=== PATIENT | male | born 1990 | race African-American/Black ===

== ENCOUNTER 2017-06-22 18:07 | Emergency (ER) | payer SELFPAY ==
[~2017-06-22] VITALS: Ht 180.3 cm; Wt 93.9 kg
[2017-06-22 18:30] VITALS: BP 110/86
[2017-06-22 22:11] LABS: Urine Bacteria FEW /hpf (None Seen); Urine Blood Negative /uL (Negative); Urine Mucus FEW (None Seen); Urine Specific Gravity 1.019 (1.001-1.035); Urine WBC 2 /hpf (0 - 3)
[2017-06-30] MEDS ORDERED: CLIN1CAP4 PO (12:24)
[2017-06-30] MEDS ORDERED: SACC250C PO (12:24)
== END 2017-06-23 02:06 | disposition left against medical advice (07) ==
LOC: ER 18:07
DX: M79.604 Pain in right leg (principal); Z53.21 Procedure and treatment not carried out due to patient leaving prior to being seen by health care provider
CPT/HCPCS: 81001

== ENCOUNTER 2017-06-24 23:32 | Inpatient (IN) | payer SELFPAY ==
[~2017-06-24] VITALS: Ht 180.3 cm; Wt 102.0 kg
[2017-06-25 00:49] LABS: Basophils # (auto) 0 uL; Basophils % (auto) 0.2 % (0.0-2.0); Eosinophils # (auto) 0.1 uL; Eosinophils % (auto) 0.8 % (0.0-7.0); Hematocrit 44.4 % (41.0-53.0); Hemoglobin 14.8 g/dL (13.5-17.5); Lymphocytes # (auto) 1.8 uL; Lymphocytes % (auto) 13.3 % (10.0-50.0); Mean Corpuscular Hgb Conc. 33.2 g/dL (32.0-36.0); Mean Corpuscular Volume 87.2 fL (80.0-100.0); Monocytes # (auto) 0.7 uL; Monocytes % (auto) 5.5 % (0.0-12.0); Neutrophils # (auto) 10.7 uL; Neutrophils % (auto) 80.2 % (37.0-80.0); Nucleated Red Blood Cells % 0.2 %; Platelet Count (auto) 291 10^3/uL (140-450); Red Blood Cells 5.09 10^6/uL (4.5-5.90); Red Cell Distribution Width 13.9 % (11.8-14.3); White Blood Cell 13.3 10^3/uL (4.4-10.8)
[2017-06-25 01:08] LABS: Albumin 3.3 g/dL (3.4-5.0); BUN/Creatinine Ratio 9.7; Calcium 9.5 mg/dL (8.5-10.1); Potassium 4.4 mmol/L (3.5-5.1)
[2017-06-25 01:10] LABS: Bilirubin, Total 0.3 mg/dL (0.2-1.0); Total Protein 9.8 g/dL (6.4-8.2)
[2017-06-25] MEDS ORDERED: CLINDAMYCIN 600MG IV 50 ML IV ONE (04:15)
[2017-06-25] MEDS ORDERED: HYDROcodone-ACET 5/325MG TAB PO ONE (04:15)
[2017-06-25] MEDS ORDERED: ACETAMINOPHEN 500 MG TAB PO PRN (05:15)
[2017-06-25] MEDS ORDERED: ONDANSETRON HCL 4 MG/2 ML VIAL IV PRN (05:15)
[2017-06-25] MEDS: CLINDAMYCIN 600MG IV 50 ML IV SCH ×3 (07:20→21:58)
[2017-06-25] MEDS: cefTRIAXone 1GM/10ml IVPUSH 10 ML IV SCH (09:32)
[2017-06-25 13:00] VITALS: BP 120/77
[2017-06-25] MEDS: SODIUM CHLORIDE 0.9% 1,000 ML IV SCH (16:04)
[2017-06-25] MEDS: HYDROcodone-ACET 5/325MG TAB PO PRN (16:12)
[2017-06-25 16:30] LABS: Urine Bacteria NONE SEEN /hpf (None Seen); Urine Blood Negative /uL (Negative); Urine Mucus FEW (None Seen); Urine Specific Gravity 1.034 (1.001-1.035); Urine WBC 3 /hpf (0 - 3)
[2017-06-25 16:34] VITALS: BP 114/66
[2017-06-25 16:40] LABS: Alcohol, Urine < 3.0 mg/dL (0-5); Amphetamine Screen, Urine NEGATIVE (NEGATIVE); Barbiturate Scree,Urine NEGATIVE (NEGATIVE); Benzodiazephine Screen, Urine NEGATIVE (NEGATIVE); Cannabinoid Screen, Urine NEGATIVE (NEGATIVE); Cocaine Screen, Urine NEGATIVE (NEGATIVE); Opiate Scree,Urine NEGATIVE (NEGATIVE); Phencyclidine Screen, Urine NEGATIVE (NEGATIVE)
[2017-06-25 22:00] VITALS: BP 134/85
[2017-06-26 05:10] VITALS: BP 137/85
[2017-06-26 06:01] LABS: Basophils # (auto) 0 uL; Basophils % (auto) 0.2 % (0.0-2.0); Eosinophils # (auto) 0.2 uL; Eosinophils % (auto) 1.2 % (0.0-7.0); Hematocrit 41.1 % (41.0-53.0); Hemoglobin 13.8 g/dL (13.5-17.5); Lymphocytes # (auto) 1.6 uL; Lymphocytes % (auto) 11.6 % (10.0-50.0); Mean Corpuscular Hemoglobin 29.5 pg (28.0-32.0); Mean Corpuscular Hgb Conc. 33.7 g/dL (32.0-36.0); Mean Corpuscular Volume 87.5 fL (80.0-100.0); Monocytes # (auto) 0.8 uL; Monocytes % (auto) 5.6 % (0.0-12.0); Neutrophils # (auto) 11.2 uL; Neutrophils % (auto) 81.4 % (37.0-80.0); Nucleated Red Blood Cells % 0.1 %; Platelet Count (auto) 241 10^3/uL (140-450); White Blood Cell 13.8 10^3/uL (4.4-10.8)
[2017-06-26 06:07] LABS: Potassium 3.6 mmol/L (3.5-5.1)
[2017-06-26 06:19] LABS: BUN/Creatinine Ratio 9.6; Calcium 8.6 mg/dL (8.5-10.1)
[2017-06-26] MEDS: HYDROcodone-ACET 5/325MG TAB PO PRN ×2 (06:36→16:17)
[2017-06-26] MEDS: CLINDAMYCIN 600MG IV 50 ML IV SCH ×3 (06:37→22:00)
[2017-06-26 08:00] VITALS: BP 128/72
[2017-06-26] MEDS: SODIUM CHLORIDE 0.9% 1,000 ML IV SCH ×2 (08:25→16:13)
[2017-06-26 09:00] VITALS: BP 128/72
[2017-06-26] MEDS: cefTRIAXone 1GM/10ml IVPUSH 10 ML IV SCH (09:26)
[2017-06-26 13:00] VITALS: BP 122/70
[2017-06-26 17:00] VITALS: BP 118/69
[2017-06-26 22:08] VITALS: BP 117/69
[2017-06-27 04:55] VITALS: BP 107/62
[2017-06-27 05:56] LABS: Basophils # (auto) 0 uL; Basophils % (auto) 0.2 % (0.0-2.0); Eosinophils # (auto) 0.1 uL; Eosinophils % (auto) 1.3 % (0.0-7.0); Hematocrit 41.1 % (41.0-53.0); Hemoglobin 13.8 g/dL (13.5-17.5); Lymphocytes # (auto) 1.8 uL; Lymphocytes % (auto) 16.7 % (10.0-50.0); Mean Corpuscular Hemoglobin 29.4 pg (28.0-32.0); Mean Corpuscular Hgb Conc. 33.6 g/dL (32.0-36.0); Mean Corpuscular Volume 87.5 fL (80.0-100.0); Monocytes # (auto) 0.9 uL; Neutrophils # (auto) 7.9 uL; Neutrophils % (auto) 73.8 % (37.0-80.0); Nucleated Red Blood Cells % 0.1 %; Platelet Count (auto) 252 10^3/uL (140-450); White Blood Cell 10.7 10^3/uL (4.4-10.8)
[2017-06-27] MEDS: CLINDAMYCIN 600MG IV 50 ML IV SCH ×3 (05:59→21:40)
[2017-06-27 09:00] VITALS: BP_SYST 111; BP_SYST 112; BP_DIAS 53; BP_DIAS 63
[2017-06-27] MEDS: SODIUM CHLORIDE 0.9% 1,000 ML IV SCH (09:31)
[2017-06-27] MEDS: cefTRIAXone 1GM/10ml IVPUSH 10 ML IV SCH (09:31)
[2017-06-27 13:00] VITALS: BP 108/52
[2017-06-27 16:21] VITALS: BP 101/66
[2017-06-27 16:23] VITALS: BP 123/66
[2017-06-27 18:22] LABS: INR 1.04 (0.9-1.15); Partial Thromboplastin Time 34.2 sec (22.64-33.71); Prothrombin Time 11.3 sec (9.37-12.3)
[2017-06-27 21:21] VITALS: BP 117/59
[2017-06-27] MEDS: ASCORBIC ACID 500 MG TAB PO SCH (21:40)
[2017-06-28 05:03] VITALS: BP 119/67
[2017-06-28] MEDS: SODIUM CHLORIDE 0.9% 1,000 ML IV SCH ×2 (05:49→21:55)
[2017-06-28] MEDS: CLINDAMYCIN 600MG IV 50 ML IV SCH ×3 (05:49→21:55)
[2017-06-28 08:09] VITALS: BP 113/68
[2017-06-28] MEDS: MULTIPLE VITAMIN TAB PO SCH (10:00)
[2017-06-28] MEDS: ASCORBIC ACID 500 MG TAB PO SCH ×2 (10:00→21:55)
[2017-06-28] MEDS: cefTRIAXone 1GM/10ml IVPUSH 10 ML IV SCH (10:05)
[2017-06-28 11:32] VITALS: BP 117/76
[2017-06-28] MEDS ORDERED: ceFAZolin 1GM VL ONE ×2 (12:21→12:23)
[2017-06-28] MEDS ORDERED: BUPIVACAINE 0.75% INJ 10ML MPV SDV IJ ONE (12:21)
[2017-06-28] MEDS ORDERED: NEOMYCIN-BACITRACIN-POLYM 15GM TOP OINT TOP ONE (12:21)
[2017-06-28] MEDS ORDERED: LIDOCAINE HCL 2 %PF INJ 10ML AMP IJ ONE (12:34)
[2017-06-28] MEDS ORDERED: PROPOFOL 10 MG/ML 20 ML IV ONE (12:34)
[2017-06-28] MEDS ORDERED: MIDAZOLAM HCL 1MG/1ML-2 ML VIAL ONE ×2 (12:34→12:55)
[2017-06-28] MEDS ORDERED: METOCLOPRAMIDE HCL 5MG/ml INJ 2ml VIAL ONE (12:38)
[2017-06-28] MEDS ORDERED: KETAMINE HCL 1 ML ONE (12:43)
[2017-06-28] MEDS ORDERED: diphenhdrAMINE HCL 50 MG/1 ML VL ONE (12:52)
[2017-06-28] MEDS ORDERED: MORPHINE SULFATE 4 MG/ML SYR/VIAL IV PRN (13:00)
[2017-06-28] MEDS ORDERED: KETOROLAC TROMETH 30 MG/ML 1ML VIAL IV PRN (13:00)
[2017-06-28] MEDS ORDERED: ONDANSETRON HCL 4 MG/2 ML VIAL IV ONE (13:00)
[2017-06-28] MEDS ORDERED: NALOXONE HCL 0.4 MG/ML VIAL IV PRN (13:00)
[2017-06-28 16:47] VITALS: BP 123/61
[2017-06-28 22:00] VITALS: BP 115/65
[2017-06-29 05:00] VITALS: BP 113/66
[2017-06-29] MEDS: CLINDAMYCIN 600MG IV 50 ML IV SCH ×3 (05:35→23:01)
[2017-06-29 06:14] LABS: Basophils # (auto) 0 uL; Basophils % (auto) 0.3 % (0.0-2.0); Eosinophils # (auto) 0.2 uL; Eosinophils % (auto) 2.3 % (0.0-7.0); Hematocrit 40.2 % (41.0-53.0); Hemoglobin 13.4 g/dL (13.5-17.5); Lymphocytes # (auto) 2.2 uL; Lymphocytes % (auto) 28.8 % (10.0-50.0); Mean Corpuscular Hemoglobin 28.9 pg (28.0-32.0); Mean Corpuscular Hgb Conc. 33.3 g/dL (32.0-36.0); Mean Corpuscular Volume 86.9 fL (80.0-100.0); Monocytes # (auto) 0.7 uL; Monocytes % (auto) 8.4 % (0.0-12.0); Neutrophils # (auto) 4.6 uL; Neutrophils % (auto) 60.2 % (37.0-80.0); Nucleated Red Blood Cells % 0.1 %; Platelet Count (auto) 291 10^3/uL (140-450); Red Blood Cells 4.63 10^6/uL (4.5-5.90); Red Cell Distribution Width 13.6 % (11.8-14.3); White Blood Cell 7.7 10^3/uL (4.4-10.8)
[2017-06-29 06:29] LABS: BUN/Creatinine Ratio 11.9; Calcium 8.7 mg/dL (8.5-10.1); Potassium 4.1 mmol/L (3.5-5.1)
[2017-06-29 09:00] VITALS: BP 122/68
[2017-06-29] MEDS: ASCORBIC ACID 500 MG TAB PO SCH ×2 (09:26→23:02)
[2017-06-29] MEDS: MULTIPLE VITAMIN TAB PO SCH (09:26)
[2017-06-29] MEDS: cefTRIAXone 1GM/10ml IVPUSH 10 ML IV SCH (09:29)
[2017-06-29] MEDS: HYDROcodone-ACET 5/325MG TAB PO PRN (11:35)
[2017-06-29 13:00] VITALS: BP 103/58
[2017-06-29 17:03] VITALS: BP 121/63
[2017-06-29] MEDS: SODIUM CHLORIDE 0.9% 1,000 ML IV SCH (23:01)
[2017-06-30 05:32] VITALS: BP 113/60
[2017-06-30] MEDS: CLINDAMYCIN 600MG IV 50 ML IV SCH ×2 (06:19→13:12)
[2017-06-30 09:00] VITALS: BP 101/62
[2017-06-30] MEDS: cefTRIAXone 1GM/10ml IVPUSH 10 ML IV SCH (09:31)
[2017-06-30] MEDS: ASCORBIC ACID 500 MG TAB PO SCH (09:32)
[2017-06-30] MEDS: MULTIPLE VITAMIN TAB PO SCH (09:32)
[2017-06-30] MEDS: HYDROcodone-ACET 5/325MG TAB PO PRN (09:33)
[2017-06-30] MEDS ORDERED: CLIN1CAP4 PO (12:24)
[2017-06-30] MEDS ORDERED: SACC250C PO (12:24)
[2017-06-30 12:41] VITALS: BP 101/62
[2017-06-30 13:05] VITALS: BP 101/62
== END 2017-06-30 14:35 | disposition home or self-care (01) | DRG 872 ==
LOC: ER 23:36 → OVERFLOW 23:37 → WEST WING 06-25 08:07
PROVIDERS: ADMIT Nurse Practitioner Family; ATTEND Internal Medicine
PROC: 0S9F3ZZ Drainage of Right Ankle Joint, Percutaneous Approach (ICD-10-PCS; principal; 2017-06-28 12:35)
DX: A41.02 Sepsis due to Methicillin resistant Staphylococcus aureus (principal); L02.415 Cutaneous abscess of right lower limb; L03.115 Cellulitis of right lower limb; I89.0 Lymphedema, not elsewhere classified; R22.9 Localized swelling, mass and lump, unspecified
CPT/HCPCS: 36415; 71045; 73700; 80048; 80053; 80307; 81001; 83605; 85025; 85610; 85730; 86850; 86900; 86901; 87040; 87070; 87075; 87077; 87186; 87205; 93005; 93971; 96365; J0690; J2250; J2704; J3490

== ENCOUNTER 2017-11-02 07:31 | Inpatient (IN) | payer SELFPAY ==
[~2017-11-02] VITALS: Ht 180.3 cm; Wt 105.0 kg
[~2017-11-02 07:31] MED LIST: CLIN1CAP4 PO; SACC250C PO
[2017-11-02 08:38] LABS: Basophils # (auto) 0 uL; Basophils % (auto) 0.2 % (0.0-2.0); Eosinophils # (auto) 0 uL; Eosinophils % (auto) 0.3 % (0.0-7.0); Hematocrit 50.8 % (41.0-53.0); Hemoglobin 16.8 g/dL (13.5-17.5); Lymphocytes # (auto) 1.7 uL; Lymphocytes % (auto) 12.7 % (10.0-50.0); Mean Corpuscular Hemoglobin 28.9 pg (28.0-32.0); Mean Corpuscular Hgb Conc. 33.1 g/dL (32.0-36.0); Mean Corpuscular Volume 87.4 fL (80.0-100.0); Monocytes # (auto) 0.4 uL; Neutrophils # (auto) 11.2 uL; Neutrophils % (auto) 83.8 % (37.0-80.0); Platelet Count (auto) 169 10^3/uL (140-450); Red Blood Cells 5.81 10^6/uL (4.5-5.90); Red Cell Distribution Width 14.5 % (11.8-14.3); White Blood Cell 13.4 10^3/uL (4.4-10.8)
[2017-11-02 09:11] LABS: Albumin 3.9 g/dL (3.4-5.0); Calcium 8.7 mg/dL (8.5-10.1); Potassium 3.8 mmol/L (3.5-5.1)
[2017-11-02 09:13] LABS: BUN/Creatinine Ratio 11.8
[2017-11-02 09:15] LABS: Bilirubin, Total 0.7 mg/dL (0.2-1.0); Total Protein 8.7 g/dL (6.4-8.2)
[2017-11-02] MEDS ORDERED: cefTRIAXone 1GM/10ml IVPUSH 10 ML IV ONE (13:00)
[2017-11-02] MEDS ORDERED: MORPHINE SULF(PF) 0.5MG/ML 10ML VIAL IV PRN (14:15)
[2017-11-02] MEDS ORDERED: NITROGLYCERIN 0.4 MG SL TAB SL PRN (14:15)
[2017-11-02] MEDS ORDERED: KETOROLAC TROMETH 30 MG/ML 1ML VIAL IV PRN (14:15)
[2017-11-02] MEDS ORDERED: TEMAZEPAM 15 MG CAP PO PRN (14:15)
[2017-11-02] MEDS ORDERED: LORazepam 0.5 MG TAB PO PRN (14:15)
[2017-11-02] MEDS ORDERED: ACETAMINOPHEN 500 MG TAB PO PRN (14:15)
[2017-11-02] MEDS: SODIUM CHLORIDE 0.9% 1,000 ML IV SCH (14:54)
[2017-11-02] MEDS: CLINDAMYCIN 600MG IV 50 ML IV SCH ×2 (14:54→22:38)
[2017-11-02 17:27] VITALS: BP_SYST 117; BP_SYST 120; BP_DIAS 57; BP_DIAS 62
[2017-11-02 17:30] LABS: INR 1.13 (0.9-1.15); Partial Thromboplastin Time 30.6 sec (23.78-33.04)
[2017-11-02 21:30] VITALS: BP 90/51
[2017-11-03] MEDS: SODIUM CHLORIDE 0.9% 1,000 ML IV SCH ×3 (04:09→20:03)
[2017-11-03 04:50] VITALS: BP 93/52
[2017-11-03] MEDS: CLINDAMYCIN 600MG IV 50 ML IV SCH ×3 (06:36→22:40)
[2017-11-03 07:31] VITALS: BP 101/62
[2017-11-03 08:02] LABS: Basophils # (auto) 0 uL; Basophils % (auto) 0.2 % (0.0-2.0); Eosinophils # (auto) 0 uL; Hematocrit 43.9 % (41.0-53.0); Hemoglobin 14.8 g/dL (13.5-17.5); Lymphocytes # (auto) 1.6 uL; Lymphocytes % (auto) 9.5 % (10.0-50.0); Mean Corpuscular Hemoglobin 29.3 pg (28.0-32.0); Mean Corpuscular Hgb Conc. 33.6 g/dL (32.0-36.0); Monocytes # (auto) 0.7 uL; Monocytes % (auto) 3.9 % (0.0-12.0); Neutrophils # (auto) 14.7 uL; Neutrophils % (auto) 86.4 % (37.0-80.0); Platelet Count (auto) 144 10^3/uL (140-450); Red Blood Cells 5.05 10^6/uL (4.5-5.90); Red Cell Distribution Width 14.7 % (11.8-14.3)
[2017-11-03] MEDS ORDERED: cefTRIAXone 1GM/10ml IVPUSH 10 ML IV SCH (09:00)
[2017-11-03] MEDS: PANTOPRAZOLE 40 MG TAB PO SCH (10:36)
[2017-11-03] MEDS: HYDROcodone-ACET 5/325MG TAB PO PRN ×2 (10:38→16:29)
[2017-11-03 12:28] VITALS: BP 114/69
[2017-11-03] MEDS ORDERED: VANCOMYCIN 1GM/250ML 250 ML IV ONE (13:45)
[2017-11-03] MEDS ORDERED: VANCOMYCIN PER PHARMACY 0 MG IV SCH (13:45)
[2017-11-03] MEDS: VANCOMYCIN 1,250 MG in D5W 5% 250 ML IV SCH (16:00)
[2017-11-03 16:47] VITALS: BP 122/66
[2017-11-03 21:52] VITALS: BP 122/63
[2017-11-03 23:07] LABS: Urine Bacteria NONE SEEN /hpf (None Seen); Urine Blood Negative /uL (Negative); Urine Specific Gravity 1.011 (1.001-1.035); Urine WBC 32 /hpf (0 - 3)
[2017-11-04] MEDS: VANCOMYCIN 1,250 MG in D5W 5% 250 ML IV SCH (02:57)
[2017-11-04 04:53] VITALS: BP 116/63
[2017-11-04] MEDS: CLINDAMYCIN 600MG IV 50 ML IV SCH (06:18)
[2017-11-04] MEDS: SODIUM CHLORIDE 0.9% 1,000 ML IV SCH (06:19)
[2017-11-04 08:00] VITALS: BP 98/63
[2017-11-04] MEDS: PANTOPRAZOLE 40 MG TAB PO SCH (09:26)
[2017-11-04 12:52] VITALS: BP 110/56
== END 2017-11-04 14:20 | disposition home or self-care (01) | DRG 603 ==
LOC: ER 07:31 → TELE 07:32 → TELE-EAST 15:32
PROVIDERS: ADMIT Internal Medicine; ATTEND Internal Medicine Pulmonary Disease
DX: L03.115 Cellulitis of right lower limb (principal); I89.0 Lymphedema, not elsewhere classified; Z82.49 Family history of ischemic heart disease and other diseases of the circulatory system; Z86.14 Personal history of Methicillin resistant Staphylococcus aureus infection
CPT/HCPCS: 36415; 71046; 73590; 80053; 81001; 83605; 83735; 85025; 85610; 85652; 85730; 87040; 87081; 93971; 94761; 96361; 96365; 96375; J3490; J7060

== ENCOUNTER 2018-03-07 13:38 | Inpatient (IN) | payer MEDICAID ==
[~2018-03-07] VITALS: Ht 180.3 cm; Wt 110.5 kg
[2018-03-07 14:37] LABS: Basophils # (auto) 0.1 uL; Basophils % (auto) 0.4 % (0.0-2.0); Eosinophils # (auto) 0 uL; Eosinophils % (auto) 0.1 % (0.0-7.0); Hematocrit 47.2 % (41.0-53.0); Hemoglobin 15.7 g/dL (13.5-17.5); Lymphocytes % (auto) 6.9 % (10.0-50.0); Mean Corpuscular Hemoglobin 29.3 pg (28.0-32.0); Mean Corpuscular Hgb Conc. 33.3 g/dL (32.0-36.0); Mean Corpuscular Volume 88.2 fL (80.0-100.0); Monocytes # (auto) 0.5 uL; Monocytes % (auto) 3.2 % (0.0-12.0); Neutrophils # (auto) 12.8 uL; Neutrophils % (auto) 89.4 % (37.0-80.0); Nucleated Red Blood Cells % 0.1 %; Platelet Count (auto) 186 10^3/uL (140-450); Red Blood Cells 5.36 10^6/uL (4.5-5.90); Red Cell Distribution Width 13.9 % (11.8-14.3); White Blood Cell 14.3 10^3/uL (4.4-10.8)
[2018-03-07 14:54] LABS: Albumin 3.6 g/dL (3.4-5.0); Calcium 8.8 mg/dL (8.5-10.1); Potassium 3.4 mmol/L (3.5-5.1)
[2018-03-07 14:56] LABS: BUN/Creatinine Ratio 13.4; Bilirubin, Total 0.4 mg/dL (0.2-1.0); Total Protein 8.6 g/dL (6.4-8.2)
[2018-03-07] MEDS ORDERED: SODIUM CHLORIDE 0.9% 1,000 ML IVB ONE (15:57)
[2018-03-07] MEDS ORDERED: ACETAMINOPHEN 500 MG TAB PO ONE (16:00)
[2018-03-07] MEDS ORDERED: cefTRIAXone 1GM/50ML D5W 50 ML IV ONE (17:00)
[2018-03-07 17:43] LABS: INR 1.01 (0.9-1.15); Partial Thromboplastin Time 25.5 sec (23.78-33.04); Prothrombin Time 10.8 sec (9.27-12.13)
[2018-03-07] MEDS ORDERED: IBUPROFEN 600 MG TAB PO ONE (17:45)
[2018-03-07] MEDS ORDERED: SODIUM CHLORIDE 0.9% 1,000 ML IV ONE (18:15)
[2018-03-07] MEDS ORDERED: IOHEXOL 300 MG/ML 100ML BOTTLE IJ ONE ×2 (18:55→20:03)
[2018-03-07] MEDS ORDERED: PIPERACILLIN-TAZO 4.5GM 100 ML IV ONE (19:15)
[2018-03-07] MEDS ORDERED: VANCOMYCIN 1GM/250ML 250 ML IV ONE (19:15)
[2018-03-07] MEDS ORDERED: ACETAMINOPHEN 500 MG TAB PO PRN (20:45)
[2018-03-07] MEDS ORDERED: TEMAZEPAM 15 MG CAP PO PRN (20:45)
[2018-03-07] MEDS ORDERED: ONDANSETRON HCL 4 MG/2 ML VIAL IV PRN (20:45)
[2018-03-07] MEDS ORDERED: VANCOMYCIN PER PHARMACY 0 MG IV SCH (20:45)
[2018-03-07] MEDS ORDERED: LORazepam 0.5 MG TAB PO PRN (20:45)
[2018-03-07] MEDS ORDERED: traMADol HCL 50 MG TAB PO PRN (20:45)
[2018-03-07] MEDS ORDERED: KETOROLAC TROMETH 30 MG/ML 1ML VIAL IV PRN (20:45)
[2018-03-07] MEDS ORDERED: NITROGLYCERIN 0.4 MG SL TAB SL PRN (22:45)
[2018-03-07] MEDS ORDERED: MORPHINE SULFATE 4 MG/ML SYR/VIAL IV PRN (22:45)
[2018-03-08] MEDS: VANCOMYCIN 1,250 MG in D5W 5% 250 ML IV SCH ×3 (01:52→18:26)
[2018-03-08] MEDS: PIPERACILLIN-TAZO 4.5GM 100 ML IV SCH ×3 (03:56→21:55)
[2018-03-08 04:08] LABS: Basophils # (auto) 0 uL; Eosinophils # (auto) 0 uL; Eosinophils % (auto) 0.2 % (0.0-7.0); Hematocrit 42.3 % (41.0-53.0); Lymphocytes # (auto) 1.1 uL; Lymphocytes % (auto) 6.5 % (10.0-50.0); Mean Corpuscular Hemoglobin 28.9 pg (28.0-32.0); Mean Corpuscular Hgb Conc. 33.1 g/dL (32.0-36.0); Mean Corpuscular Volume 87.5 fL (80.0-100.0); Monocytes # (auto) 0.6 uL; Monocytes % (auto) 3.6 % (0.0-12.0); Neutrophils # (auto) 14.8 uL; Neutrophils % (auto) 89.7 % (37.0-80.0); Platelet Count (auto) 147 10^3/uL (140-450); Red Blood Cells 4.83 10^6/uL (4.5-5.90); Red Cell Distribution Width 14.1 % (11.8-14.3); White Blood Cell 16.5 10^3/uL (4.4-10.8)
[2018-03-08 14:45] VITALS: BP 103/64
[2018-03-09] MEDS: VANCOMYCIN 1,250 MG in D5W 5% 250 ML IV SCH (01:55)
[2018-03-09] MEDS ORDERED: PIPERACILLIN-TAZO 4.5GM 100 ML IV ONE (04:18)
[2018-03-09] MEDS: PIPERACILLIN-TAZO 4.5GM 100 ML IV SCH ×3 (04:38→20:46)
[2018-03-09 05:00] VITALS: BP 116/67
[2018-03-09 09:00] VITALS: BP 97/64
[2018-03-09] MEDS ORDERED: VANCOMYCIN 1,250 MG in D5W 5% 250 ML IV ONE (11:00)
[2018-03-09 13:00] VITALS: BP 116/65
[2018-03-09 15:14] LABS: Basophils # (auto) 0 uL; Basophils % (auto) 0.4 % (0.0-2.0); Eosinophils # (auto) 0.1 uL; Eosinophils % (auto) 1.2 % (0.0-7.0); Hematocrit 42.9 % (41.0-53.0); Hemoglobin 14.6 g/dL (13.5-17.5); Lymphocytes # (auto) 0.8 uL; Lymphocytes % (auto) 8.4 % (10.0-50.0); Mean Corpuscular Hemoglobin 29.8 pg (28.0-32.0); Mean Corpuscular Volume 87.8 fL (80.0-100.0); Monocytes # (auto) 0.4 uL; Monocytes % (auto) 4.2 % (0.0-12.0); Neutrophils # (auto) 8.6 uL; Neutrophils % (auto) 85.8 % (37.0-80.0); Nucleated Red Blood Cells % 0.1 %; Platelet Count (auto) 151 10^3/uL (140-450); Red Blood Cells 4.89 10^6/uL (4.5-5.90); Red Cell Distribution Width 14.4 % (11.8-14.3)
[2018-03-09 15:33] LABS: Calcium 8.5 mg/dL (8.5-10.1); Potassium 3.5 mmol/L (3.5-5.1)
[2018-03-09 15:36] LABS: BUN/Creatinine Ratio 8.5; Bilirubin, Total 0.3 mg/dL (0.2-1.0); Total Protein 8.2 g/dL (6.4-8.2)
[2018-03-09 16:00] VITALS: BP 107/64
[2018-03-09 22:00] VITALS: BP 120/63
[2018-03-10] MEDS: VANCOMYCIN 1,250 MG in D5W 5% 250 ML IV SCH ×3 (00:10→23:04)
[2018-03-10] MEDS: PIPERACILLIN-TAZO 4.5GM 100 ML IV SCH ×3 (03:37→21:43)
[2018-03-10 05:00] VITALS: BP 105/55
[2018-03-10 05:04] LABS: Basophils # (auto) 0 uL; Basophils % (auto) 0.3 % (0.0-2.0); Eosinophils # (auto) 0.2 uL; Eosinophils % (auto) 1.8 % (0.0-7.0); Hematocrit 40.9 % (41.0-53.0); Hemoglobin 13.9 g/dL (13.5-17.5); Lymphocytes # (auto) 1.1 uL; Lymphocytes % (auto) 11.9 % (10.0-50.0); Mean Corpuscular Hemoglobin 29.9 pg (28.0-32.0); Mean Corpuscular Hgb Conc. 34.1 g/dL (32.0-36.0); Mean Corpuscular Volume 87.7 fL (80.0-100.0); Monocytes # (auto) 0.6 uL; Platelet Count (auto) 148 10^3/uL (140-450); Red Blood Cells 4.66 10^6/uL (4.5-5.90); White Blood Cell 8.9 10^3/uL (4.4-10.8)
[2018-03-10 05:19] LABS: BUN/Creatinine Ratio 10.1; Calcium 7.8 mg/dL (8.5-10.1); Potassium 3.6 mmol/L (3.5-5.1)
[2018-03-10 09:00] VITALS: BP 111/58
[2018-03-10 12:59] VITALS: BP 111/50
[2018-03-10 17:04] VITALS: BP 122/66
[2018-03-10 22:00] VITALS: BP 120/59
[2018-03-11] MEDS: PIPERACILLIN-TAZO 4.5GM 100 ML IV SCH (03:42)
[2018-03-11 05:00] VITALS: BP 108/55
[2018-03-11 05:15] LABS: Basophils # (auto) 0 uL; Basophils % (auto) 0.3 % (0.0-2.0); Eosinophils # (auto) 0.2 uL; Eosinophils % (auto) 3.2 % (0.0-7.0); Hematocrit 42.4 % (41.0-53.0); Hemoglobin 14.2 g/dL (13.5-17.5); Lymphocytes # (auto) 1.2 uL; Lymphocytes % (auto) 17.1 % (10.0-50.0); Mean Corpuscular Hemoglobin 29.7 pg (28.0-32.0); Mean Corpuscular Hgb Conc. 33.6 g/dL (32.0-36.0); Mean Corpuscular Volume 88.6 fL (80.0-100.0); Monocytes # (auto) 0.5 uL; Monocytes % (auto) 7.1 % (0.0-12.0); Neutrophils # (auto) 5.1 uL; Neutrophils % (auto) 72.3 % (37.0-80.0); Nucleated Red Blood Cells % 0.1 %; Platelet Count (auto) 172 10^3/uL (140-450); Red Blood Cells 4.79 10^6/uL (4.5-5.90); Red Cell Distribution Width 14.5 % (11.8-14.3)
[2018-03-11 05:37] LABS: Calcium 8.5 mg/dL (8.5-10.1)
[2018-03-11 05:43] LABS: Albumin 2.8 g/dL (3.4-5.0); BUN/Creatinine Ratio 9.8; Bilirubin, Total 0.3 mg/dL (0.2-1.0); Total Protein 7.7 g/dL (6.4-8.2)
[2018-03-11 08:53] VITALS: BP 132/66
[2018-03-11] MEDS ORDERED: VANCOMYCIN 1,250 MG in D5W 5% 250 ML IV SCH (12:00)
[2018-03-11 13:00] VITALS: BP 115/52
[2018-03-11] MEDS ORDERED: PIPERACILLIN-TAZO 4.5GM 100 ML IV SCH (14:00)
[2018-03-11 17:50] VITALS: BP 115/52
[2018-03-11 20:40] VITALS: BP 125/78
[2018-03-11 20:41] VITALS: BP 125/78
== END 2018-03-11 20:40 | disposition home health service (06) | DRG 720 ==
LOC: ER 13:38 → TELE 13:39 → TELE-CENTR 03-08 14:45
PROVIDERS: ADMIT Nurse Practitioner; ATTEND Internal Medicine
DX: A41.9 Sepsis, unspecified organism (principal); E44.0 Moderate protein-calorie malnutrition; L03.115 Cellulitis of right lower limb; I89.0 Lymphedema, not elsewhere classified; L02.419 Cutaneous abscess of limb, unspecified; L98.8 Other specified disorders of the skin and subcutaneous tissue; B96.5 Pseudomonas (aeruginosa) (mallei) (pseudomallei) as the cause of diseases classified elsewhere; B95.61 Methicillin susceptible Staphylococcus aureus infection as the cause of diseases classified elsewhere; E87.6 Hypokalemia; Z68.34 Body mass index [BMI] 34.0-34.9, adult; Z82.49 Family history of ischemic heart disease and other diseases of the circulatory system
CPT/HCPCS: 36415; 71045; 73701; 80048; 80053; 80202; 82565; 83605; 83735; 85025; 85610; 85652; 85730; 87040; 87077; 87186; 87205; 96361; 96365; 96368; G0378; J0696; J2543; J7060

== ENCOUNTER 2018-11-15 21:45 | Emergency (ER) | payer MEDICAID ==
[~2018-11-15] VITALS: Ht 172.7 cm; Wt 80.7 kg
[~2018-11-15 21:45] MED LIST changes: +CEPH250C PO
[2018-11-15] MEDS ORDERED: ACETAMINOPHEN 325 MG TAB PO ONE (22:00)
[2018-11-15 22:21] LABS: Basophils # (auto) 0 uL; Basophils % (auto) 0.6 % (0.0-2.0); Eosinophils # (auto) 0 uL; Eosinophils % (auto) 0.6 % (0.0-7.0); Hematocrit 41.7 % (41.0-53.0); Lymphocytes # (auto) 1.3 uL; Lymphocytes % (auto) 22.8 % (10.0-50.0); Mean Corpuscular Hemoglobin 28.6 pg (28.0-32.0); Mean Corpuscular Hgb Conc. 33.6 g/dL (32.0-36.0); Monocytes # (auto) 0.5 uL; Monocytes % (auto) 8.6 % (0.0-12.0); Neutrophils # (auto) 3.7 uL; Neutrophils % (auto) 67.4 % (37.0-80.0); Nucleated Red Blood Cells % 0.1 %; Platelet Count (auto) 110 10^3/uL (140-450); Red Blood Cells 4.91 10^6/uL (4.5-5.90); Red Cell Distribution Width 14.4 % (11.8-14.3); White Blood Cell 5.5 10^3/uL (4.4-10.8)
[2018-11-15 22:34] LABS: Alanine Aminotransferase 32 U/L (16-61); Albumin 3.1 g/dL (3.4-5.0); Anion Gap 7 (5-15); Aspartate Aminotransferase 35 U/L (15-37); BUN/Creatinine Ratio 7.1; Blood Urea Nitrogen 9 mg/dL (7-18); Calcium 7.9 mg/dL (8.5-10.1); Carbon Dioxide 23 mmol/L (21-32); Chloride 108 mmol/L (98-107); GFR African American 87 mL/min; GFR Non-African American 72 mL/min; Glucose 94 mg/dL (74-106); Potassium 3.2 mmol/L (3.5-5.1); Sodium 138 mmol/L (136-145)
[2018-11-15 22:39] LABS: Alkaline Phosphatase 80 U/L (45-117); Bilirubin, Total 0.7 mg/dL (0.2-1.0); Total Protein 7.5 g/dL (6.4-8.2)
[2018-11-16] MEDS ORDERED: metroNIDAZOLE 500 MG TAB PO ONE (01:00)
[2018-11-16] MEDS ORDERED: cefTRIAXone 1GM/50ML D5W 50 ML IV ONE (01:00)
[2018-11-16] MEDS ORDERED: POTASSIUM CHL 20 Meq TABLET PO ONE (01:15)
[2018-11-16 01:40] VITALS: BP 109/72
== END 2018-11-16 01:43 | disposition home or self-care (01) ==
LOC: EDBD 21:49 → EDUNIT# 21:49 → ER 21:53
DX: K52.9 Noninfective gastroenteritis and colitis, unspecified (principal); R50.9 Fever, unspecified; I50.9 Heart failure, unspecified; Z79.899 Other long term (current) drug therapy
CPT/HCPCS: 36415; 71045; 74176; 80053; 83605; 83880; 84484; 85025; 87040; 93005; 94761; 96365; 99284; J0696

== ENCOUNTER 2019-01-17 21:05 | Emergency (ER) | payer MEDICAID ==
[~2019-01-17] VITALS: Ht 180.3 cm; Wt 132.9 kg
[~2019-01-17 21:05] MED LIST changes: -CLIN1CAP4 PO; +CLIN300C8 PO
[2019-01-17 22:56] LABS: Basophils # (auto) 0 uL; Basophils % (auto) 0.2 % (0.0-2.0); Eosinophils # (auto) 0.1 uL; Eosinophils % (auto) 0.6 % (0.0-7.0); Hematocrit 44.5 % (41.0-53.0); Hemoglobin 14.8 g/dL (13.5-17.5); Lymphocytes % (auto) 27.5 % (10.0-50.0); Mean Corpuscular Hemoglobin 28.3 pg (28.0-32.0); Mean Corpuscular Hgb Conc. 33.3 g/dL (32.0-36.0); Monocytes # (auto) 0.7 uL; Monocytes % (auto) 6.3 % (0.0-12.0); Neutrophils # (auto) 7.1 uL; Neutrophils % (auto) 65.4 % (37.0-80.0); Platelet Count (auto) 218 10^3/uL (140-450); Red Blood Cells 5.24 10^6/uL (4.5-5.90); Red Cell Distribution Width 14.9 % (11.8-14.3); White Blood Cell 10.8 10^3/uL (4.4-10.8)
[2019-01-17 23:14] LABS: Albumin 3.4 g/dL (3.4-5.0); Calcium 8.5 mg/dL (8.5-10.1)
[2019-01-17 23:18] LABS: BUN/Creatinine Ratio 8.7
[2019-01-17 23:20] LABS: Bilirubin, Total 0.4 mg/dL (0.2-1.0); Total Protein 9.1 g/dL (6.4-8.2)
[2019-01-18 02:00] VITALS: BP 105/55
[2019-01-18] MEDS ORDERED: cefTRIAXone W LIDOCAINE 1 GM IM IM ONE (02:15)
[2019-01-18] MEDS ORDERED: ONDANSETRON ODT 4 MG TAB PO ONE (02:15)
[2019-01-18] MEDS ORDERED: HYDROcodone-ACET 5/325MG TAB PO ONE (02:15)
[2019-01-18] MEDS ORDERED: LIDOCAINE 2% (LOCAL ANESTH.) PF 5ml SDV ONE (02:41)
[2019-01-18] MEDS ORDERED: cefTRIAXone SOD 1,000 MG VL ONE (02:42)
== END 2019-01-18 03:48 | disposition home or self-care (01) ==
LOC: ER 21:05
DX: L03.116 Cellulitis of left lower limb (principal); I89.0 Lymphedema, not elsewhere classified
CPT/HCPCS: 36415; 80053; 83605; 85025; 87040; 96372; 99283; J0696; J2001; Q0162

== ENCOUNTER 2019-10-26 13:11 | Emergency (ER) | payer MEDICAID ==
[~2019-10-26] VITALS: Ht 180.3 cm; Wt 138.8 kg
[2019-10-26 13:30] VITALS: BP 112/83
== END 2019-10-26 14:55 | disposition home or self-care (01) ==
LOC: ER 13:11
DX: U07.1 COVID-19 (principal)
CPT/HCPCS: 71045; 87635

== ENCOUNTER 2020-03-23 00:56 | Inpatient (IN) | payer MEDICAID ==
[~2020-03-23] VITALS: Ht 180.3 cm; Wt 150.3 kg
[2020-03-23 11:55] LABS: Basophils # (auto) 0 10 ^3/uL (0-0.2); Basophils % (auto) 0.3 % (0.0-2.0); Eosinophils # (auto) 0 10 ^3/uL (0-0.8); Eosinophils % (auto) 0.3 % (0.0-7.0); Hematocrit 48.1 % (41.0-53.0); Hemoglobin 16.3 g/dL (13.5-17.5); Lymphocytes # (auto) 3.5 10 ^3/uL (0.4-5.4); Lymphocytes % (auto) 27.7 % (10.0-50.0); Mean Corpuscular Hemoglobin 29.4 pg (28.0-32.0); Mean Corpuscular Hgb Conc. 33.8 g/dL (32.0-36.0); Mean Corpuscular Volume 86.9 fL (80.0-100.0); Monocytes # (auto) 0.6 10 ^3/uL (0-1.3); Monocytes % (auto) 4.6 % (0.0-12.0); Neutrophils # (auto) 8.6 10 ^3/uL (1.6-8.6); Neutrophils % (auto) 67.1 % (37.0-80.0); Platelet Count (auto) 190 10^3/uL (140-450); Red Blood Cells 5.53 10^6/uL (4.5-5.90); Red Cell Distribution Width 14.4 % (11.8-14.3); White Blood Cell 12.8 10^3/uL (4.4-10.8)
[2020-03-23 12:22] LABS: Albumin 3.9 g/dL (3.4-5.0); Calcium 9.2 mg/dL (8.5-10.1)
[2020-03-23 12:25] LABS: BUN/Creatinine Ratio 13.5; Bilirubin, Total 0.4 mg/dL (0.2-1.0)
[2020-03-23] MEDS ORDERED: CLINDAMYCIN 600MG IV 50 ML IV ONE (13:00)
[2020-03-23] MEDS ORDERED: ONDANSETRON HCL 4 MG/2 ML VIAL IV ONE (13:00)
[2020-03-23] MEDS ORDERED: MORPHINE SULFATE 4 MG/ML SYR/VIAL IV ONE (13:00)
[2020-03-23] MEDS ORDERED: MORPHINE SULF INJ 2 MG/ML SYRINGE 1ML IV PRN ×3 (13:30→14:45)
[2020-03-23] MEDS ORDERED: NITROGLYCERIN 0.4 MG SL TAB SL PRN ×2 (13:30→14:45)
[2020-03-23] MEDS ORDERED: LORazepam 0.5 MG TAB PO PRN (14:45)
[2020-03-23] MEDS ORDERED: cefTRIAXone 1GM/50ML D5W 50 ML IV ONE (14:45)
[2020-03-23] MEDS ORDERED: DOCUSATE SOD 100 MG CAP PO PRN (14:45)
[2020-03-23] MEDS ORDERED: ALUM & MAG HYDROX-SIMETH LIQ(MAALOX) 30 ML PO PRN (14:45)
[2020-03-23] MEDS ORDERED: HYDROcodone-ACET 5/325MG TAB PO PRN (14:45)
[2020-03-23] MEDS ORDERED: ONDANSETRON HCL 4 MG/2 ML VIAL IV PRN (14:45)
[2020-03-23] MEDS ORDERED: ACETAMINOPHEN 325 MG TAB PO PRN (14:45)
[2020-03-23 15:20] LABS: Cholesterol 180 mg/dL (< 200)
[2020-03-23 15:24] LABS: HDL Cholesterol 63 mg/dL (40-59); LDL Cholesterol 108 mg/dL (< 100); Triglycerides 67 mg/dL (< 150)
[2020-03-23] MEDS ORDERED: METR500T PO ×2 (16:24→16:25)
[2020-03-23] MEDS ORDERED: IOHEXOL 350 MG/ML 100ML IJ ONE (16:31)
[2020-03-23 17:10] VITALS: BP 129/88
[2020-03-23 17:16] VITALS: BP 129/88
[2020-03-23] MEDS ORDERED: INFLUENZA QUAD 2020-2021 0.5 ML SYRG IM ONE (17:30)
[2020-03-23] MEDS: FUROSEMIDE 20 MG/2 ML VIAL IV SCH (17:34)
[2020-03-23 21:36] LABS: Urine Specific Gravity 1.007 (1.001-1.035)
[2020-03-23 21:37] LABS: Urine Bacteria NONE SEEN /hpf (None Seen); Urine Blood Negative /uL (Negative); Urine WBC 1 /hpf (0 - 3)
[2020-03-23 21:52] LABS: Alcohol, Urine < 3.0 mg/dL (0-10); Amphetamine Screen, Urine NEGATIVE (NEGATIVE); Barbiturate Scree,Urine NEGATIVE (NEGATIVE); Benzodiazephine Screen, Urine NEGATIVE (NEGATIVE); Cannabinoid Screen, Urine NEGATIVE (NEGATIVE); Cocaine Screen, Urine NEGATIVE (NEGATIVE); Opiate Scree,Urine NEGATIVE (NEGATIVE); Phencyclidine Screen, Urine NEGATIVE (NEGATIVE)
[2020-03-23 22:00] VITALS: BP 121/68
[2020-03-23] MEDS: ATORVASTATIN 20 MG TAB PO SCH (22:27)
[2020-03-23] MEDS: CLINDAMYCIN 600MG IV 50 ML IV SCH (22:36)
[2020-03-24 05:00] VITALS: BP 100/58
[2020-03-24] MEDS: CLINDAMYCIN 600MG IV 50 ML IV SCH ×3 (05:41→21:08)
[2020-03-24] MEDS: FUROSEMIDE 20 MG/2 ML VIAL IV SCH ×2 (05:42→17:15)
[2020-03-24] MEDS ORDERED: IOHEXOL 350 MG/ML 100ML IJ ONE (07:15)
[2020-03-24 08:00] VITALS: BP 118/75
[2020-03-24 09:00] VITALS: BP 118/75
[2020-03-24] MEDS: ASPirin 81 mg TAB PO SCH (09:15)
[2020-03-24] MEDS: ENOXAPARIN SOD 40 MG/0.4 ML SYRINGE SC SCH (09:16)
[2020-03-24] MEDS: cefTRIAXone 1GM/50ML D5W 50 ML IV SCH (09:16)
[2020-03-24 11:36] LABS: Basophils # (auto) 0 10 ^3/uL (0-0.2); Basophils % (auto) 0.4 % (0.0-2.0); Eosinophils # (auto) 0.1 10 ^3/uL (0-0.8); Eosinophils % (auto) 0.5 % (0.0-7.0); Hematocrit 45.4 % (41.0-53.0); Hemoglobin 15.3 g/dL (13.5-17.5); Lymphocytes # (auto) 3.1 10 ^3/uL (0.4-5.4); Lymphocytes % (auto) 30.4 % (10.0-50.0); Mean Corpuscular Hemoglobin 29.2 pg (28.0-32.0); Mean Corpuscular Hgb Conc. 33.6 g/dL (32.0-36.0); Mean Corpuscular Volume 86.9 fL (80.0-100.0); Monocytes # (auto) 0.5 10 ^3/uL (0-1.3); Monocytes % (auto) 4.8 % (0.0-12.0); Neutrophils # (auto) 6.5 10 ^3/uL (1.6-8.6); Neutrophils % (auto) 63.9 % (37.0-80.0); Platelet Count (auto) 201 10^3/uL (140-450); Red Blood Cells 5.22 10^6/uL (4.5-5.90); Red Cell Distribution Width 14.6 % (11.8-14.3); White Blood Cell 10.1 10^3/uL (4.4-10.8)
[2020-03-24 11:52] LABS: Albumin 3.4 g/dL (3.4-5.0); Calcium 8.6 mg/dL (8.5-10.1); Potassium 3.6 mmol/L (3.5-5.1)
[2020-03-24 11:55] LABS: Bilirubin, Total 0.3 mg/dL (0.2-1.0); Total Protein 8.7 g/dL (6.4-8.2)
[2020-03-24 13:00] VITALS: BP 106/69
[2020-03-24 17:00] VITALS: BP 129/92
[2020-03-24] MEDS: ATORVASTATIN 20 MG TAB PO SCH (21:08)
[2020-03-24 22:00] VITALS: BP 125/73
[2020-03-25 05:00] VITALS: BP 127/62
[2020-03-25] MEDS: FUROSEMIDE 20 MG/2 ML VIAL IV SCH ×2 (06:37→18:13)
[2020-03-25] MEDS: CLINDAMYCIN 600MG IV 50 ML IV SCH ×3 (06:38→21:45)
[2020-03-25 09:00] VITALS: BP 125/75
[2020-03-25] MEDS: ASPirin 81 mg TAB PO SCH (09:57)
[2020-03-25] MEDS: cefTRIAXone 1GM/50ML D5W 50 ML IV SCH (09:57)
[2020-03-25] MEDS: ENOXAPARIN SOD 40 MG/0.4 ML SYRINGE SC SCH (09:58)
[2020-03-25 13:00] VITALS: BP 116/65
[2020-03-25 17:00] VITALS: BP 129/77
[2020-03-25] MEDS: ATORVASTATIN 20 MG TAB PO SCH (21:45)
[2020-03-25 22:00] VITALS: BP 113/65
[2020-03-26 05:00] VITALS: BP 99/59
[2020-03-26] MEDS: FUROSEMIDE 20 MG/2 ML VIAL IV SCH ×2 (06:28→18:00)
[2020-03-26] MEDS: CLINDAMYCIN 600MG IV 50 ML IV SCH ×2 (06:28→14:00)
[2020-03-26 08:13] LABS: Basophils # (auto) 0 10 ^3/uL (0-0.2); Basophils % (auto) 0.3 % (0.0-2.0); Eosinophils # (auto) 0.1 10 ^3/uL (0-0.8); Eosinophils % (auto) 0.8 % (0.0-7.0); Hematocrit 44.5 % (41.0-53.0); Hemoglobin 14.5 g/dL (13.5-17.5); Lymphocytes # (auto) 3.8 10 ^3/uL (0.4-5.4); Lymphocytes % (auto) 37.9 % (10.0-50.0); Mean Corpuscular Hemoglobin 28.4 pg (28.0-32.0); Mean Corpuscular Hgb Conc. 32.6 g/dL (32.0-36.0); Mean Corpuscular Volume 86.9 fL (80.0-100.0); Monocytes # (auto) 0.6 10 ^3/uL (0-1.3); Neutrophils # (auto) 5.6 10 ^3/uL (1.6-8.6); Platelet Count (auto) 211 10^3/uL (140-450); Red Blood Cells 5.12 10^6/uL (4.5-5.90); Red Cell Distribution Width 14.5 % (11.8-14.3); White Blood Cell 10.1 10^3/uL (4.4-10.8)
[2020-03-26 09:00] VITALS: BP 111/72
[2020-03-26] MEDS: cefTRIAXone 1GM/50ML D5W 50 ML IV SCH (10:57)
[2020-03-26] MEDS: ASPirin 81 mg TAB PO SCH (10:57)
[2020-03-26] MEDS: ENOXAPARIN SOD 40 MG/0.4 ML SYRINGE SC SCH (10:57)
[2020-03-26 13:00] VITALS: BP 129/71
[2020-03-26 17:00] VITALS: BP 118/78
== END 2020-03-26 18:55 | disposition home or self-care (01) | DRG 383 ==
LOC: ER 00:57 → TELE 00:58 → TELE-WESTW 16:44
PROVIDERS: ADMIT Hospitalist; ATTEND Internal Medicine
DX: L03.115 Cellulitis of right lower limb (principal); I89.0 Lymphedema, not elsewhere classified; I87.2 Venous insufficiency (chronic) (peripheral); D72.829 Elevated white blood cell count, unspecified; E78.5 Hyperlipidemia, unspecified; I87.8 Other specified disorders of veins; Z82.49 Family history of ischemic heart disease and other diseases of the circulatory system
CPT/HCPCS: 36415; 75635; 80053; 80061; 80307; 81001; 83036; 84484; 85025; 85652; 87040; 87081; 87086; 93970; G0378; J0696; J2405; J3490

== ENCOUNTER 2020-05-01 00:14 | Inpatient (IN) | payer MEDICAID ==
[~2020-05-01] VITALS: Ht 180.3 cm; Wt 158.0 kg
[~2020-05-01 00:14] MED LIST changes: -CEPH250C PO; -CLIN300C8 PO; +METR500T PO; -SACC250C PO
[2020-05-01] MEDS ORDERED: HYDROmorphone HCL 2 MG/ML VL IV ONE (00:30)
[2020-05-01] MEDS ORDERED: ONDANSETRON HCL 4 MG/2 ML VIAL IV ONE (00:30)
[2020-05-01] MEDS ORDERED: MORPHINE SULFATE 4 MG/ML SYR/VIAL IV PRN (04:00)
[2020-05-01] MEDS ORDERED: HYDROcodone-ACET 5/325MG TAB PO PRN (04:00)
[2020-05-01] MEDS ORDERED: ONDANSETRON HCL 4 MG/2 ML VIAL IV PRN (04:00)
[2020-05-01] MEDS ORDERED: DOCUSATE SOD 100 MG CAP PO PRN (04:00)
[2020-05-01] MEDS ORDERED: NITROGLYCERIN 0.4 MG SL TAB SL PRN (04:00)
[2020-05-01] MEDS ORDERED: MORPHINE SULF INJ 2 MG/ML SYRINGE 1ML IV PRN (04:00)
[2020-05-01] MEDS ORDERED: ACETAMINOPHEN 325 MG TAB PO PRN (04:00)
[2020-05-01 06:27] LABS: Basophils # (auto) 0 10 ^3/uL (0-0.2); Basophils % (auto) 0.2 % (0.0-2.0); Eosinophils # (auto) 0 10 ^3/uL (0-0.8); Eosinophils % (auto) 0.1 % (0.0-7.0); Hematocrit 36.6 % (41.0-53.0); Hemoglobin 12.2 g/dL (13.5-17.5); Lymphocytes # (auto) 1.9 10 ^3/uL (0.4-5.4); Lymphocytes % (auto) 15.3 % (10.0-50.0); Mean Corpuscular Hemoglobin 28.9 pg (28.0-32.0); Mean Corpuscular Hgb Conc. 33.4 g/dL (32.0-36.0); Mean Corpuscular Volume 86.6 fL (80.0-100.0); Monocytes # (auto) 0.7 10 ^3/uL (0-1.3); Monocytes % (auto) 5.8 % (0.0-12.0); Neutrophils # (auto) 9.7 10 ^3/uL (1.6-8.6); Neutrophils % (auto) 78.6 % (37.0-80.0); Platelet Count (auto) 135 10^3/uL (140-450); Red Blood Cells 4.23 10^6/uL (4.5-5.90); Red Cell Distribution Width 14.9 % (11.8-14.3); White Blood Cell 12.4 10^3/uL (4.4-10.8)
[2020-05-01 06:42] LABS: Albumin 2.6 g/dL (3.4-5.0); Potassium 3.5 mmol/L (3.5-5.1)
[2020-05-01 06:48] LABS: BUN/Creatinine Ratio 10.1; Bilirubin, Total 0.5 mg/dL (0.2-1.0)
[2020-05-01] MEDS: PIPERACILLIN-TAZOB 3.375GM 100 ML IV SCH ×3 (08:39→21:58)
[2020-05-01] MEDS: ZINC SULFATE 220mg CAP or TAB PO SCH (10:06)
[2020-05-01] MEDS: ASCORBIC ACID 500 MG TAB PO SCH ×2 (10:06→21:58)
[2020-05-01] MEDS: ENOXAPARIN SOD 40 MG/0.4 ML SYRINGE SC SCH (10:06)
[2020-05-01] MEDS: PANTOPRAZOLE 40 MG/10 ML VIAL INJ IV SCH (10:06)
[2020-05-01] MEDS: MULTIPLE VITAMIN TAB PO SCH (10:06)
[2020-05-01] MEDS: D5W/SOD CHL 0.45% 1,000 ML IV SCH ×2 (17:20→18:50)
--- NOTE | 2020-05-02 02:53 | NUR ---
ADMIT TO TELE FROM ER TRINITYMOIRA admitted to Telemetry unit after SBAR received form Kathy LAL . Patient oriented to LAZARO BURTON RN primary RN, unit, room, bed, and unit policies regarding patient care and visiting hours. Patient now on continuous telemetry monitoring, tele box #58 and telemetry reading on arrival to unit is SR @99. Patient on RA with no S/S of distress or SOB noted at this time, patient weighed by bedscale and encouraged to call if they need something. POC discussed with patient all questions answered, patient verbalized understanding. Call light within reach. Will continue to monitor PRN/Q1hr.
[2020-05-02 03:31] VITALS: BP 117/56
[2020-05-02 05:00] VITALS: BP 117/56
[2020-05-02] MEDS: PIPERACILLIN-TAZOB 3.375GM 100 ML IV SCH ×2 (05:39→14:10)
[2020-05-02] MEDS: D5W/SOD CHL 0.45% 1,000 ML IV SCH ×2 (06:39→22:37)
--- NOTE | 2020-05-02 07:43 | NUR ---
CARE ENDORSED TO DAY SHIFT RN
[2020-05-02 08:54] VITALS: BP 91/58
[2020-05-02] MEDS ORDERED: cefTRIAXone 1GM/50ML D5W 50 ML IV SCH (09:00)
[2020-05-02] MEDS ORDERED: VANCOMYCIN PER PHARMACY 0 MG IV SCH (09:15)
[2020-05-02] MEDS: ENOXAPARIN SOD 40 MG/0.4 ML SYRINGE SC SCH (09:34)
[2020-05-02] MEDS: PANTOPRAZOLE 40 MG/10 ML VIAL INJ IV SCH (09:34)
[2020-05-02] MEDS: MULTIPLE VITAMIN TAB PO SCH (09:34)
[2020-05-02] MEDS: ASCORBIC ACID 500 MG TAB PO SCH ×2 (09:34→22:37)
[2020-05-02] MEDS: ZINC SULFATE 220mg CAP or TAB PO SCH (09:35)
[2020-05-02] MEDS ORDERED: VANCOMYCIN 1GM/250ML 250 ML IV ONE (10:00)
[2020-05-02 12:01] LABS: Basophils # (auto) 0 10 ^3/uL (0-0.2); Eosinophils # (auto) 0 10 ^3/uL (0-0.8); Eosinophils % (auto) 0.3 % (0.0-7.0); Hematocrit 39.2 % (41.0-53.0); Hemoglobin 13.5 g/dL (13.5-17.5); Lymphocytes % (auto) 20.8 % (10.0-50.0); Mean Corpuscular Hemoglobin 29.6 pg (28.0-32.0); Mean Corpuscular Hgb Conc. 34.3 g/dL (32.0-36.0); Mean Corpuscular Volume 86.3 fL (80.0-100.0); Monocytes # (auto) 0.7 10 ^3/uL (0-1.3); Monocytes % (auto) 6.9 % (0.0-12.0); Nucleated Red Blood Cells % 0.1 %; Platelet Count (auto) 165 10^3/uL (140-450); Red Blood Cells 4.54 10^6/uL (4.5-5.90); Red Cell Distribution Width 15.1 % (11.8-14.3); White Blood Cell 9.7 10^3/uL (4.4-10.8)
[2020-05-02 13:00] VITALS: BP 110/67
[2020-05-02 17:00] VITALS: BP 105/62
--- NOTE | 2020-05-02 19:10 | NUR ---
OPENING NOTE- NOC SHIFT ASSUMED PATIENT CARE, RECEIVED REPORT FROM DAY SHIFT NURSE FLIP LAL. PATIENT IS COMFORTABLE IN BED. NO S/SX OF DISTRESS, SOB OR PAIN. PATIENT IS IN BED TALKING ON HIS PERSONAL PHONE. BED IS LOCKED AT LOWEST POSITION, BED RAILS UP X2. PATIENT DOES NOT HAVE IV ACCESS AT THIS TIME; WILL ATTEMPT IV INSERTION. DISCUSSED POC WITH PATIENT AND INSTRUCTED PATIENT TO CALL PRN; PATIENT VERBALIZED UNDERSTANDING.
[2020-05-02] MEDS ORDERED: VANCOMYCIN 1GM/250ML 250 ML IV SCH ×2 (20:00→21:45)
--- NOTE | 2020-05-02 20:00 | NUR ---
VANCOMYCIN NOT ADMINISTERED AT THIS SCHEDULED TIME. MADE PHARMACIST AWARE THAT VANCOMYCIN WILL NOT START AT THIS TIME BECAUSE PATIENT DOES NOT HAVE IV ACCESS. PHARMACIST RESCHEDULED VANCOMYCIN FOR 05/03/20 0000 AND RESCHEDULED BLOOD DRAW FOR TROUGH.
--- NOTE | 2020-05-02 23:00 | NUR ---
IV insertion IV access obtained, via clean sterile technique by inserting 22 gauge catheter at RIGHT FOREARM after 1 attempt(s). IV secured properly. No trauma to site. Patient tolerated well.
[2020-05-03 00:25] VITALS: BP 137/69
[2020-05-03] MEDS: VANCOMYCIN 1GM/250ML 250 ML IV SCH ×3 (01:14→16:36)
--- NOTE | 2020-05-03 02:05 | NUR ---
ROUNDS PATIENT IS COMFORTABLE IN BED, RESTING EYES CLOSED. CHEST RISE AND FALL IS EVEN, BREATHS ARE UNLABORED. WILL CONTINUE TO MONITOR Q1H AND PRN.
[2020-05-03] MEDS: PIPERACILLIN-TAZOB 3.375GM 100 ML IV SCH ×3 (03:16→19:52)
[2020-05-03 06:08] VITALS: BP 104/55
--- NOTE | 2020-05-03 07:20 | NUR ---
CLOSING NOTE- NOC SHIFT ENDORSED PATIENT CARE TO DAY SHIFT NURSE. PATIENT IS COMFORTABLE IN BED. NO S/SX OF DISTRESS, SOB OR PAIN.
[2020-05-03 07:32] LABS: Basophils # (auto) 0 10 ^3/uL (0-0.2); Basophils % (auto) 0.3 % (0.0-2.0); Eosinophils # (auto) 0.1 10 ^3/uL (0-0.8); Hematocrit 35.7 % (41.0-53.0); Hemoglobin 12.2 g/dL (13.5-17.5); Lymphocytes # (auto) 1.8 10 ^3/uL (0.4-5.4); Lymphocytes % (auto) 22.5 % (10.0-50.0); Mean Corpuscular Hemoglobin 29.4 pg (28.0-32.0); Mean Corpuscular Hgb Conc. 34.2 g/dL (32.0-36.0); Mean Corpuscular Volume 86.1 fL (80.0-100.0); Monocytes # (auto) 0.7 10 ^3/uL (0-1.3); Monocytes % (auto) 8.9 % (0.0-12.0); Neutrophils # (auto) 5.3 10 ^3/uL (1.6-8.6); Neutrophils % (auto) 67.3 % (37.0-80.0); Nucleated Red Blood Cells % 0.1 %; Platelet Count (auto) 184 10^3/uL (140-450); Red Blood Cells 4.15 10^6/uL (4.5-5.90); Red Cell Distribution Width 15.2 % (11.8-14.3); White Blood Cell 7.9 10^3/uL (4.4-10.8)
[2020-05-03 07:47] LABS: Potassium 3.4 mmol/L (3.5-5.1)
[2020-05-03 07:54] LABS: Albumin 2.5 g/dL (3.4-5.0); BUN/Creatinine Ratio 8.8; Bilirubin, Total 0.5 mg/dL (0.2-1.0); Calcium 8.1 mg/dL (8.5-10.1); Total Protein 7.3 g/dL (6.4-8.2)
[2020-05-03 09:00] VITALS: BP 111/62
[2020-05-03] MEDS: D5W/SOD CHL 0.45% 1,000 ML IV SCH ×2 (09:20→22:01)
[2020-05-03] MEDS: MULTIPLE VITAMIN TAB PO SCH (10:10)
[2020-05-03] MEDS: ASCORBIC ACID 500 MG TAB PO SCH ×2 (10:10→22:01)
[2020-05-03] MEDS: ZINC SULFATE 220mg CAP or TAB PO SCH (10:10)
[2020-05-03] MEDS: ENOXAPARIN SOD 40 MG/0.4 ML SYRINGE SC SCH (10:10)
[2020-05-03] MEDS: PANTOPRAZOLE 40 MG/10 ML VIAL INJ IV SCH (10:10)
[2020-05-03] MEDS ORDERED: POTASSIUM CHL 20 Meq TABLET PO ONE (10:15)
--- NOTE | 2020-05-03 12:25 | NUR ---
Pt is an alert and oriented male that is able to make needs known. Pt resides with his girlfriend and functioned independently prior to admission. Presently pt is able to ambulate and communicate. Pt will return home upon discharge and has transportation through his family. Provided pt with information on advance directives who verbalized understanding. Will continue to monitor and provide intervention as appropriate. Addendum: 05/03/20 at 1233 by MARTHA ASTUDILLO Amended: Links added.
[2020-05-03 13:00] VITALS: BP 125/76
[2020-05-03 17:00] VITALS: BP 107/69
[2020-05-03 21:43] VITALS: BP 117/64
[2020-05-04] MEDS: VANCOMYCIN 1GM/250ML 250 ML IV SCH ×2 (00:13→09:10)
[2020-05-04] MEDS: PIPERACILLIN-TAZOB 3.375GM 100 ML IV SCH ×2 (04:12→11:00)
[2020-05-04 04:37] VITALS: BP 104/56
[2020-05-04 07:32] LABS: Basophils # (auto) 0 10 ^3/uL (0-0.2); Basophils % (auto) 0.2 % (0.0-2.0); Eosinophils # (auto) 0.1 10 ^3/uL (0-0.8); Eosinophils % (auto) 1.3 % (0.0-7.0); Hematocrit 36.2 % (41.0-53.0); Hemoglobin 12.1 g/dL (13.5-17.5); Lymphocytes # (auto) 1.8 10 ^3/uL (0.4-5.4); Lymphocytes % (auto) 21.6 % (10.0-50.0); Mean Corpuscular Hemoglobin 28.9 pg (28.0-32.0); Mean Corpuscular Hgb Conc. 33.4 g/dL (32.0-36.0); Mean Corpuscular Volume 86.4 fL (80.0-100.0); Monocytes # (auto) 0.6 10 ^3/uL (0-1.3); Monocytes % (auto) 7.2 % (0.0-12.0); Neutrophils # (auto) 5.9 10 ^3/uL (1.6-8.6); Neutrophils % (auto) 69.7 % (37.0-80.0); Platelet Count (auto) 224 10^3/uL (140-450); Red Cell Distribution Width 15.1 % (11.8-14.3); White Blood Cell 8.4 10^3/uL (4.4-10.8)
[2020-05-04 07:51] LABS: BUN/Creatinine Ratio 8.2; Calcium 8.2 mg/dL (8.5-10.1); Potassium 3.6 mmol/L (3.5-5.1)
--- NOTE | 2020-05-04 08:00 | NUR ---
Opening Note Assumed care of patient, he is A & O x4, no s/s of distress. POC discussed. Patient c/o IV to the right forearm leaking. IV discontinued. Will continue to monitor.
[2020-05-04 09:00] VITALS: BP 113/68
[2020-05-04] MEDS: MULTIPLE VITAMIN TAB PO SCH (09:11)
[2020-05-04] MEDS: ENOXAPARIN SOD 40 MG/0.4 ML SYRINGE SC SCH (09:11)
[2020-05-04] MEDS: PANTOPRAZOLE 40 MG/10 ML VIAL INJ IV SCH (09:11)
[2020-05-04] MEDS: ASCORBIC ACID 500 MG TAB PO SCH (09:11)
[2020-05-04] MEDS: ZINC SULFATE 220mg CAP or TAB PO SCH (09:12)
--- NOTE | 2020-05-04 10:00 | NUR ---
Dr. Barrera at bedside. Patient to be discharged after Vancomycin is completed.
[2020-05-04] MEDS: D5W/SOD CHL 0.45% 1,000 ML IV SCH (12:00)
--- NOTE | 2020-05-04 13:30 | NUR ---
Patient waiting for ride.
--- NOTE | 2020-05-04 14:51 | NUR ---
Discharge instructions given as ordered. Encourage to follow up with PMD as instructed. All questions and concerns addressed. Patient verbalized understanding. Medication reconciliation form completed and copy given to patient. IV removed with catheter intact, pressure dressing applied. Telemetry unit returned to ICU. Patient taken to vehicle via wheelchair with all personal belongings, accompanied by staff. No distress noted at time of departure.
== END 2020-05-04 14:51 | disposition home or self-care (01) | DRG 383 ==
LOC: ER 00:14 → EDBD 00:14 → TELE 00:15 → TELE-WESTW 05-02 02:53
PROVIDERS: ADMIT Nurse Practitioner Family; ATTEND Internal Medicine
DX: L03.115 Cellulitis of right lower limb (principal); E44.0 Moderate protein-calorie malnutrition; E66.9 Obesity, unspecified; Z20.828 Contact with and (suspected) exposure to other viral communicable diseases; Z83.3 Family history of diabetes mellitus; Z68.42 Body mass index [BMI] 45.0-49.9, adult; Z82.49 Family history of ischemic heart disease and other diseases of the circulatory system; Q82.0 Hereditary lymphedema; E88.09 Other disorders of plasma-protein metabolism, not elsewhere classified
CPT/HCPCS: 36415; 80048; 80053; 80202; 82565; 85025; 87040; 87081; 87426; 96365; 96372; 96375; C9113; G0378; J2405; J2543

== ENCOUNTER 2020-08-04 08:05 | Emergency (ER) | payer OTHER, MEDICAID ==
[~2020-08-04] VITALS: Ht 180.3 cm; Wt 154.2 kg
[2020-08-04] MEDS ORDERED: cefTRIAXone W LIDOCAINE 1 GM IM IM ONE (08:30)
[2020-08-04] MEDS ORDERED: HYDROcodone-ACET 10/325MG TAB PO ONE (08:30)
[2020-08-04] MEDS ORDERED: CLINDAMYCIN 600 MG/4 ML VL IM ONE (08:30)
[2020-08-04 08:48] LABS: Basophils # (auto) 0 10 ^3/uL (0-0.2); Basophils % (auto) 0.2 % (0.0-2.0); Eosinophils # (auto) 0 10 ^3/uL (0-0.8); Eosinophils % (auto) 0.3 % (0.0-7.0); Hematocrit 47.3 % (41.0-53.0); Hemoglobin 15.9 g/dL (13.5-17.5); Mean Corpuscular Hemoglobin 29.5 pg (28.0-32.0); Mean Corpuscular Hgb Conc. 33.5 g/dL (32.0-36.0); Mean Corpuscular Volume 88.2 fL (80.0-100.0); Monocytes # (auto) 0.4 10 ^3/uL (0-1.3); Monocytes % (auto) 2.9 % (0.0-12.0); Neutrophils # (auto) 10.2 10 ^3/uL (1.6-8.6); Neutrophils % (auto) 74.6 % (37.0-80.0); Nucleated Red Blood Cells % 0.1 %; Red Blood Cells 5.37 10^6/uL (4.5-5.90); White Blood Cell 13.7 10^3/uL (4.4-10.8)
[2020-08-04] MEDS ORDERED: cefTRIAXone 1GM/50ML D5W 50 ML IV ONE (09:00)
[2020-08-04] MEDS ORDERED: CLINDAMYCIN 300MG IV 50 ML IV ONE (09:00)
[2020-08-04] MEDS ORDERED: cefTRIAXone SOD 1,000 MG VL ONE (09:01)
[2020-08-04 09:18] LABS: Albumin 3.6 g/dL (3.4-5.0); Calcium 9.2 mg/dL (8.5-10.1); Potassium 4.4 mmol/L (3.5-5.1)
[2020-08-04 09:24] LABS: Bilirubin, Total 0.4 mg/dL (0.2-1.0); Total Protein 8.5 g/dL (6.4-8.2)
[2020-08-04 10:00] VITALS: BP 98/40
[2020-08-04 10:51] LABS: BUN/Creatinine Ratio 12.2
== END 2020-08-04 11:30 | disposition home or self-care (01) ==
LOC: ER 08:05
DX: L03.115 Cellulitis of right lower limb (principal); I89.0 Lymphedema, not elsewhere classified
CPT/HCPCS: 36415; 71045; 80053; 85025; 96365; 96366; 96368; 99284; J0696; J3490

== ENCOUNTER 2020-09-26 11:34 | Emergency (ER) | payer OTHER, MEDICAID ==
[~2020-09-26] VITALS: Ht 180.3 cm; Wt 152.9 kg
[2020-09-26 11:34] VITALS: BP 118/70
== END 2020-09-26 14:21 | disposition home or self-care (01) ==
LOC: ER 11:34
DX: S16.1XXA Strain of muscle, fascia and tendon at neck level, initial encounter (principal); R60.0 Localized edema; Z98.890 Other specified postprocedural states; X58.XXXA Exposure to other specified factors, initial encounter; Y93.89 Activity, other specified; Y92.89 Other specified places as the place of occurrence of the external cause; Y99.8 Other external cause status
CPT/HCPCS: 72040

== ENCOUNTER 2020-09-28 19:25 | Inpatient (IN) | payer OTHER, MEDICAID ==
[~2020-09-28] VITALS: Ht 177.8 cm; Wt 173.9 kg
[2020-09-28] MEDS ORDERED: SODIUM CHLORIDE 0.9% 1,000 ML IV ONE (20:00)
[2020-09-28 20:22] LABS: Basophils # (auto) 0 10 ^3/uL (0-0.2); Basophils % (auto) 0.2 % (0.0-2.0); Eosinophils # (auto) 0 10 ^3/uL (0-0.8); Eosinophils % (auto) 0.1 % (0.0-7.0); Hematocrit 44.7 % (41.0-53.0); Hemoglobin 15.1 g/dL (13.5-17.5); Lymphocytes # (auto) 1.1 10 ^3/uL (0.4-5.4); Lymphocytes % (auto) 9.9 % (10.0-50.0); Mean Corpuscular Hemoglobin 29.5 pg (28.0-32.0); Mean Corpuscular Hgb Conc. 33.9 g/dL (32.0-36.0); Mean Corpuscular Volume 87.1 fL (80.0-100.0); Monocytes # (auto) 0.1 10 ^3/uL (0-1.3); Monocytes % (auto) 1.2 % (0.0-12.0); Neutrophils # (auto) 10.1 10 ^3/uL (1.6-8.6); Neutrophils % (auto) 88.6 % (37.0-80.0); Platelet Count (auto) 152 10^3/uL (140-450); Red Blood Cells 5.13 10^6/uL (4.5-5.90); Red Cell Distribution Width 15.2 % (11.8-14.3); White Blood Cell 11.4 10^3/uL (4.4-10.8)
[2020-09-28 20:35] LABS: Albumin 3.6 g/dL (3.4-5.0); Calcium 8.9 mg/dL (8.5-10.1); Magnesium 2.3 mg/dL (1.6-2.6); Potassium 4.3 mmol/L (3.5-5.1)
[2020-09-28 20:39] LABS: Lactic Acid w/Reflex 2.7 mmol/L (0.4-2.0)
[2020-09-28 20:43] LABS: BUN/Creatinine Ratio 11.1; Bilirubin, Total 0.6 mg/dL (0.2-1.0); CRP High Sensitivity 2.6 mg/dL (< 0.3); Total Protein 8.6 g/dL (6.4-8.2)
[2020-09-28] MEDS ORDERED: HYDROmorphone HCL 2 MG/ML VL IV ONE (20:45)
[2020-09-28] MEDS ORDERED: KETOROLAC TROMETH 30 MG/ML 1ML VIAL IV ONE (20:45)
[2020-09-28] MEDS ORDERED: ONDANSETRON HCL 4 MG/2 ML VIAL IV ONE (20:45)
[2020-09-28] MEDS ORDERED: ACETAMINOPHEN 500 MG TAB PO ONE (20:45)
[2020-09-28] MEDS ORDERED: VANCOMYCIN 1GM/250ML 250 ML IV ONE (21:00)
[2020-09-29] MEDS ORDERED: ONDANSETRON HCL 4 MG/2 ML VIAL IV PRN (03:00)
[2020-09-29] MEDS ORDERED: NITROGLYCERIN 0.4 MG SL TAB SL PRN (03:00)
[2020-09-29] MEDS: SODIUM CHLORIDE 0.9% 1,000 ML IV SCH ×3 (03:00→20:32)
[2020-09-29 05:35] VITALS: BP 110/66
[2020-09-29] MEDS: levoFLOXacin 500MG 100 ML IV SCH (05:40)
[2020-09-29] MEDS: CLINDAMYCIN 900MG IV 50 ML IV SCH ×3 (05:41→21:22)
[2020-09-29] MEDS ORDERED: CLIN300C2 PO (07:15)
[2020-09-29] MEDS ORDERED: NAPR500T31 PO (07:15)
[2020-09-29 08:00] VITALS: BP 100/49
[2020-09-29 08:24] LABS: Basophils # (auto) 0 10 ^3/uL (0-0.2); Eosinophils # (auto) 0 10 ^3/uL (0-0.8); Eosinophils % (auto) 0.1 % (0.0-7.0); Hematocrit 41.7 % (41.0-53.0); Hemoglobin 13.6 g/dL (13.5-17.5); Lymphocytes # (auto) 1.8 10 ^3/uL (0.4-5.4); Lymphocytes % (auto) 11.9 % (10.0-50.0); Mean Corpuscular Hemoglobin 28.6 pg (28.0-32.0); Mean Corpuscular Hgb Conc. 32.6 g/dL (32.0-36.0); Mean Corpuscular Volume 87.6 fL (80.0-100.0); Monocytes # (auto) 0.3 10 ^3/uL (0-1.3); Monocytes % (auto) 2.3 % (0.0-12.0); Neutrophils # (auto) 12.8 10 ^3/uL (1.6-8.6); Neutrophils % (auto) 85.7 % (37.0-80.0); Nucleated Red Blood Cells % 0.1 %; Platelet Count (auto) 142 10^3/uL (140-450); Red Blood Cells 4.76 10^6/uL (4.5-5.90); Red Cell Distribution Width 15.4 % (11.8-14.3); White Blood Cell 14.9 10^3/uL (4.4-10.8)
[2020-09-29 08:41] LABS: BUN/Creatinine Ratio 13.8; Calcium 8.2 mg/dL (8.5-10.1); Potassium 3.7 mmol/L (3.5-5.1)
[2020-09-29] MEDS: ENOXAPARIN SOD 40 MG/0.4 ML SYRINGE SC SCH (09:18)
[2020-09-29 09:19] VITALS: BP 100/48
[2020-09-29 13:12] VITALS: BP 110/56
[2020-09-29 13:34] LABS: Urine Bacteria NONE SEEN /hpf (None Seen); Urine Blood Negative /uL (Negative); Urine Mucus FEW (None Seen); Urine Specific Gravity 1.035 (1.001-1.035); Urine WBC 2 /hpf (0 - 3)
[2020-09-29 16:23] VITALS: BP 121/57
[2020-09-29] MEDS: HYDROcodone-ACET 5/325MG TAB PO PRN (21:30)
[2020-09-29 22:00] VITALS: BP 109/64
[2020-09-30] MEDS: SODIUM CHLORIDE 0.9% 1,000 ML IV SCH ×3 (04:11→20:40)
[2020-09-30] MEDS: CLINDAMYCIN 900MG IV 50 ML IV SCH ×3 (05:16→21:55)
[2020-09-30 05:23] VITALS: BP 100/62
[2020-09-30 07:04] LABS: Basophils # (auto) 0 10 ^3/uL (0-0.2); Basophils % (auto) 0.2 % (0.0-2.0); Eosinophils # (auto) 0 10 ^3/uL (0-0.8); Eosinophils % (auto) 0.3 % (0.0-7.0); Hematocrit 35.3 % (41.0-53.0); Hemoglobin 11.9 g/dL (13.5-17.5); Lymphocytes # (auto) 2.2 10 ^3/uL (0.4-5.4); Lymphocytes % (auto) 15.6 % (10.0-50.0); Mean Corpuscular Hemoglobin 29.1 pg (28.0-32.0); Mean Corpuscular Hgb Conc. 33.9 g/dL (32.0-36.0); Monocytes # (auto) 0.6 10 ^3/uL (0-1.3); Monocytes % (auto) 4.3 % (0.0-12.0); Neutrophils # (auto) 11.2 10 ^3/uL (1.6-8.6); Neutrophils % (auto) 79.6 % (37.0-80.0); Platelet Count (auto) 138 10^3/uL (140-450); Red Cell Distribution Width 14.8 % (11.8-14.3); White Blood Cell 14.1 10^3/uL (4.4-10.8)
[2020-09-30 07:22] LABS: Albumin 2.4 g/dL (3.4-5.0); Calcium 7.9 mg/dL (8.5-10.1); Potassium 3.7 mmol/L (3.5-5.1)
[2020-09-30 07:26] LABS: BUN/Creatinine Ratio 14.3; Bilirubin, Total 0.7 mg/dL (0.2-1.0); Total Protein 6.7 g/dL (6.4-8.2)
[2020-09-30 08:00] VITALS: BP 105/59
[2020-09-30 08:59] VITALS: BP 105/59
[2020-09-30] MEDS: levoFLOXacin 500MG 100 ML IV SCH (10:03)
[2020-09-30] MEDS: ENOXAPARIN SOD 40 MG/0.4 ML SYRINGE SC SCH (10:03)
[2020-09-30 12:50] VITALS: BP 106/60
[2020-09-30 16:37] VITALS: BP 129/74
[2020-09-30] MEDS: HYDROcodone-ACET 5/325MG TAB PO PRN (19:52)
[2020-09-30 22:15] VITALS: BP 107/60
[2020-10-01 05:00] VITALS: BP 107/64
[2020-10-01] MEDS: SODIUM CHLORIDE 0.9% 1,000 ML IV SCH ×2 (05:00→13:20)
[2020-10-01 05:20] LABS: Basophils # (auto) 0 10 ^3/uL (0-0.2); Basophils % (auto) 0.1 % (0.0-2.0); Eosinophils # (auto) 0.1 10 ^3/uL (0-0.8); Eosinophils % (auto) 0.8 % (0.0-7.0); Hemoglobin 12.6 g/dL (13.5-17.5); Lymphocytes # (auto) 2.2 10 ^3/uL (0.4-5.4); Lymphocytes % (auto) 21.9 % (10.0-50.0); Mean Corpuscular Hemoglobin 29.5 pg (28.0-32.0); Mean Corpuscular Hgb Conc. 34.1 g/dL (32.0-36.0); Mean Corpuscular Volume 86.3 fL (80.0-100.0); Monocytes # (auto) 0.5 10 ^3/uL (0-1.3); Monocytes % (auto) 5.2 % (0.0-12.0); Neutrophils # (auto) 7.2 10 ^3/uL (1.6-8.6); Nucleated Red Blood Cells % 0.1 %; Platelet Count (auto) 141 10^3/uL (140-450); Red Blood Cells 4.28 10^6/uL (4.5-5.90); Red Cell Distribution Width 15.2 % (11.8-14.3)
[2020-10-01 05:32] LABS: Albumin 2.3 g/dL (3.4-5.0); Calcium 7.9 mg/dL (8.5-10.1); Potassium 3.6 mmol/L (3.5-5.1)
[2020-10-01 05:38] LABS: BUN/Creatinine Ratio 14.1; Bilirubin, Total 0.2 mg/dL (0.2-1.0); Total Protein 6.9 g/dL (6.4-8.2)
[2020-10-01] MEDS: CLINDAMYCIN 900MG IV 50 ML IV SCH ×2 (05:47→13:45)
[2020-10-01] MEDS ORDERED: CALCIUM CARB 500 MG CHEW TAB PO ONE (06:45)
[2020-10-01 09:00] VITALS: BP 108/67
[2020-10-01] MEDS: levoFLOXacin 500MG 100 ML IV SCH (09:52)
[2020-10-01] MEDS: ENOXAPARIN SOD 40 MG/0.4 ML SYRINGE SC SCH (09:53)
[2020-10-01] MEDS ORDERED: LEVO500T31 PO (12:55)
[2020-10-01 13:00] VITALS: BP 115/67
[2020-10-01] MEDS ORDERED: CLINDAMYCIN HCL 150 MG CAP PO SCH (13:21)
[2020-10-01] MEDS ORDERED: CLIN300C8 PO (13:22)
[2020-10-01 15:35] VITALS: BP 115/67
[2020-10-01 17:00] VITALS: BP 106/68
== END 2020-10-01 17:05 | disposition home or self-care (01) | DRG 603 ==
LOC: EDUNIT# 19:25 → EDBD 19:25 → ER 19:25 → TELE 09-29 02:47 → INTOOBSV 09-29 02:47 → OBSVTOIN 09-29 02:47 → TELE-WESTW 09-29 05:32
PROVIDERS: ADMIT Hospitalist; ATTEND Hospitalist
DX: L03.115 Cellulitis of right lower limb (principal); I89.0 Lymphedema, not elsewhere classified; Z82.49 Family history of ischemic heart disease and other diseases of the circulatory system; Z20.822 Contact with and (suspected) exposure to COVID-19
CPT/HCPCS: 36415; 80048; 80053; 81001; 83605; 83735; 85025; 85652; 86141; 87040; 87426; 96361; 96365; 96375; G0378; J1885; J1956; J2405; J3490

== ENCOUNTER 2023-10-27 21:19 | Emergency (ER) | payer BC, MEDICAID ==
[~2023-10-27] VITALS: Ht 180.3 cm; Wt 130.0 kg
[~2023-10-27 21:19] MED LIST changes: +CLIN1CAP70 PO; +LEVO500T31 PO; -METR500T PO; +NAPR-746 PO
[2023-10-27 22:34] VITALS: BP 118/74; PULSE 78; RESP 16; TEMP 98.6; O2SAT 99
== END 2023-10-27 22:33 | disposition home or self-care (01) ==
LOC: ER 21:19 → EDBD 21:19 → ER 22:33
DX: I89.0 Lymphedema, not elsewhere classified (principal); Z79.2 Long term (current) use of antibiotics; Z79.899 Other long term (current) drug therapy

== ENCOUNTER 2024-04-22 13:01 | Emergency (ER) | payer BC, MEDICAID ==
[~2024-04-22] VITALS: Ht 180.3 cm; Wt 148.5 kg
[2024-04-22 13:28] VITALS: BP 135/83; PULSE 92; RESP 18; TEMP 99; O2SAT 97
[2024-04-22] MEDS: PROMETHAZINE W/CODEINE 5 ML ORAL SYRUP PO ONE (14:00)
--- NOTE | 2024-04-22 14:25 | DVH ---
XY CHEST TWO VIEWS ROUTINE CLINICAL HISTORY: cough COMPARISON: None TECHNIQUE: Frontal and lateral view of the chest was obtained FINDINGS: Lines and Tubes: None Lungs: No focal consolidation. Pleura: No effusion. No pneumothorax. Cardiomediastinal contours: Unremarkable Bones: No acute osseous abnormality. IMPRESSION: No acute cardiopulmonary disease.
[2024-04-22] MEDS ORDERED: PROM1SOL4 PO (14:35)
[2024-04-22] MEDS ORDERED: BENZ200C64 PO (14:35)
[2024-04-22] MEDS ORDERED: AUG875T PO (14:35)
--- NOTE | 2024-04-22 14:36 | ED.PDOC ---
SOB-HPI HPI Comments 34-year-old obese male with a history of lymphadenopathy presents with a chief complaint of a nonproductive cough x2 days. Unable to get adequate relief with [id number] cough medications. Denies fevers chills night sweats unintentional weight loss Denies persistent chest pain, shortness of breath, leg swelling Denies history of asthma nor any breathing conditions Denies history of pneumonia Denies recent international travel Chief Complaint: Cough Time Seen by MD: 13:16 Primary Care Provider: PT UNSURE Reviewed notes: Nurses Notes, Medications, Allergies Information Source: Patient Mode of Arrival: Ambulatory Past Medical History Surgical History: Denies all surgeries Family History Family History: Family hx of heart sherley, Family hx of HTN Social History Smoker: Non-Smoker Alcohol: Rarely Drugs: Denies Drug Use Lives In: Home All Other Systems: Reviewed and Negative (Per HPI) Physical Exam General Appearance: No Apparent Distress, Normal HEENT: Normal ENT Inspection, Pharynx Normal, TMs Normal Neck: Full Range of Motion, Non-Tender, Normal, Normal Inspection Respiratory: Chest Non-Tender, Lungs Clear, No Accessory Muscle Use, No Respiratory Distress, Normal Breath Sounds Cardiovascular: No Edema, No JVD, No Murmur, No Gallop, Normal Peripheral Pulses, Regular Rate/Rhythm Breast Exam: Deferred Gastrointestinal: No Organomegaly, Non Tender, No Pulsatile Mass, Normal Bowel Sounds, Soft Genitalia: Deferred Pelvic: Deferred Rectal: Deferred Extremities: No calf tenderness, Normal capillary refill, Normal inspection, No rmal range of motion, Non-tender, No pedal edema Musculoskeletal : Apperance: Normal Neurologic: Alert, 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 Was a procedure done?: No Differential Dx Differential Diagnosis: Bronchitis X-Ray, Labs, Meds, VS Vital Signs Date Time Temp Pulse Resp B/P (MAP) Pulse Ox O2 Delivery O2 Flow Rate FiO2 04/22/24 13:28 99.0 110 18 135/83 (100) 97 99.0 04/22/24 13:28 92 18 97 Room Air 04/22/24 13:15 99.3 116 20 137/86 (103) 96 X-Ray, Labs, Meds, VS Comment Patient is stable for discharge at this time. External notes reviewed. Test results and diagnostic imaging interpreted. All diagnostic findings, discharge care, education and instructions provided Follow-up with PCP in 2 to 3 days Patient verbalized understanding and agreed to treatment plan Vital signs stable, afebrile, no acute distress noted Patient ambulatory with strong steady gait Advised to return precautions for any new or worsening symptoms, return to ER immediately for re-evaluation Patient is aware that the purpose of this visit was for an acute medical melvin rgency requiring emergent stabilization. Chronic conditions, including malignancies have not been ruled out. Patient is instructed to follow up with PCP as directed and discharge instructions for continued care and workup. If unable to arrange follow-up, patient is to return to the emergency department for reassessment. Patient (parent or legal guardian if applicable) was given verbal and written discharge instructions and acknowledges understanding. Time of 1ST Reevaluation: 14:34 Reevaluation 1ST: Improved Patient Education/Counseling: Diagnosis, Treatment Family Education/Counseling: Diagnosis, Treatment Departure 1 Departure Time of Disposition: 14:34 Impression: Primary Impression: Bronchitis Disposition: 01 HOME / SELF CARE / HOMELESS Condition: Stable e-Prescriptions Amoxicillin & Pot Clavulanate (AUGMENTIN TABLET) 875 Mg Tb 875 MG PO BID for 5 Days, #10 TAB 0 Refills Prov: SUNIL LYNNE NP 04/22/24 Promethazine-Dm (Promethazine Dm 6.25-15 mg/5Ml) 1 Avril Avril 5 ML PO TIDP PRN for 10 Days, #150 ML 0 Refills Prov: SUNIL LYNNE NP 04/22/24 Benzonatate (Benzonatate) 200 Mg Cap 1 CAP PO TID for 10 Days, #30 CAP 0 Refills Prov: SUNIL LYNNE NP 04/22/24 Discharged With: Self Critical Care Note Critical Care Time?: No Stability Stability form required: No Heart Score Heart Score: Heart Score Response (Comments) Value History N/A 0 EKG N/A 0 Age N/A 0 Risk Factors N/A 0 Troponin N/A 0 Total 0 SUNIL LYNNE NP Apr 22, 2024 14:36
== END 2024-04-22 14:51 | disposition home or self-care (01) ==
LOC: ER 13:01
DX: J40 Bronchitis, not specified as acute or chronic (principal)
CPT/HCPCS: 71046

== ENCOUNTER 2024-07-04 12:09 | Inpatient (IN) | payer BC, MEDICAID ==
[~2024-07-04] VITALS: Ht 180.3 cm; Wt 100.0 kg
[2024-07-04] VITALS (9 sets, daily range): BP systolic 0–102; BP diastolic 0–42; PULSE 92–150; RESP 22–38; TEMP 103.5; O2SAT 97–100
[~2024-07-04 12:09] MED LIST changes: +AUG875T PO; +BENZ200C64 PO; +PROM1SOL4 PO
--- NOTE | 2024-07-04 13:17 | ED.PDOC ---
History of Present Illness HPI Comments 34M presents to the ER w/ a prior Hx of chronic lymphedema which may be associated to bthe c/c of LE. Pt reports that he recently had Sx on the to remove excess fluid from the right LE and was not given antibiotics after. Pt notes that she has been having right leg pain, fever and gen weakness. Denies chills, N/V/D, SOB, CP. Chief Complaint: Lower Extremity Time Seen by MD: 12:45 Primary Care Provider: PT UNSURE Reviewed Notes: Nurses Notes, Movie Theater Manager Notes, Medications, Allergies Allergies: Coded Allergies: NO KNOWN ALLERGIES (Unverified , 09/26/20) Home Meds Active Scripts Amoxicillin & Pot Clavulanate (AUGMENTIN TABLET) 875 Mg Tb, 875 MG PO BID for 5 Days, #10 TAB 0 Refills Prov:SUNIL LYNNE NP 04/22/24 Promethazine-Dm (Promethazine Dm 6.25-15 mg/5Ml) 1 Avril Avril, 5 ML PO TIDP PRN for 10 Days, #150 ML 0 Refills Prov:SUNIL LYNNE NP 04/22/24 Benzonatate (Benzonatate) 200 Mg Cap, 1 CAP PO TID for 10 Days, #30 CAP 0 Refills Prov:SUNIL LYNNE NP 04/22/24 Clindamycin Hcl (Clindamycin Hcl) 300 Mg Cap, 300 MG PO Q6HR for 7 Days, #30 CAP Prov:THANG MCGINNIS MD 10/01/20 Levofloxacin (Levaquin) 500 Mg Tab, 500 MG PO DAILY for 7 Days, #7 TAB Prov:THANG MCGINNIS MD 10/01/20 Reported Medications Naproxen (Naproxen) 500 Mg Tab, 500 MG PO Q6HP, TAB 09/29/20 Information Source: Patient Mode of Arrival: EMS Severity: Moderate Timing: Days Duration: Since onset, Days Prehospital treatment: None Past Medical History Past Medical History (Other): Chronic lymphedema Surgical History: Denies all surgeries Family History Family History: Reviewed,noncontributory to illness, Unknown Social History Smoker: Non-Smoker Alcohol: Denies ETOH Use Drugs: Denies Drug Use Lives In: Home Constitutional: reports: others (right leg reevaluation); denies: chills, diaphoresis, fatigue, fever, malaise, sweats, weakness EENTM: denies: blurred vision, double vision, ear bleeding, ear discharge, ear drainage, ear pain, ear ringing, eye pain, eye redness, hearing loss, mouth pain, mouth swelling, nasal discharge, nose bleeding, nose congestion, nose pain, photophobia, tearing, throat pain, throat swelling, voice changes, others Respiratory: denies: cough, hemoptysis, orthopnea, SOB at rest, shortness of breath, SOB with excertion, stridor, wheezing, others Cardiovascular: denies: chest pain, dizzy spells, diaphoresis, Dyspnea on exertion, edema, irregular heart beat, left arm pain, lightheadedness, palpitations, PND, syncope, others Gastrointestinal: denies: abdomen distended, abdominal pain, blood streaked bowels, constipated, diarrhea, dysphagia, difficulty swallowing, hematemesis, melena, nausea, poor appetite, poor fluid intake, rectal bleeding, rectal pain, vomiting, others Genitourinary: denies: burning, dysuria, flank pain, frequency, hematuria, incontinence, penile discharge, penile sore, pain, testicle pain, testicle swelling, urgency, others Neurological: denies: dizziness, fainting, headache, left sided numbness, left sided weakness, numbness, paresthesia, pre-existing deficit, right sided numbness, right sided weakness, seizure, speech problems, tingling, tremors, weakness, others Musculoskeletal: denies: back pain, gout, joint pain, joint swelling, muscle pain, muscle stiffness, neck pain, others Integumetry: denies: bruises, change in color, change in hair/nails, dryness, laceration, lesions, lumps, rash, wounds, others Allergic/Immunocompromised: denies: Difficulty Healing, Frequent Infections, Hives, Itching, others Hematologic/Lymphatic: denies: anemia, blood clots, easy bleeding, easy bruising, swollen glands, others Endocrine: denies: excessive hunger, excessive sweating, excessive thirst, excessive urination, flushing, intolerance to cold, intolerance to heat, unexplained weight gain, unexplained weight loss, others Psychiatric: denies: anxiety, bipolar disorder, depression, hopeless, panic disorder, schizophrenia, sleepless, suicidal, others All Other Systems: Reviewed and Negative Physical Exam Exam Comments right leg has dressing w/ foul smell, chronic lymphedema w/ no obvious redness but there is tenderness in the inner thigh. pt also has a foul smell General Appearance: Moderate Distress, Normal HEENT: Normal ENT Inspection, Pharynx Normal, TMs Normal Neck: Full Range of Motion, Non-Tender, Normal, Normal Inspection Respiratory: Chest Non-Tender, Lungs Clear, No Accessory Muscle Use, No Respiratory Distress, Normal Breath Sounds Cardiovascular: No JVD, No Murmur, No Gallop, Normal Peripheral Pulses, Regular Rate/Rhythm Breast Exam: Deferred Gastrointestinal: No Organomegaly, Non Tender, No Pulsatile Mass, Normal Bowel Sounds, Soft Genitalia: Normal Pelvic: Deferred Rectal: Deferred Extremities: Swelling, Tender, Other (lymphaedema of the right leg to thigh. no crepitus. 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 Was a procedure done?: Yes Sedation Sedation?: No Central Line Recorder of insertion practice: Retirement Specialist (Dr Manning) Indication: Hypotension, CVP monitoring, Volume resuscitation, Suspected infec tion Room prepared for procedure: Yes Retirement Specialist performed hand hygien: Yes Maximal sterile barrier precau: Mask/Eye shield, Sterile gown, Cap, Sterlie gloves, Large sterlie drape Skin Preparation: Chlorhexidine gluconate Skin preparation completely dr: Yes Insertion site: Left, Internal jugular Central line catheter type: [id number] dialysis Number of lumens: 3 Central line exchanged over a: No Antiseptic ointment applied to: Yes (biopatch) Post Assessment: Chest X-Ray, No Pneumothorax Informed consent obtained: No Risks/benefits/alt described: No UTO Consent pt is intubated and critically ill Intubation Indication: Altered Mental Status, Airway Protection Prep: Preoxygenation Medicated with: Nothing Intubation Approach: Orotracheal Intubation size: cm (24) Informed consent obtained: No Risks/benefits/alt described: No UTO Consent acuity Notes pt suddenly had a seizure, then went into PEA. CPR immediately started and pt was intubated once ROSC was obtained. no complications. good color change of the CO2 detector, condensations in ET with each breath, bilatreral equal BS, no epigastric gurgling. cxr ordered. abg ordered Differential Dx Considerations may include: necrotizing fasciitis, severe sepsis, PE, AMI, electrolyte disorders, DIC X-Ray, Labs, Meds, VS Vital Signs Date Time Temp Pulse Resp B/P (MAP) Pulse Ox O2 Delivery O2 Flow Rate FiO2 07/04/24 18:07 142 25 69/39 (49) 100 100 07/04/24 17:34 65/37 07/04/24 17:01 164 Ambu-Bag 07/04/24 16:44 126 24 51/21 (31) 100 07/04/24 16:28 66/22 07/04/24 16:22 94 14 35/16 (22) 92 07/04/24 16:09 143 24 68/22 (37) 100 07/04/24 16:00 51/21 07/04/24 15:34 124 23 132/65 (87) 100 07/04/24 14:19 99/47 07/04/24 14:01 128 21 99/47 (64) 100 07/04/24 13:10 103.3 136 26 118/72 (87) 97 07/04/24 13:01 133 29 85/31 (49) 100 07/04/24 12:40 130 22 85/31 (49) 97 07/04/24 12:35 131 22 97 Nasal Cannula* 2 28 07/04/24 12:35 99.3 131 22 84/22 (42) 97 99.3 07/04/24 12:14 138 Lab Test 07/04/24 15:42 07/04/24 15:23 07/04/24 14:51 07/04/24 13:36 Range/Units POC Glucose 104 70-106 mg/dl Lactic Acid Level 1.4 2.4 *H 0.4-2.0 mmol/L Troponin I High Sensitivity 4 5 </=54 ng/L White Blood Count 10.6 4.4-10.8 10^3/uL Red Blood Count 3.65 L 4.5-5.90 10^6/uL Hemoglobin 8.7 L 13.5-17.5 g/dL Hematocrit 27.2 L 41.0-53.0 % Mean Corpuscular Volume 74.6 L 80.0-100.0 fL Mean Corpuscular Hemoglobin 23.9 L 28.0-32.0 pg Mean Corpuscular Hemoglobin Concent 32.1 32.0-36.0 g/dL Red Cell Distribution Width 19.0 H 11.8-14.3 % Platelet Count 357 140-450 10^3/uL Mean Platelet Volume 8.8 6.9-10.8 fL Neutrophils (%) (Auto) 37.0-80.0 % Lymphocytes (%) (Auto) 10.0-50.0 % Monocytes (%) (Auto) 0.0-12.0 % Basophils (%) (Auto) 0.0-2.0 % Neutrophils # (Auto) 1.6-8.6 10 ^3/uL Lymphocytes # (Auto) 0.4-5.4 10 ^3/uL Monocytes # (Auto) 0-1.3 10 ^3/uL Differential Total Cells Counted 100.0 100 Neutrophils % (Manual) 76 37.0-80.0 Band Neutrophils % (Manual) 12 Lymphocytes % (Manual) 11 10.0-50.0 Monocytes % (Manual) 1 0-12 Eosinophils % (Manual) 0 0-7 Basophils % (Manual) 0 0.0-2.0 Metamyelocytes % (manual) 0 Myelocytes % (Manual) 0 Promyelocytes % (Manual) 0 Blast Cells % (Manual) 0 Reactive Lymphocytes 0 Platelet Estimate Adequate Hypochromasia (manual) Slight Microcytosis Slight Sodium Level 140 136-145 mmol/L Potassium Level 3.6 3.5-5.1 mmol/L Chloride Level 108 H 98-107 mmol/L Carbon Dioxide Level 22 20-31 mmol/L Anion Gap 10 5-15 Blood Urea Nitrogen 10 9-23 mg/dL Creatinine 1.01 0.700-1.30 mg/dL Glomerular Filtration Rate Calc 100 >90 mL/min BUN/Creatinine Ratio 9.9 L 10.0-20.0 Serum Glucose 115 H 74-106 mg/dL Calcium Level 8.7 8.7-10.4 mg/dL Total Bilirubin 0.4 0.2-1.0 mg/dL Aspartate Amino Transferase (AST) 18 13-40 U/L Alanine Aminotransferase (ALT) 23 7-40 U/L Alkaline Phosphatase 57 46-116 U/L Total Protein 6.7 5.7-8.2 g/dL Albumin 3.6 3.2-4.8 g/dL Current Medications Medications (Trade) Dose Ordered Sig/Frandy Route Start Time Stop Time Status Last Admin Lactated Ringer's 2,350 ml @ 2,350 mls/hr ONCE ONCE IV 07/04/24 13:00 07/04/24 13:59 DC 07/04/24 14:08 Norepinephrine Bitartrate 250 ml @ 3.75 mls/hr Q24H IV 07/04/24 13:00 07/04/24 18:03 DC 07/04/24 16:28 Piperacillin Sod/ Tazobactam Sod 100 ml @ 25 mls/hr Q8HR IV 07/04/24 14:00 07/04/24 15:29 Fentanyl Citrate 25 mcg ONCE ONCE IV 07/04/24 13:00 07/04/24 13:01 DC 07/04/24 14:19 Lorazepam (Ativan Inj) 2 mg ONCE ONCE IV 07/04/24 15:45 07/04/24 15:46 DC 07/04/24 15:45 Vancomycin HCl 250 ml @ 250 mls/hr Q1H IV 07/04/24 15:45 07/04/24 17:44 DC 07/04/24 15:45 Vasopressin 20 units/Sodium Chloride 100 ml @ 9 mls/hr Q11H7M IV 07/04/24 17:15 07/04/24 17:34 Etomidate 40 mg ONCE ONCE IV 07/04/24 15:55 07/04/24 17:17 DC 07/04/24 15:55 Midazolam HCl 50 ml @ 1 mls/hr Q24H IV 07/04/24 15:55 07/04/24 16:00 Time of 1ST Reevaluation: 13:15 Reevaluation 1ST: Unchanged Time of 2ND Reevaluation: 17:10 Reevaluation 2ND: Worsened Patient Education/Counseling: Pt Unresponsive Family Education/Counseling: No Family Present Additional Information I reviewed the following notes from patient's past medical encounters:04/22/24 The following tests were ordered, and results were reviewed by me: PHA, CT, XY, LABS I reviewed and agreed with the following test results read by other providers:CT, XY I discussed treatment and results with medical personnel and hospitalist pt presented with right anterior medial thigh pain, feeling feverish with hy potension, shocky. initial concerns are for necrotizing fasciitis, however, so far the CTs do not show convincing signs of this. he was started on the sepsis protocol and on multiple pressors. pt suddenly developed a seizure then went into cardiopulmonary arrest. a CTA and head CT are ordered to assess the cause of the seizure and rule out PE. pt is intubated has a triple lumen line placed. pt is spiking a fever and continues to decompensate despite of maximizing out on 4 pressors. he is not stable for CTs. we will admit him and stabilize him before further workups Sepsis Sepsis Reasesment Focused Exam Sepsis focused exam: focus exam completed, time: (1649) Departure 1 Departure Time of Disposition: 18:18 Impression: Primary Impression: New onset seizure Additional Impressions: Respiratory arrest Septic shock Cardiac arrest Severe sepsis Disposition: ADMITTED INPATIENT Admit to: ICU Condition: Critical Critical Care Note Critical Care Time?: Yes (>90min-critical care time only) Critical care comment: Due to concerns for patients condition deteriorating, the care required my highest level of attention and readiness to intervene. I assessed the patient, reviewed the medical records, ordered the appropriate tests and treatments, then reassessed for results and responsiveness. I communicated with medical personnel and consultants and formulated a plan of care. Total critical care time excludes any procedures Stability Stability form required: No I personally scribed for MARY HULL MD ([email or web address]) on 07/04/24 at 13:17. Electronically submitted by Mainor Kemp ([email or web address]). MARY HULL MD Jul 04, 2024 13:17
[2024-07-04 14:07] LABS: Hemoglobin 8.7 g/dL (13.5-17.5)
[2024-07-04] MEDS: LACTATED RINGER'S 2,350 ML IV ONE (14:08)
[2024-07-04 14:09] LABS: Hematocrit 27.2 % (41.0-53.0); Mean Corpuscular Hemoglobin 23.9 pg (28.0-32.0); Mean Corpuscular Hgb Conc. 32.1 g/dL (32.0-36.0); Mean Corpuscular Volume 74.6 fL (80.0-100.0); Platelet Count (auto) 357 10^3/uL (140-450); Red Blood Cells 3.65 10^6/uL (4.5-5.90); White Blood Cell 10.6 10^3/uL (4.4-10.8)
[2024-07-04 14:13] LABS: Basophils % (manual) 0 (0.0-2.0); Blast Cells 0; Eosinophils % (manual) 0 (0-7); Metamyelocytes % 0; Myelocytes % 0; Promyelocytes % 0; Reactive Lymphocytes 0
[2024-07-04 14:17] LABS: Alanine Aminotransferase 23 U/L (7-40); Albumin 3.6 g/dL (3.2-4.8); Alkaline Phosphatase 57 U/L (46-116); Anion Gap 10 (5-15); Aspartate Aminotransferase 18 U/L (13-40); BUN/Creatinine Ratio 9.9 (10.0-20.0); Blood Urea Nitrogen 10 mg/dL (9-23); Calcium 8.7 mg/dL (8.7-10.4); Carbon Dioxide 22 mmol/L (20-31); Potassium 3.6 mmol/L (3.5-5.1); Sodium 140 mmol/L (136-145)
[2024-07-04 14:18] LABS: Bilirubin, Total 0.4 mg/dL (0.2-1.0); Total Protein 6.7 g/dL (5.7-8.2)
[2024-07-04 14:19] LABS: Chloride 108 mmol/L (98-107); Glucose 115 mg/dL (74-106)
[2024-07-04] MEDS: fentaNYL CITRATE 100 MCG/2 ML VL IV ONE (14:19)
[2024-07-04 14:21] LABS: Lactic Acid w/Reflex 2.4 mmol/L (0.4-2.0)
[2024-07-04] MEDS: IOHEXOL 300 MG/ML 100ML BOTTLE IJ ONE (14:48)
[2024-07-04 14:49] LABS: Band Neutrophils % (manual) 12; Lymphocytes % (manual) 11 (10.0-50.0); Monocytes % (manual) 1 (0-12); Platelet Estimate Adequate
[2024-07-04 14:50] LABS: Hypochromia Slight
[2024-07-04] MEDS: PIPERACILLIN-TAZO 4.5GM 100 ML IV SCH (15:29)
[2024-07-04] MEDS ORDERED: VANCOMYCIN PER PHARMACY 0 MG IV SCH (15:30)
--- NOTE | 2024-07-04 15:31 | DVH ---
CLINICAL INFORMATION: 34 years old, Male; rule out necrotizing fasciitis. No other clinical informat ion was provided. TECHNIQUE: Axial CT images of the pelvis were obtained without IV contrast. Coronal and sagittal refo rmatted images were obtained, reviewed, and stored. All CT scans at this medical facility are perf ormed using dose modulation techniques as appropriate to a performed exam including the following: Au tomated exposure control was utilized; adjustment of the MA and/or KV according to patient size; and use of iterative reconstruction technique. CTDIvol = 35.93, 0.41, 0.41, 0.07 mGy DLP = 1089.83 mGy-cm COMPARISON: None FINDINGS: There is moderate subcutaneous edema involving the visualized portions of the subcutaneous tissues around the right hemipelvis right hip. Portions of the right hip subcutaneous tissues are ex cluded from the pazyf-jf-mffn of the exam. There is associated skin thickening, possible cellulitis i n the appropriate clinical setting. No organized fluid collection identified within the [id number]-[id number] of the exam to suggest abscess. No soft tissue gas identified within the zvbmm-gx-scyx of the exam t o suggest necrotizing fasciitis. There are mildly prominent right inguinal lymph nodes measuring up t o 1.6 x 1.4 cm, likely reactive. Osseous structures appear intact. Moderate joint space narrowing in both hips. Intrapelvic anatomy appears unremarkable. Small fat containing umbilical hernia. IMPRESSION: Soft tissue inflammatory changes involving the subcutaneous tissues around the right hip, likely cell ulitis in the appropriate clinical setting. No organized fluid collection or soft tissue gas visualiz ed within the [id number]-pe-hcvn of the exam to suggest abscess or necrotizing fasciitis. Correlate with clinical findings.
[2024-07-04] MEDS: LORazepam 2MG/ML-1ML VIAL ONE (15:41)
[2024-07-04] MEDS: VANCOMYCIN 1GM/250ML KIT 250 ML IV SCH (15:45)
[2024-07-04] MEDS: LORazepam 2MG/ML-1ML VIAL IV ONE (15:45)
[2024-07-04] MEDS: ETOMIDATE (2MG/ML) 20ML VIAL IV ONE ×2 (15:55→15:56)
--- NOTE | 2024-07-04 15:56 | DVH ---
CHEST RADIOGRAPH Indication: sepsis Technique: Single frontal view of the chest was obtained COMPARISON: CHEST PORTABLE on DOS: 08/04/20, CHEST PORTABLE on DOS: 10/26/19 FINDINGS: Lines and Tubes: None Lungs: Clear Pleura: No effusion. No pneumothorax. Cardiomediastinal contours: Unremarkable Bones: Unremarkable IMPRESSION: No acute disease.
[2024-07-04] MEDS: MIDAZOLAM DRIP 50 mg/50mL 50 ML IV ONE (15:57)
[2024-07-04] MEDS: MIDAZOLAM DRIP 50 mg/50mL 50 ML IV SCH (16:00)
--- NOTE | 2024-07-04 16:08 | DVH ---
EXAM: CT RT LOWER EXTREMITY W CON INDICATION: r/o necrotizing fascitis EXAM DATE: 07/04/2024 03:05 PM COMPARISON: None TECHNIQUE: Multiple axial CT images of the right lower extremity were obtained using bone algorithm. Axial and coronal reformatting was done. Bone and soft tissue windows were reviewed. IV contrast was administered Radiation Dose Information: CT Dose: CTDI volume is 24.09 mGy. Dose-length product is 2818.59 mGy*cm Findings/Impression: Evaluation is limited despite IV contrast, likely due to edema. There is no evidence of an acute fracture, dislocation, blastic, or lytic lesions. No radiopaque fore ign bodies. Marked right lower extremity soft tissue edema with skin thickening. Soft tissue ulcer along the posterior right distal lower extremity with a tract extending 7.4 cm supe riorly that contains fluid and foci of air. Additional soft tissue ulcer at the posterior right ankle with a tract extending 5.5 cm superiorly th at also contains fluid and foci of air. Foci of air appears to be localized to these fluid collections/abscesses. Cannot entirely exclude nec rotizing fasciitis.
[2024-07-04] MEDS: NOREPINEPHRINE 8 MG/250ML KIT 250 ML IV SCH (16:28)
[2024-07-04] MEDS: EPINEPHrine HCL 250 ML IV ONE ×3 (16:29→22:29)
[2024-07-04] MEDS ORDERED: PHENYLEPHRINE IV 250 ML IV SCH (16:30)
[2024-07-04] MEDS ORDERED: NOREPINEPHRINE 8 MG/250ML KIT 250 ML IV SCH (16:30)
[2024-07-04] MEDS: PHENYLEPHRINE IV 250 ML IV ONE (16:31)
[2024-07-04] MEDS: fentaNYL Drip 2500mCg/250mlNS 250 ML IV ONE (17:00)
--- NOTE | 2024-07-04 17:01 | RESUS ---
CODE BLUE ASSESSSMENT History of Events History of Events: RENE MARTINEZ CALLED OVERHEAD. PT WAS CODE SEPSIS, SEE EMR AND NOTES Initial Information Date: Jul 04, 2024 Time: 15:54 Location of Arrest: ER Arrest Witnessed: Yes CPR started initial time: 17:54 CPR started by whom: Hospital Staff Type of arrest: Cardiac, Respiratory, Adult, Witnessed Spontaneous Respirations: No Pulse Present: No Monitoring: ECG, Pulse Oximetry Crash Cart Opened and Supplies: Yes Airway Ventilation Breathing at Onset: Assisted Oxygen Delivery Method: Ambu-Bag Time of first Assisted Ventila: 15:54 Artificial Ventilation: Bag/Mask Intubation Time: 16:07 Intubation Size: 8.0 cuffed Intubated by: DR HULL Intubation Attempts: 1 Intubated orally: Yes Intubated Nasaly: No Tube secured at: 24 Cricoid pressure done: Yes CO2 indicator used: Yes Confirmation: Auscultation, Exhaled CO2, Chest X-ray Circulation Circulation #1: Time: 15:57 Pulse Rate (adult): 0 Circulation Comment: ASYSTOLE Circulation #2: Time: 15:59 Pulse Rate (adult): 124 Circulation Comment: SINUS TACHYCARDIA Circulation #3: Time: 16:01 Pulse Rate (adult): 0 Circulation Comment: PULSES LOST - CPR RESTARTED Circulation #4: Time: 16:03 Pulse Rate (adult): 120 Circulation Comment: PEA Circulation #5: Time: 16:06 Pulse Rate (adult): 164 Blood Pressure Systolic: 68 Blood Pressure Diastolic: 22 Circulation Comment: SINUS TACHYCARDIA Medications & Response Medications and Responses #1: Medication Time: 15:55 ADULT Medications Given ADULT: Epinephrine 1 mg, Sodium Bacarbinate 50 meq Route of Administration: IV EKG Rhythm: Asystole Medications and Responses #2: Medication Time: 16:02 ADULT Medications Given ADULT: Epinephrine 1 mg Route of Administration: IV EKG Rhythm: Asystole Medications and Responses #3: Medication Time: 16:03 ADULT Medications Given ADULT: Sodium Bacarbinate 50 meq Route of Administration: IV EKG Rhythm: PEA Medications and Responses #4: Medication Time: 16:05 ADULT Medications Given ADULT: Epinephrine 1 mg Route of Administration: IV EKG Rhythm: PEA Nurses Notes Irvin Coma Scale Eye Opening: None (1) Irwin Coma Scale Verbal: None (1) Irwin Coma Scale Motor: None (1) Glascow Total: 3 Bedside Blood Glucose: 104 EKG Rhythm: Sinus Tachycardia Time Code Ended Time Code Ended: 16:06 Post Arrest Status: Ventilated Outcome of code: Successful Code Team Present: HALI ORTIZ, RN MARIAM, RT SHAYY, HS LAZARO, HS DR DELLA RIGGINS, ERT ANGELINA, ERT ROSC Time of ROSC: 16:06 LAZARO HEAD Jul 04, 2024 17:01
[2024-07-04] MEDS ORDERED: VASOPRESSIN 20 UNITS in SODIUM CHL 0.9% 99 ML IV SCH (17:15)
--- NOTE | 2024-07-04 17:32 | DVH ---
CHEST RADIOGRAPH Indication: OGT placement Technique: Single frontal view of the chest was obtained COMPARISON: XY CHEST PORTABLE on DOS: 07/04/24, CHEST PORTABLE on DOS: 08/04/20, CHEST PORTABLE on DOS: 10/26/19 FINDINGS: Lines and Tubes: Endotracheal tube and left central venous catheter in satisfactory position. Lungs: Congestion Pleura: No effusion. No pneumothorax. Cardiomediastinal contours: Unremarkable Bones: Unremarkable IMPRESSION: Enteric catheter is not visualized.
--- NOTE | 2024-07-04 17:33 | DVH ---
CHEST RADIOGRAPH Indication: ng tube palcement Technique: Single frontal view of the chest was obtained COMPARISON: XY CHEST PORTABLE on DOS: 07/04/24, CHEST PORTABLE on DOS: 08/04/20, CHEST PORTABLE on DOS: 10/26/19 FINDINGS: Lines and Tubes: Endotracheal tube, enteric catheter and left central venous catheter in satisfactory position. Lungs: Congestion Pleura: No effusion. No pneumothorax. Cardiomediastinal contours: Unremarkable Bones: Unremarkable IMPRESSION: Lines and tubes in satisfactory position.
[2024-07-04] MEDS: VASOPRESSIN 20 UNITS in SODIUM CHL 0.9% 99 ML IV SCH (17:34)
[2024-07-04] MEDS ORDERED: NOREPINEPHRINE BITARTRATE 16 MG in SODIUM CHL 0.9% 234 ML IV SCH (18:00)
[2024-07-04] MEDS: NOREPINEPHRINE BITARTRATE 16 MG in SODIUM CHL 0.9% 234 ML IV SCH (18:15)
[2024-07-04] MEDS: PHENYLEPHRINE INJ 40 MG in SODIUM CHL 0.9% 246 ML IV SCH (18:15)
[2024-07-04] MEDS: fentaNYL Drip 2500mCg/250mlNS 250 ML IV SCH (18:15)
[2024-07-04] MEDS: ACETAMINOPHEN IV 1000 MG/100ML (10MG/ML) IV ONE (18:57)
[2024-07-04 19:04] LABS: Base Excess -13.5 mmol/L (-2.0-3.0)
[2024-07-04] MEDS: ALBUMIN 5% 50 ML IV ONE (20:36)
[2024-07-04] MEDS: CLINDAMYCIN 900MG IV 50 ML IV ONE (20:37)
--- NOTE | 2024-07-04 21:08 | ECG ---
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
--- NOTE | 2024-07-04 21:21 | DVHNC2 ---
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) Indication: Hypotension, CVP monitoring, Volume resuscitation, Inability to obtain IV, Suspected infection Room prepared for procedure: Yes Tooth Cutter Contact Wheel performed hand hygien: Yes Maximal sterile barrier precau: Mask/Eye shield, Sterile gown, Cap, Sterlie gloves, Large sterlie drape Skin Preparation: Chlorhexidine gluconate Skin preparation completely dr: Yes Insertion site: Left, Internal jugular, Line secured Central line catheter type: Cvo-czalvffi-nia dialysis Number of lumens: 3 Central line exchanged over a: No Antiseptic ointment applied to: Yes Post Assessment: Chest X-Ray, No Pneumothorax Informed consent obtained: No Risks/benefits/alt described: No UTO Consent Could not obtain consents due to emergent procedure. Dr. Davison supervised placement. Date of Service: Jul 04, 2024 Billing Provider: MARY DAVISON MD Common Visit Codes: PROCEDURE ONLY Procedure Codes: 90958-RFLTVU NON-TUNNEL CV CATH HELEN LIMON RESIDENT Jul 04, 2024 21:21
[2024-07-04] MEDS: AZTREONAM 1GM INJ 1 GM in D5W 5% 50 ML IV ONE ×2 (21:37→21:43)
[2024-07-04] MEDS: AZTREONAM 1 GM INJ VIAL ONE (21:42)
[2024-07-04] MEDS ORDERED: VANCOMYCIN 1GM/250ML KIT 200 ML IV SCH (22:00)
[2024-07-04] MEDS: DEXTROSE 50% SYRINGE 50 ML IV ONE (22:10)
[2024-07-04] MEDS: DEXTROSE 10% 1,000 ML IV ONE (22:15)
[2024-07-04 22:22] LABS: Basophils # (auto) 0 10 ^3/uL (0-0.2); Eosinophils # (auto) 0 10 ^3/uL (0-0.8); Eosinophils % (auto) 0.1 % (0.0-7.0); Hemoglobin 8.2 g/dL (13.5-17.5); Mean Corpuscular Hemoglobin 23.1 pg (28.0-32.0); Monocytes # (auto) 0.6 10 ^3/uL (0-1.3); Red Cell Distribution Width 19.3 % (11.8-14.3)
[2024-07-04 22:23] LABS: Chloride 105 mmol/L (98-107); Potassium 3.6 mmol/L (3.5-5.1)
[2024-07-04 22:24] LABS: Anion Gap 12 (5-15); Basophils % (auto) 0.3 % (0.0-2.0); Hematocrit 28.4 % (41.0-53.0); Lymphocytes % (auto) 25.8 % (10.0-50.0); Mean Corpuscular Hgb Conc. 28.9 g/dL (32.0-36.0); Mean Corpuscular Volume 79.9 fL (80.0-100.0); Monocytes % (auto) 5.1 % (0.0-12.0); Neutrophils # (auto) 8.1 10 ^3/uL (1.6-8.6); Neutrophils % (auto) 68.7 % (37.0-80.0); Platelet Count (auto) 135 10^3/uL (140-450); Red Blood Cells 3.55 10^6/uL (4.5-5.90); White Blood Cell 11.8 10^3/uL (4.4-10.8)
[2024-07-04 22:27] LABS: Nucleated Red Blood Cells % 3.3 %
[2024-07-04 22:29] LABS: BUN/Creatinine Ratio 5.8 (10.0-20.0); Blood Urea Nitrogen 14 mg/dL (9-23); Calcium 6.3 mg/dL (8.7-10.4); Carbon Dioxide 15 mmol/L (20-31); Glucose 331 mg/dL (74-106); Sodium 132 mmol/L (136-145)
[2024-07-04] MEDS: EPINEPHrine HCL 1 MG/10 ML SYRG ONE (22:57)
--- NOTE | 2024-07-04 22:58 | DVH ---
CHEST RADIOGRAPH Indication: Central line placement Technique: Single frontal view of the chest was obtained Comparison: XY CHEST XRAY 1 VIEW on DOS: 07/04/24, XY CHEST XRAY 1 VIEW on DOS: 07/04/24, XY CHEST PORT ABLE on DOS: 07/04/24 FINDINGS: Lines and Tubes: Left IJ CVC with tip terminating in the SVC. Enteric tube projecting towards the GE junction without visualization of the distal tip and side port due to patient placement. Lungs: Clear Pleura: No effusion. No pneumothorax. Cardiomediastinal contours: Unremarkable Bones: Unremarkable IMPRESSION: Clear lungs.
[2024-07-04 23:00] LABS: Base Excess -20.2 mmol/L (-2.0-3.0)
[2024-07-04] MEDS ORDERED: ONDANSETRON HCL 4 MG/2 ML VIAL IV PRN (23:00)
--- NOTE | 2024-07-04 23:54 | RESUS ---
RENE LAKHANI ASSESSSMENT History of Events History of Events: Pt was previously coded with successful ROSC and currently on multiple vasopressors. Pt then went bradycardic and hypotensive, pulses were lost and rene lakhani was called. Initial Information Date: Jul 04, 2024 Time: 22:00 Location of Arrest: ER Arrest Witnessed: Yes CPR started by whom: Hospital Staff Pre-Hospital Care: Pre-Code Care (inpatient) Type of arrest: Cardiac, Respiratory, Adult, Witnessed Spontaneous Respirations: No Pulse Present: No Monitoring: ECG, Pulse Oximetry, Telemetry Crash Cart Opened and Supplies: Yes Airway Ventilation Breathing at Onset: Assisted O2 Sat by Pulse Oximetry: 100 Oxygen Delivery Method: Mechanical Ventilator Time of first Assisted Ventila: 22:00 Artificial Ventilation: Bag/Endo tube Intubation Size: 8.0 cuffed Intubated orally: Yes Intubated Nasaly: No Tube secured at: 24 (cm @lip) Confirmation: Chest X-ray Comments: previously intubated during previous code Circulation Circulation #1: Time: 22:00 Pulse Rate (adult): 0 Blood Pressure Systolic: 0 Blood Pressure Diastolic: 0 Temperature (Fahrenheit): 104.5 (F- rectally) Circulation #2: Time: 22:03 Pulse Rate (adult): 0 Blood Pressure Systolic: 0 Blood Pressure Diastolic: 0 Circulation Comment: ASYSTOLE Circulation #3: Time: 22:05 Pulse Rate (adult): 0 Blood Pressure Systolic: 0 Blood Pressure Diastolic: 0 Circulation Comment: ASYSTOLE Circulation #4: Time: 22:08 Pulse Rate (adult): 0 Blood Pressure Systolic: 0 Blood Pressure Diastolic: 0 Circulation Comment: ASYSTOLE Circulation #5: Time: 22:10 Pulse Rate (adult): 149 Blood Pressure Systolic: 69 Blood Pressure Diastolic: 31 Temperature (Fahrenheit): 104.5 Circulation Comment: ROSC Procedure - IV Procedure - IV : IV Side: Right IV Location: Upper Arm Anterior IV Catheter Type: PICC Line IV Placed: In Hospital IV Line Care: Saline Flush Comment placed in hospital stay prior to code Medications & Response Medications and Responses #1: Medication Time: 22:00 ADULT Medications Given ADULT: Epinephrine 1 mg Route of Administration: IV Heart Rate: 0 EKG Rhythm: Asystole Blood Pressure Systolic: 0 Blood Pressure Diastolic: 0 EKG Rhythm: Asystole Medications and Responses #2: Medication Time: 22:04 ADULT Medications Given ADULT: Epinephrine 1 mg, Sodium Bacarbinate 50 meq, D50 (amp), Calcium Chloride 10 mL Route of Administration: IV EKG Rhythm: PEA Blood Pressure Systolic: 0 Blood Pressure Diastolic: 0 EKG Rhythm: PEA Medications and Responses #3: Medication Time: 22:07 ADULT Medications Given ADULT: Epinephrine 1 mg Route of Administration: IV EKG Rhythm: Asystole Blood Pressure Systolic: 0 Blood Pressure Diastolic: 0 EKG Rhythm: Asystole Procedure - Central Venous Cat Central venous catheter site: Lt IJ Comment: placed in hospital stay prior to code Procedure - Cuevas Catheter Urinary Catheter Type/Location: 2-way Urethral Comment: placed in hospital stay prior to code Nurses Notes Irvin Coma Scale Eye Opening: None (1) Irvin Coma Scale Verbal: None (1) [place] Coma Scale Motor: None (1) Glascow Total: 3 Pupil Reaction: Non Reactive Bedside Blood Glucose: 16 (recheck 52) EKG Rhythm: Sinus Tachycardia (HR 149 @ 2213) Nurses Notes - Comment: pt maxed on Eldon, levo, vaso. Currently on versed and fent. Post ROSC pt was to be placed on epi gtt. and D10 gtt. Time Code Ended Time Code Ended: 22:10 Post Arrest Status: Unconscious, Ventilated Outcome of code: Successful Code Team Present: Dr. Wolf; Harsh Rodriguez, RN -ER charge; Pablo Gardiner RN - HS; Lorraine Myrick RN - HS; Aundrea Pulliam, RT; Lenore Paez RN- Primary RN. Maria Del Carmen Dubon RN; Karla Olvera RN; Josafat Ingram, ERT; Shola Florence, ERT; Suni Raygoza, ERT; Dev Olvera, ERT. Post Resuscitation Neurologica Pupil Size: 7 Comment: dialated, fixed, non reactive ROSC Time of ROSC: 22:10 Pt Meets Criteria for Therapeu: Yes Therapeutic Hyperthermia Start: Yes (Cooling blanket placed after ROSC) Time Therapeutic Hyperthermia: 22:10 PABLO GARDINER Jul 04, 2024 23:54
[2024-07-05] VITALS (20 sets, daily range): BP systolic 0–200; BP diastolic 0–133; PULSE 74–120; RESP 12–24; TEMP 92.8–103.4; O2SAT 96–100
[2024-07-05] MEDS: CALCIUM GLUC 1,000mg/50ml-NS 50 ML IV ONE (00:04)
[2024-07-05] MEDS: SODIUM BICARB 8.4% 50Meq/50ml SYR Vial IV ONE ×3 (00:04→10:08)
[2024-07-05] MEDS ORDERED: NITROGLYCERIN 0.4 MG SL TAB SL PRN (00:30)
[2024-07-05] MEDS: SODIUM BICARB 50mEq/50ml Vial 150 ML in D5W 5% 1,000 ML IV ONE (00:46)
[2024-07-05] MEDS: VASOPRESSIN 20 UNIT/ML ONE (01:36)
[2024-07-05 01:51] LABS: Base Excess -25.5 mmol/L (-2.0-3.0)
[2024-07-05] MEDS: DEXTROSE (50%) 50ML SYRG IV ONE ×3 (02:39→10:49)
[2024-07-05 02:44] LABS: Hematocrit 24.5 % (41.0-53.0); Mean Corpuscular Volume 85.3 fL (80.0-100.0); Platelet Count (auto) 127 10^3/uL (140-450); Red Blood Cells 2.87 10^6/uL (4.5-5.90); Red Cell Distribution Width 19.2 % (11.8-14.3); White Blood Cell 14.7 10^3/uL (4.4-10.8)
[2024-07-05 02:54] LABS: Anion Gap 25 (5-15); BUN/Creatinine Ratio 4.4 (10.0-20.0); Bilirubin, Total 0.8 mg/dL (0.2-1.0); Blood Urea Nitrogen 17 mg/dL (9-23); Calcium 8.9 mg/dL (8.7-10.4); Sodium 145 mmol/L (136-145)
[2024-07-05] MEDS: EPINEPHrine HCL 250 ML IV ONE (03:06)
[2024-07-05] MEDS: EPINEPHrine HCL 250 ML IV SCH (03:14)
[2024-07-05 03:35] LABS: Basophils % (manual) 0 (0.0-2.0); Blast Cells 0; Eosinophils % (manual) 0 (0-7); Hemoglobin 6.6 g/dL (13.5-17.5); Metamyelocytes % 0; Myelocytes % 0; Promyelocytes % 0; Reactive Lymphocytes 0
[2024-07-05 03:42] LABS: Alanine Aminotransferase > 6000 U/L (7-40); Albumin 2.6 g/dL (3.2-4.8); Alkaline Phosphatase 141 U/L (46-116); Aspartate Aminotransferase > 6000 U/L (13-40); Carbon Dioxide 11 mmol/L (20-31); Chloride 109 mmol/L (98-107); Glucose 192 mg/dL (74-106); Total Protein 4.8 g/dL (5.7-8.2)
[2024-07-05] MEDS: HYDROCORTISONE SOD SUCC 100 MG/2ML INJ VIAL IV ONE (03:57)
[2024-07-05] MEDS: PANTOPRAZOLE 40 MG/10 ML VIAL INJ IV SCH (03:57)
[2024-07-05 05:04] LABS: Band Neutrophils % (manual) 21; Lymphocytes % (manual) 22 (10.0-50.0)
[2024-07-05 05:05] LABS: Anisocytosis Moderate; Monocytes % (manual) 1 (0-12); Ovalocytes FEW; Platelet Estimate Decreased
[2024-07-05 05:56] LABS: Hematocrit 19.3 % (41.0-53.0); Mean Corpuscular Hemoglobin 23.1 pg (28.0-32.0); Mean Corpuscular Hgb Conc. 26.4 g/dL (32.0-36.0); Mean Corpuscular Volume 87.4 fL (80.0-100.0); Platelet Count (auto) 103 10^3/uL (140-450); Red Blood Cells 2.21 10^6/uL (4.5-5.90); Red Cell Distribution Width 19.1 % (11.8-14.3); White Blood Cell 15.8 10^3/uL (4.4-10.8)
[2024-07-05] MEDS: PHENYLEPHRINE IV 500 ML IV ONE (06:09)
[2024-07-05 06:14] LABS: Hemoglobin 5.1 g/dL (13.5-17.5)
[2024-07-05 06:16] LABS: Basophils % (manual) 0 (0.0-2.0); Blast Cells 0; Eosinophils % (manual) 0 (0-7); Metamyelocytes % 0; Monocytes % (manual) 0 (0-12); Myelocytes % 0; Promyelocytes % 0; Reactive Lymphocytes 0
[2024-07-05] MEDS: CLINDAMYCIN 900MG IV 50 ML IV SCH (06:53)
[2024-07-05 07:44] LABS: Base Excess -26.8 mmol/L (-2.0-3.0)
[2024-07-05] MEDS: AZTREONAM 1GM INJ 1 GM in D5W 5% 50 ML IV SCH (07:53)
[2024-07-05] MEDS: AZTREONAM 1 GM INJ VIAL ONE (08:30)
[2024-07-05 08:40] LABS: Anisocytosis Slight; Band Neutrophils % (manual) 5; Lymphocytes % (manual) 21 (10.0-50.0); Platelet Estimate Decreased
[2024-07-05] MEDS: SODIUM CHLORIDE 0.9% 2,000 ML IV ONE (09:15)
--- NOTE | 2024-07-05 09:38 | DVHINCON2 ---
Date of service: Jul 05, [address] Burger Reason for Consultation COLEMAN History of Present Illness 34-year-old male with known history of chronic right lower extremity lymphedema presented for further evaluation and management of several-day history of fever and malaise. The history was obtained through the patient's and patient's father were at bedside. His clinical course has been notable for two separate episodes of cardiac arrest. He currently is in the emergency department intubated, profoundly hypotensive. Lab data notable for elevated serum potassium, arterial blood gas with severe acidemia, significant transaminitis, and acute anemia. Patient's iron was at the bedside during my evaluation. Past Medical History Right lower extremity lymphedema Allergies: Coded Allergies: Piperacillin (Verified Allergy, Severe, 07/05/24) Tazobactam (Verified Allergy, Severe, 07/05/24) Home Meds Active Scripts Amoxicillin & Pot Clavulanate (AUGMENTIN TABLET) 875 Mg Tb, 875 MG PO BID for 5 Days, #10 TAB 0 Refills Prov:SUNIL LYNNE NP 04/22/24 Promethazine-Dm (Promethazine Dm 6.25-15 mg/5Ml) 1 Avril Avril, 5 ML PO TIDP PRN for 10 Days, #150 ML 0 Refills Prov:SUNIL LYNNE NP 04/22/24 Benzonatate (Benzonatate) 200 Mg Cap, 1 CAP PO TID for 10 Days, #30 CAP 0 Refills Prov:SUNIL LYNNE NP 04/22/24 Clindamycin Hcl (Clindamycin Hcl) 300 Mg Cap, 300 MG PO Q6HR for 7 Days, #30 CAP Prov:THANG MCGINNIS MD 10/01/20 Levofloxacin (Levaquin) 500 Mg Tab, 500 MG PO DAILY for 7 Days, #7 TAB Prov:THANG MCGINNIS MD 10/01/20 Reported Medications Naproxen (Naproxen) 500 Mg Tab, 500 MG PO Q6HP, TAB 09/29/20 Current Medications Current Medications Medications (Trade) Dose Ordered Sig/Frandy Route PRN Reason Start Time Stop Time Status Last Admin Norepinephrine Bitartrate 250 ml @ 3.75 mls/hr Q24H IV 07/04/24 13:00 07/04/24 18:03 DC 07/04/24 16:28 Vancomycin HCl 200 ml @ 200 mls/hr Q12HR IV 07/04/24 22:00 UNV Piperacillin Sod/ Tazobactam Sod 100 ml @ 25 mls/hr Q8HR IV 07/04/24 14:00 07/04/24 22:48 DC 07/04/24 15:29 Vancomycin HCl 0 ml @ 0 mls/hr UD IV 07/04/24 15:30 Vancomycin HCl 250 ml @ 250 mls/hr Q1H IV 07/04/24 15:45 07/04/24 17:44 DC 07/04/24 16:45 Vasopressin 20 units/Sodium Chloride 100 ml @ 9 mls/hr Q11H7M IV 07/04/24 17:15 07/05/24 01:36 Vasopressin 20 units/Sodium Chloride 100 ml @ 9 mls/hr Q11H7M IV 07/04/24 17:15 07/04/24 17:16 DC Midazolam HCl 50 ml @ 1 mls/hr Q24H IV 07/04/24 15:55 07/04/24 22:39 Phenylephrine HCl 40 mg/Sodium Chloride 250 ml @ 15 mls/hr [id number] IV 07/04/24 18:00 07/05/24 06:00 Norepinephrine Bitartrate 16 mg/ Sodium Chloride 250 ml @ 1.875 mls/ hr Q24H IV 07/04/24 18:00 07/04/24 18:02 DC Norepinephrine Bitartrate 16 mg/ Sodium Chloride 250 ml @ 1.875 mls/ hr Q24H IV 07/04/24 18:00 07/05/24 02:55 Norepinephrine Bitartrate 250 ml @ 3.75 mls/hr Q24H IV 07/04/24 16:30 07/04/24 18:07 DC Phenylephrine HCl 250 ml @ 30 mls/hr Q8H20M IV 07/04/24 16:30 07/04/24 18:07 DC Fentanyl Citrate 250 ml @ 2.5 mls/hr Q24H IV 07/04/24 18:15 07/04/24 18:15 Aztreonam 1 gm/ Dextrose 50 ml @ 100 mls/hr Q8HR IV 07/05/24 06:00 07/05/24 07:53 Clindamycin Phosphate 50 ml @ 50 mls/hr Q8HR IV 07/05/24 06:00 07/05/24 06:53 Ondansetron HCl (Zofran) 4 mg Q4HPRN PRN IV NAUSEA / VOMITING 07/04/24 23:00 Nitroglycerin (Ntrostat Sublingual) 0.4 mg Q5MINP PRN SL FOR CHEST PAIN 07/05/24 00:30 Pantoprazole Sodium (Protonix) 40 mg DAILY IV 07/05/24 10:00 07/05/24 03:19 DC Epinephrine HCl 250 ml @ 7.5 mls/hr Q24H IV 07/05/24 03:15 07/05/24 03:22 Pantoprazole Sodium (Protonix) 40 mg BID IV 07/05/24 03:30 07/05/24 03:57 Family History: Cardiovascular disease G8 MOTHER Diabetes mellitus G8 SISTER Review of Systems Unable to obtain due to patient's critical status H&P Exam Vital Signs/I&O Vital Sign Date Time Temp Pulse Resp B/P (MAP) Pulse Ox O2 Delivery O2 Flow Rate FiO2 07/05/24 07:48 96 24 89/49 (62) 99 50 07/05/24 07:30 Mechanical Ventilator+ 0 07/05/24 05:37 98.7 98.7 Intake and Output 07/04/24 07/05/24 19:00 07:00 Intake Total 3013.625 ml 3110.125 ml Output Total 0 ml Balance 3013.625 ml 3110.125 ml Intake Oral 0 ml IV Total 3013.625 ml 1877.125 ml Blood Product 1022 ml Other 211 ml Output Urine Total 0 ml Physical Exam Gen: nonresponsive, intubated heent:+ ETT lungs: Coarse Breath sounds cvs: no appreciable friction rub abd: Bowel sounds diminished ext: Noted chronic right lower extremity lymphedema skin: no petechiae neuro: Comatose Labs/Diagnostic Data Labs/Diagnostic Data Laboratory Tests Test 07/05/24 07:33 07/05/24 05:14 07/05/24 01:54 07/05/24 01:38 Range/Units Blood Gas Specimen Type Arterial Arterial Blood Gas Sample Site Left radial Left radial Blood Gas Patient Temperature 37.0 37.0 Arterial Blood Date Drawn [id number] Arterial Blood pH 6.859 *L 6.912 *L 7.350-7.450 Arterial Blood Partial Pressure CO2 22.8 L 27.4 L 35.0-48.0 mmHg Arterial Blood Partial Pressure O2 318.7 *H 351.3 *H 83.0-108.0 mmHg Arterial Blood HCO3 4.0 L 5.4 L 21.0-28.0 mmol/L Arterial Blood Oxygen Saturation 99.6 H 99.7 H 94.0-98.0 % Arterial Blood Base Excess -26.8 L -25.5 L -2.0-3.0 mmol/L Arterial Blood Oxyhemoglobin 97.4 98.6 H 94.0-98.0 % Arterial Blood Carboxyhemoglobin 0.9 0.2 L 0.5-1.5 % Arterial Blood Methemoglobin 1.3 0.9 0.0-1.5 % Gustavo Test Modified Modified Blood Gas Total Hemoglobin 5.00 *L 7.70 L 13.5-17.5 g/dL Blood Gas Set Respiration Rate 24.0 24.0 Blood Gas Modality Vent - ac Vent - ac FiO2 % 100.0 100.0 Blood Gas Tidal Volume 500.0 500.0 Blood Gas PEEP or CPAP 5.0 5.0 Blood Gas Critical Value Read Back Yes Yes Blood Gas Notified Whom Dr.l.yaccobe Md zoë burger Blood Gas Notified Time [id number] Blood Gas Notified By Kelton spivey Rt vivienne lemus White Blood Count 15.8 H 14.7 H 4.4-10.8 10^3/uL Red Blood Count 2.21 L 2.87 L 4.5-5.90 10^6/uL Hemoglobin 5.1 #*L 6.6 #*L 13.5-17.5 g/dL Hematocrit 19.3 #L 24.5 #L 41.0-53.0 % Mean Corpuscular Volume 87.4 85.3 # 80.0-100.0 fL Mean Corpuscular Hemoglobin 23.1 L 23.0 L 28.0-32.0 pg Mean Corpuscular Hemoglobin Concent 26.4 L 27.0 L 32.0-36.0 g/dL Red Cell Distribution Width 19.1 H 19.2 H 11.8-14.3 % Platelet Count 103 L 127 L 140-450 10^3/uL Mean Platelet Volume 7.9 7.8 6.9-10.8 fL Neutrophils (%) (Auto) 37.0-80.0 % Lymphocytes (%) (Auto) 10.0-50.0 % Monocytes (%) (Auto) 0.0-12.0 % Basophils (%) (Auto) 0.0-2.0 % Neutrophils # (Auto) 1.6-8.6 10 ^3/uL Lymphocytes # (Auto) 0.4-5.4 10 ^3/uL Monocytes # (Auto) 0-1.3 10 ^3/uL Differential Total Cells Counted 100.0 100.0 100 Neutrophils % (Manual) 74 56 37.0-80.0 Band Neutrophils % (Manual) 5 21 Lymphocytes % (Manual) 21 22 10.0-50.0 Monocytes % (Manual) 0 1 0-12 Eosinophils % (Manual) 0 0 0-7 Basophils % (Manual) 0 0 0.0-2.0 Metamyelocytes % (manual) 0 0 Myelocytes % (Manual) 0 0 Promyelocytes % (Manual) 0 0 Blast Cells % (Manual) 0 0 Nucleated Red Blood Cells % Reactive Lymphocytes 0 0 Platelet Estimate Decreased Decreased Anisocytosis (manual) Slight Moderate Lovell Cells Few Few Ovalocytes Few Sodium Level 145 # 136-145 mmol/L Potassium Level 5.0 3.5-5.1 mmol/L Chloride Level 109 H 98-107 mmol/L Carbon Dioxide Level 11 L 20-31 mmol/L Anion Gap 25 H 5-15 Blood Urea Nitrogen 17 9-23 mg/dL Creatinine 3.89 H 0.700-1.30 mg/dL Glomerular Filtration Rate Calc 20 >90 mL/min BUN/Creatinine Ratio 4.4 L 10.0-20.0 Serum Glucose 192 #H 74-106 mg/dL Calcium Level 8.9 8.7-10.4 mg/dL Total Bilirubin 0.8 0.2-1.0 mg/dL Aspartate Amino Transferase (AST) > 6000 H 13-40 U/L Alanine Aminotransferase (ALT) > 6000 H 7-40 U/L Alkaline Phosphatase 141 H 46-116 U/L Total Protein 4.8 L 5.7-8.2 g/dL Albumin 2.6 L 3.2-4.8 g/dL Random Vancomycin Level 27.3 H 5-10 ug/mL Test 07/04/24 22:52 07/04/24 21:56 07/04/24 18:55 07/04/24 18:42 Range/Units Blood Gas Specimen Type Arterial Arterial Blood Gas Sample Site Right brachial Left radial Blood Gas Patient Temperature 37.0 37.0 Arterial Blood Date Drawn [id number] Arterial Blood pH 7.032 *L 7.236 *L 7.350-7.450 Arterial Blood Partial Pressure CO2 35.7 30.7 L 35.0-48.0 mmHg Arterial Blood Partial Pressure O2 201.4 H 267.4 H 83.0-108.0 mmHg Arterial Blood HCO3 9.3 L 12.7 L 21.0-28.0 mmol/L Arterial Blood Oxygen Saturation 99.0 H 99.3 H 94.0-98.0 % Arterial Blood Base Excess -20.2 L -13.5 L -2.0-3.0 mmol/L Arterial Blood Oxyhemoglobin 98.2 H 98.3 H 94.0-98.0 % Arterial Blood Carboxyhemoglobin 0.1 L 0.3 L 0.5-1.5 % Arterial Blood Methemoglobin 0.7 0.7 0.0-1.5 % Gustavo Test N/a Yes Blood Gas Total Hemoglobin 9.00 L 11.00 L 13.5-17.5 g/dL Blood Gas Set Respiration Rate 24.0 24.0 Blood Gas Modality Vent - ac Vent - ac FiO2 % 100.0 100.0 Blood Gas Tidal Volume 500.0 500.0 Blood Gas PEEP or CPAP 5.0 5.0 Blood Gas Critical Value Read Back Yes Yes Blood Gas Notified Whom nati Vigil Dr s Blood Gas Notified Time [id number] Blood Gas Notified By Aundrea toth, chairlift operator Aundrea toth, chairlift operator White Blood Count 11.8 H 4.4-10.8 10^3/uL Red Blood Count 3.55 L 4.5-5.90 10^6/uL Hemoglobin 8.2 L 13.5-17.5 g/dL Hematocrit 28.4 L 41.0-53.0 % Mean Corpuscular Volume 79.9 #L 80.0-100.0 fL Mean Corpuscular Hemoglobin 23.1 L 28.0-32.0 pg Mean Corpuscular Hemoglobin Concent 28.9 L 32.0-36.0 g/dL Red Cell Distribution Width 19.3 H 11.8-14.3 % Platelet Count 135 #L 140-450 10^3/uL Mean Platelet Volume 7.7 6.9-10.8 fL Neutrophils (%) (Auto) 68.7 37.0-80.0 % Lymphocytes (%) (Auto) 25.8 10.0-50.0 % Monocytes (%) (Auto) 5.1 0.0-12.0 % Eosinophils (%) (Auto) 0.1 0.0-7.0 % Basophils (%) (Auto) 0.3 0.0-2.0 % Neutrophils # (Auto) 8.1 1.6-8.6 10 ^3/uL Lymphocytes # (Auto) 3.0 0.4-5.4 10 ^3/uL Monocytes # (Auto) 0.6 0-1.3 10 ^3/uL Eosinophils # (Auto) 0 0-0.8 10 ^3/uL Basophils # (Auto) 0 0-0.2 10 ^3/uL Nucleated Red Blood Cells 3.3 % Sodium Level 132 #L 136-145 mmol/L Potassium Level 3.6 3.5-5.1 mmol/L Chloride Level 105 98-107 mmol/L Carbon Dioxide Level 15 L 20-31 mmol/L Anion Gap 12 5-15 Blood Urea Nitrogen 14 9-23 mg/dL Creatinine 2.41 H 0.700-1.30 mg/dL Glomerular Filtration Rate Calc 35 >90 mL/min BUN/Creatinine Ratio 5.8 L 10.0-20.0 Serum Glucose 331 #H 74-106 mg/dL Lactic Acid Level 6.0 *H 0.4-2.0 mmol/L Calcium Level 6.3 L 8.7-10.4 mg/dL Blood Gas Spontaneous Rate 25 Troponin I High Sensitivity 638 *H </=54 ng/L Test 07/04/24 15:42 07/04/24 15:23 07/04/24 14:51 07/04/24 13:36 Range/Units POC Glucose 104 70-106 mg/dl Lactic Acid Level 1.4 2.4 *H 0.4-2.0 mmol/L Troponin I High Sensitivity 4 5 </=54 ng/L White Blood Count 10.6 4.4-10.8 10^3/uL Red Blood Count 3.65 L 4.5-5.90 10^6/uL Hemoglobin 8.7 L 13.5-17.5 g/dL Hematocrit 27.2 L 41.0-53.0 % Mean Corpuscular Volume 74.6 L 80.0-100.0 fL Mean Corpuscular Hemoglobin 23.9 L 28.0-32.0 pg Mean Corpuscular Hemoglobin Concent 32.1 32.0-36.0 g/dL Red Cell Distribution Width 19.0 H 11.8-14.3 % Platelet Count 357 140-450 10^3/uL Mean Platelet Volume 8.8 6.9-10.8 fL Neutrophils (%) (Auto) 37.0-80.0 % Lymphocytes (%) (Auto) 10.0-50.0 % Monocytes (%) (Auto) 0.0-12.0 % Basophils (%) (Auto) 0.0-2.0 % Neutrophils # (Auto) 1.6-8.6 10 ^3/uL Lymphocytes # (Auto) 0.4-5.4 10 ^3/uL Monocytes # (Auto) 0-1.3 10 ^3/uL Differential Total Cells Counted 100.0 100 Neutrophils % (Manual) 76 37.0-80.0 Band Neutrophils % (Manual) 12 Lymphocytes % (Manual) 11 10.0-50.0 Monocytes % (Manual) 1 0-12 Eosinophils % (Manual) 0 0-7 Basophils % (Manual) 0 0.0-2.0 Metamyelocytes % (manual) 0 Myelocytes % (Manual) 0 Promyelocytes % (Manual) 0 Blast Cells % (Manual) 0 Reactive Lymphocytes 0 Platelet Estimate Adequate Hypochromasia (manual) Slight Microcytosis Slight Sodium Level 140 136-145 mmol/L Potassium Level 3.6 3.5-5.1 mmol/L Chloride Level 108 H 98-107 mmol/L Carbon Dioxide Level 22 20-31 mmol/L Anion Gap 10 5-15 Blood Urea Nitrogen 10 9-23 mg/dL Creatinine 1.01 0.700-1.30 mg/dL Glomerular Filtration Rate Calc 100 >90 mL/min BUN/Creatinine Ratio 9.9 L 10.0-20.0 Serum Glucose 115 H 74-106 mg/dL Calcium Level 8.7 8.7-10.4 mg/dL Total Bilirubin 0.4 0.2-1.0 mg/dL Aspartate Amino Transferase (AST) 18 13-40 U/L Alanine Aminotransferase (ALT) 23 7-40 U/L Alkaline Phosphatase 57 46-116 U/L Total Protein 6.7 5.7-8.2 g/dL Albumin 3.6 3.2-4.8 g/dL Assessment IMP: 1) Hemodynamically mediated COLEMAN/VMN, possible ischemic ATN 2) septic/ hemorrhagic shock with multiorgan failure 3) acute respiratory failure 4) s/p cardiac arrest x two episodes 5) severe acidemia REC: - IV alkali - 2 L normal saline bolus - patient's agreed to patient receiving packed RBC transfusions - discussed at length with patient's and patient's father regarding current clinical state overall poor/ grave prognosis. Unable to obtain a blood pressure reading on BP cuff. Arterial line planned. - patient's expressed understanding. Thank you for the consultation Plan discussed with: Spouse, Other SHEYLA FELDMAN MD Jul 05, 2024 09:38
[2024-07-05] MEDS ORDERED: PANTOPRAZOLE 40 MG/10 ML VIAL INJ IV SCH (10:00)
[2024-07-05] MEDS: DEXTROSE 50% SYRINGE 50 ML IV ONE ×2 (11:24)
--- NOTE | 2024-07-05 13:08 | DVHINCON2 ---
Date of service: Jul 05, [address] valle Reason for Consultation vent management (covering for Dr Jaret Parham) History of Present Illness Pt is a 34-year-old male with h/o morbid obesity, DM, HTN, lymphedema. Pt had a witnessed episode of cardiac arrest requiring CPR, intubated in the ER . Currently on 4 pressors. ABG pH 6/8, co2 22, P02 318 Family History: Cardiovascular disease G8 MOTHER Diabetes mellitus G8 SISTER Allergies: Coded Allergies: Piperacillin (Verified Allergy, Severe, 07/05/24) Tazobactam (Verified Allergy, Severe, 07/05/24) Home Meds Active Scripts Amoxicillin & Pot Clavulanate (AUGMENTIN TABLET) 875 Mg Tb, 875 MG PO BID for 5 Days, #10 TAB 0 Refills Prov:SUNIL LYNNE NP 04/22/24 Promethazine-Dm (Promethazine Dm 6.25-15 mg/5Ml) 1 Avril Avril, 5 ML PO TIDP PRN for 10 Days, #150 ML 0 Refills Prov:SUNIL LYNNE NP 04/22/24 Benzonatate (Benzonatate) 200 Mg Cap, 1 CAP PO TID for 10 Days, #30 CAP 0 Refills Prov:SUNIL LYNNE NP 04/22/24 Clindamycin Hcl (Clindamycin Hcl) 300 Mg Cap, 300 MG PO Q6HR for 7 Days, #30 CAP Prov:THANG MCGINNIS MD 10/01/20 Levofloxacin (Levaquin) 500 Mg Tab, 500 MG PO DAILY for 7 Days, #7 TAB Prov:THANG MCGINNIS MD 10/01/20 Reported Medications Naproxen (Naproxen) 500 Mg Tab, 500 MG PO Q6HP, TAB 09/29/20 Current Medications Current Medications Medications (Trade) Dose Ordered Sig/Frandy Route PRN Reason Start Time Stop Time Status Last Admin Vancomycin HCl 200 ml @ 200 mls/hr Q12HR IV 07/04/24 22:00 UNV Piperacillin Sod/ Tazobactam Sod 100 ml @ 25 mls/hr Q8HR IV 07/04/24 14:00 07/04/24 22:48 DC 07/04/24 15:29 Vancomycin HCl 0 ml @ 0 mls/hr UD IV 07/04/24 15:30 Vancomycin HCl 250 ml @ 250 mls/hr Q1H IV 07/04/24 15:45 07/04/24 17:44 DC 07/04/24 16:45 Vasopressin 20 units/Sodium Chloride 100 ml @ 9 mls/hr Q11H7M IV 07/04/24 17:15 07/05/24 01:36 Vasopressin 20 units/Sodium Chloride 100 ml @ 9 mls/hr Q11H7M IV 07/04/24 17:15 07/04/24 17:16 DC Midazolam HCl 50 ml @ 1 mls/hr Q24H IV 07/04/24 15:55 07/04/24 22:39 Phenylephrine HCl 40 mg/Sodium Chloride 250 ml @ 15 mls/hr [id number] IV 07/04/24 18:00 07/05/24 06:00 Norepinephrine Bitartrate 16 mg/ Sodium Chloride 250 ml @ 1.875 mls/ hr Q24H IV 07/04/24 18:00 07/04/24 18:02 DC Norepinephrine Bitartrate 16 mg/ Sodium Chloride 250 ml @ 1.875 mls/ hr Q24H IV 07/04/24 18:00 07/05/24 12:00 Norepinephrine Bitartrate 250 ml @ 3.75 mls/hr Q24H IV 07/04/24 16:30 07/04/24 18:07 DC Phenylephrine HCl 250 ml @ 30 mls/hr Q8H20M IV 07/04/24 16:30 07/04/24 18:07 DC Fentanyl Citrate 250 ml @ 2.5 mls/hr Q24H IV 07/04/24 18:15 07/04/24 18:15 Aztreonam 1 gm/ Dextrose 50 ml @ 100 mls/hr Q8HR IV 07/05/24 06:00 07/05/24 07:53 Clindamycin Phosphate 50 ml @ 50 mls/hr Q8HR IV 07/05/24 06:00 07/05/24 06:53 Ondansetron HCl (Zofran) 4 mg Q4HPRN PRN IV NAUSEA / VOMITING 07/04/24 23:00 Nitroglycerin (Ntrostat Sublingual) 0.4 mg Q5MINP PRN SL FOR CHEST PAIN 07/05/24 00:30 Pantoprazole Sodium (Protonix) 40 mg DAILY IV 07/05/24 10:00 07/05/24 03:19 DC Epinephrine HCl 250 ml @ 7.5 mls/hr Q24H IV 07/05/24 03:15 07/05/24 03:22 Pantoprazole Sodium (Protonix) 40 mg BID IV 07/05/24 03:30 07/05/24 10:08 Review of Systems Unable to perform due to patient being intubated and sedated Vital Signs Vital Signs Date Time Temp Pulse Resp B/P (MAP) Pulse Ox O2 Delivery O2 Flow Rate FiO2 07/05/24 12:03 75 24 35/20 (25) 96 50 07/05/24 11:39 93.6 93.6 07/05/24 07:30 Mechanical Ventilator+ 0 Labs/Diagnostic Data Labs Test 07/05/24 11:19 07/05/24 10:45 07/05/24 10:43 07/05/24 07:33 Range/Units POC Glucose 26 *L 70-106 mg/dl Blood Gas Specimen Type Arterial Blood Gas Sample Site Left radial Blood Gas Patient Temperature 37.0 Arterial Blood Date Drawn [id number] Arterial Blood pH 6.859 *L 7.350-7.450 Arterial Blood Partial Pressure CO2 22.8 L 35.0-48.0 mmHg Arterial Blood Partial Pressure O2 318.7 *H 83.0-108.0 mmHg Arterial Blood HCO3 4.0 L 21.0-28.0 mmol/L Arterial Blood Oxygen Saturation 99.6 H 94.0-98.0 % Arterial Blood Base Excess -26.8 L -2.0-3.0 mmol/L Arterial Blood Oxyhemoglobin 97.4 94.0-98.0 % Arterial Blood Carboxyhemoglobin 0.9 0.5-1.5 % Arterial Blood Methemoglobin 1.3 0.0-1.5 % Gutsavo Test Modified Blood Gas Total Hemoglobin 5.00 *L 13.5-17.5 g/dL Blood Gas Set Respiration Rate 24.0 Blood Gas Modality Vent - ac FiO2 % 100.0 Blood Gas Tidal Volume 500.0 Blood Gas PEEP or CPAP 5.0 Blood Gas Critical Value Read Back Yes Blood Gas Notified Whom Blood Gas Notified Time [id number] Blood Gas Notified By Kelton Baker 07/05/24 05:14 07/05/24 01:54 07/04/24 21:56 07/04/24 18:55 Range/Units Differential Total Cells Counted 100.0 100 Neutrophils % (Manual) 74 37.0-80.0 Band Neutrophils % (Manual) 5 Lymphocytes % (Manual) 21 10.0-50.0 Monocytes % (Manual) 0 0-12 Eosinophils % (Manual) 0 0-7 Basophils % (Manual) 0 0.0-2.0 Metamyelocytes % (manual) 0 Myelocytes % (Manual) 0 Promyelocytes % (Manual) 0 Blast Cells % (Manual) 0 Nucleated Red Blood Cells % Reactive Lymphocytes 0 Platelet Estimate Decreased Anisocytosis (manual) Slight Danya Cells Few Ovalocytes Few Sodium Level 145 # 136-145 mmol/L Potassium Level 5.0 3.5-5.1 mmol/L Chloride Level 109 H 98-107 mmol/L Carbon Dioxide Level 11 L 20-31 mmol/L Anion Gap 25 H 5-15 Blood Urea Nitrogen 17 9-23 mg/dL Creatinine 3.89 H 0.700-1.30 mg/dL Glomerular Filtration Rate Calc 20 >90 mL/min BUN/Creatinine Ratio 4.4 L 10.0-20.0 Serum Glucose 192 #H 74-106 mg/dL Calcium Level 8.9 8.7-10.4 mg/dL Total Bilirubin 0.8 0.2-1.0 mg/dL Aspartate Amino Transferase (AST) > 6000 H 13-40 U/L Alanine Aminotransferase (ALT) > 6000 H 7-40 U/L Alkaline Phosphatase 141 H 46-116 U/L Total Protein 4.8 L 5.7-8.2 g/dL Albumin 2.6 L 3.2-4.8 g/dL Random Vancomycin Level 27.3 H 5-10 ug/mL Eosinophils (%) (Auto) 0.1 0.0-7.0 % Eosinophils # (Auto) 0 0-0.8 10 ^3/uL Basophils # (Auto) 0 0-0.2 10 ^3/uL Lactic Acid Level 6.0 *H 0.4-2.0 mmol/L Blood Gas Spontaneous Rate 25 Test 07/04/24 18:42 07/04/24 13:36 Range/Units Troponin I High Sensitivity 638 *H </=54 ng/L Hypochromasia (manual) Slight Microcytosis Slight Microbiology Date/Time Source Procedure Growth Status 07/04/24 16:40 Sputum Gram Stain Pending Resulted 07/04/24 16:40 Sputum Respiratory Culture - Preliminary Resulted Assessment s/p cardiac arrest septic shock h/o right leg lymphedema acute resp failure metabolic acidosis plan sedation prn vent changes made increase rate to 30 to partially compensate for severe metabolic acidosis abx IV bicarb pressors family at bedside aware of poor prgnosis Plan discussed with: Other (Rn) BAR PATE MD Jul 05, 2024 13:08
[2024-07-05] MEDS ORDERED: LORazepam 2MG/ML-1ML VIAL IV PRN (14:15)
[2024-07-05] MEDS ORDERED: MORPHINE SULFATE 4 MG/ML SYR/VIAL ONE (14:31)
[2024-07-05] MEDS: LORazepam 2MG/ML-1ML VIAL IV PRN (14:33)
[2024-07-05] MEDS: MORPHINE SULFATE 4 MG/ML SYR/VIAL IV PRN (14:33)
--- NOTE | 2024-07-05 14:47 | DVHINCON2 ---
Date of service: Jul 05, [address] Elias Reason for Consultation Evaluation for anoxic brain injury History of Present Illness pt's sister and came to the bedside and explained that pt has been having fever and increased weakness for more than just today, as pt reported. he has been deteriorating for a few days. i updated them and they understand the critical condition pt is in and the guarded prognosis. informed me that pt may have a zosyn allergy. he has not had a reaction, thus far, but i will change the antibiotics to clindamycin, azetreonam and stop the zosyn 34M presents to the ER w/ a prior Hx of chronic lymphedema which may be associated to bthe c/c of LE. Pt reports that he recently had Sx on the to remove excess fluid from the right LE and was not given antibiotics after. Pt notes that she has been having right leg pain, fever and gen weakness. Denies chills, N/V/D, SOB, CP. Chief Complaint: Lower Extremity Code report 07/04/2024 15 54, witnessed cardiopulmonary arrest risk: 16:06 Code report 07/04/2024 2200, witnessed cardiopulmonary arrest risk: 2210 Blood culture, 07/04/2024: ABG, 07/04/2024: Metabolic acidosis, two six : Metabolic acidosis WBC/HB/PLT/MCV, 07/04/2024: 10.6/8.7/357/74.6. 07/05/2024: 15.8/5.1/103/87.4 BUN/CR, 07/05/2024: 17/3.89 Lactic acid, 07/04/2019 5:2.4, 1.4, 6 Glucose, 07/04/2024: 104, 07/05/2024: 47, 26 Troponin one high sensitivity, 07/04/2024: 638 TBI/AST/ALT/AP, 07/05/2024: 0.12/5999/6000/141 Chest x-ray, 07/04/2024: Clear lungs. Chronic lymphoma Denies all surgeries Reviewed,noncontributory to illness, Unknown Smoker: Non-Smoker Alcohol: Denies ETOH Use Drugs: Denies Drug Use Lives In: Home Family History: Cardiovascular disease G8 MOTHER Diabetes mellitus G8 SISTER Allergies: Coded Allergies: Piperacillin (Verified Allergy, Severe, 07/05/24) Tazobactam (Verified Allergy, Severe, 07/05/24) Home Meds Active Scripts Amoxicillin & Pot Clavulanate (AUGMENTIN TABLET) 875 Mg Tb, 875 MG PO BID for 5 Days, #10 TAB 0 Refills Prov:MAGEDRAUL NÚÑEZO Jeannine DISH CLOTH INSPECTOR 04/22/24 Promethazine-Dm (Promethazine Dm 6.25-15 mg/5Ml) 1 Avril Avril, 5 ML PO TIDP PRN for 10 Days, #150 ML 0 Refills Prov:MAGEDSUNIL DISH CLOTH INSPECTOR 04/22/24 Benzonatate (Benzonatate) 200 Mg Cap, 1 CAP PO TID for 10 Days, #30 CAP 0 Refills Prov:MAGEDSUNIL DISH CLOTH INSPECTOR 04/22/24 Clindamycin Hcl (Clindamycin Hcl) 300 Mg Cap, 300 MG PO Q6HR for 7 Days, #30 CAP Prov:THANG MCGINNIS MD 10/01/20 Levofloxacin (Levaquin) 500 Mg Tab, 500 MG PO DAILY for 7 Days, #7 TAB Prov:THANG MCGINNIS MD 10/01/20 Reported Medications Naproxen (Naproxen) 500 Mg Tab, 500 MG PO Q6HP, TAB 09/29/20 Current Medications Current Medications Medications (Trade) Dose Ordered Sig/Frandy Route PRN Reason Start Time Stop Time Status Last Admin Vancomycin HCl 200 ml @ 200 mls/hr Q12HR IV 07/04/24 22:00 UNV Vancomycin HCl 0 ml @ 0 mls/hr UD IV 07/04/24 15:30 Vancomycin HCl 250 ml @ 250 mls/hr Q1H IV 07/04/24 15:45 07/04/24 17:44 DC 07/04/24 16:45 Vasopressin 20 units/Sodium Chloride 100 ml @ 9 mls/hr Q11H7M IV 07/04/24 17:15 07/05/24 01:36 Vasopressin 20 units/Sodium Chloride 100 ml @ 9 mls/hr Q11H7M IV 07/04/24 17:15 07/04/24 17:16 DC Midazolam HCl 50 ml @ 1 mls/hr Q24H IV 07/04/24 15:55 07/04/24 22:39 Phenylephrine HCl 40 mg/Sodium Chloride 250 ml @ 15 mls/hr [id number] IV 07/04/24 18:00 07/05/24 06:00 Norepinephrine Bitartrate 16 mg/ Sodium Chloride 250 ml @ 1.875 mls/ hr Q24H IV 07/04/24 18:00 07/04/24 18:02 DC Norepinephrine Bitartrate 16 mg/ Sodium Chloride 250 ml @ 1.875 mls/ hr Q24H IV 07/04/24 18:00 07/05/24 12:00 Norepinephrine Bitartrate 250 ml @ 3.75 mls/hr Q24H IV 07/04/24 16:30 07/04/24 18:07 DC Phenylephrine HCl 250 ml @ 30 mls/hr Q8H20M IV 07/04/24 16:30 07/04/24 18:07 DC Fentanyl Citrate 250 ml @ 2.5 mls/hr Q24H IV 07/04/24 18:15 07/04/24 18:15 Aztreonam 1 gm/ Dextrose 50 ml @ 100 mls/hr Q8HR IV 07/05/24 06:00 07/05/24 07:53 Clindamycin Phosphate 50 ml @ 50 mls/hr Q8HR IV 07/05/24 06:00 07/05/24 06:53 Ondansetron HCl (Zofran) 4 mg Q4HPRN PRN IV NAUSEA / VOMITING 07/04/24 23:00 Nitroglycerin (Ntrostat Sublingual) 0.4 mg Q5MINP PRN SL FOR CHEST PAIN 07/05/24 00:30 Pantoprazole Sodium (Protonix) 40 mg DAILY IV 07/05/24 10:00 07/05/24 03:19 DC Epinephrine HCl 250 ml @ 7.5 mls/hr Q24H IV 07/05/24 03:15 07/05/24 03:22 Pantoprazole Sodium (Protonix) 40 mg BID IV 07/05/24 03:30 07/05/24 10:08 Lorazepam (Ativan Inj) 1 mg Q15MP PRN IV SEIZURES 07/05/24 14:15 07/05/24 14:32 DC Morphine Sulfate 4 mg Q15MP PRN IV MODERATE PAIN (4-6 PAIN SCALE) 07/05/24 14:15 Lorazepam (Ativan Inj) 1 mg Q15MP PRN IV ANXIETY 07/05/24 14:30 Vital Signs Vital Signs Date Time Temp Pulse Resp B/P (MAP) Pulse Ox O2 Delivery O2 Flow Rate FiO2 07/05/24 14:45 0.0 07/05/24 13:25 93.0 78 24 41 93.0 07/05/24 12:03 96 50 07/05/24 07:30 Mechanical Ventilator+ Labs/Diagnostic Data Labs Test 07/05/24 10:45 07/05/24 07:33 07/05/24 05:14 07/05/24 01:54 Range/Units POC Glucose 26 *L 70-106 mg/dl Blood Gas Specimen Type Arterial Blood Gas Sample Site Left radial Blood Gas Patient Temperature 37.0 Arterial Blood Date Drawn [id number] Arterial Blood pH 6.859 *L 7.350-7.450 Arterial Blood Partial Pressure CO2 22.8 L 35.0-48.0 mmHg Arterial Blood Partial Pressure O2 318.7 *H 83.0-108.0 mmHg Arterial Blood HCO3 4.0 L 21.0-28.0 mmol/L Arterial Blood Oxygen Saturation 99.6 H 94.0-98.0 % Arterial Blood Base Excess -26.8 L -2.0-3.0 mmol/L Arterial Blood Oxyhemoglobin 97.4 94.0-98.0 % Arterial Blood Carboxyhemoglobin 0.9 0.5-1.5 % Arterial Blood Methemoglobin 1.3 0.0-1.5 % Gustavo Test Modified Blood Gas Total Hemoglobin 5.00 *L 13.5-17.5 g/dL Blood Gas Set Respiration Rate 24.0 Blood Gas Modality Vent - ac FiO2 % 100.0 Blood Gas Tidal Volume 500.0 Blood Gas PEEP or CPAP 5.0 Blood Gas Critical Value Read Back Yes Blood Gas Notified Whom Blood Gas Notified Time [id number] Blood Gas Notified By Unemployment [employer] Hearing Officer allyssa White Blood Count 15.8 H 4.4-10.8 10^3/uL Red Blood Count 2.21 L 4.5-5.90 10^6/uL Hemoglobin 5.1 #*L 13.5-17.5 g/dL Hematocrit 19.3 #L 41.0-53.0 % Mean Corpuscular Volume 87.4 80.0-100.0 fL Mean Corpuscular Hemoglobin 23.1 L 28.0-32.0 pg Mean Corpuscular Hemoglobin Concent 26.4 L 32.0-36.0 g/dL Red Cell Distribution Width 19.1 H 11.8-14.3 % Platelet Count 103 L 140-450 10^3/uL Mean Platelet Volume 7.9 6.9-10.8 fL Neutrophils (%) (Auto) 37.0-80.0 % Lymphocytes (%) (Auto) 10.0-50.0 % Monocytes (%) (Auto) 0.0-12.0 % Basophils (%) (Auto) 0.0-2.0 % Neutrophils # (Auto) 1.6-8.6 10 ^3/uL Lymphocytes # (Auto) 0.4-5.4 10 ^3/uL Monocytes # (Auto) 0-1.3 10 ^3/uL Differential Total Cells Counted 100.0 100 Neutrophils % (Manual) 74 37.0-80.0 Band Neutrophils % (Manual) 5 Lymphocytes % (Manual) 21 10.0-50.0 Monocytes % (Manual) 0 0-12 Eosinophils % (Manual) 0 0-7 Basophils % (Manual) 0 0.0-2.0 Metamyelocytes % (manual) 0 Myelocytes % (Manual) 0 Promyelocytes % (Manual) 0 Blast Cells % (Manual) 0 Nucleated Red Blood Cells % Reactive Lymphocytes 0 Platelet Estimate Decreased Anisocytosis (manual) Slight Danya Cells Few Ovalocytes Few Sodium Level 145 # 136-145 mmol/L Potassium Level 5.0 3.5-5.1 mmol/L Chloride Level 109 H 98-107 mmol/L Carbon Dioxide Level 11 L 20-31 mmol/L Anion Gap 25 H 5-15 Blood Urea Nitrogen 17 9-23 mg/dL Creatinine 3.89 H 0.700-1.30 mg/dL Glomerular Filtration Rate Calc 20 >90 mL/min BUN/Creatinine Ratio 4.4 L 10.0-20.0 Serum Glucose 192 #H 74-106 mg/dL Calcium Level 8.9 8.7-10.4 mg/dL Total Bilirubin 0.8 0.2-1.0 mg/dL Aspartate Amino Transferase (AST) > 6000 H 13-40 U/L Alanine Aminotransferase (ALT) > 6000 H 7-40 U/L Alkaline Phosphatase 141 H 46-116 U/L Total Protein 4.8 L 5.7-8.2 g/dL Albumin 2.6 L 3.2-4.8 g/dL Random Vancomycin Level 27.3 H 5-10 ug/mL Test 07/04/24 21:56 07/04/24 18:55 07/04/24 18:42 07/04/24 13:36 Range/Units Eosinophils (%) (Auto) 0.1 0.0-7.0 % Eosinophils # (Auto) 0 0-0.8 10 ^3/uL Basophils # (Auto) 0 0-0.2 10 ^3/uL Lactic Acid Level 6.0 *H 0.4-2.0 mmol/L Blood Gas Spontaneous Rate 25 Troponin I High Sensitivity 638 *H </=54 ng/L Hypochromasia (manual) Slight Microcytosis Slight Microbiology Date/Time Source Procedure Growth Status 07/04/24 16:40 Sputum Gram Stain - Final Resulted 07/04/24 16:40 Sputum Respiratory Culture - Preliminary Resulted 07/04/24 13:36 Blood Blood Culture - Preliminary NO GROWTH AFTER 24 HOURS OF INCUBATION. Resulted Plan discussed with: Other LETICIA EVANS MD Jul 05, 2024 14:47
--- NOTE | 2024-07-05 14:57 | DVHDS2 ---
New Physician D'charge PN Admitting Diagnosis Admitting Diagnosis cardiopulmonary arrest Discharge Diagnosis cardiopulmonary arrest septic shock multiorgan failure severe metabolic acidosis acute renal failure DIC Operations or Procedures none Reason(s) For Hospitalization Surgery Hospital Course 34 M who initially came to ER for fevers and weakness along with RLE pain. Patient has lymphedema and gets drainage periodically of the leg. He was noted to have a cardiopulmonary arrest in the ER x2 and was intubated and started on mechanical ventilatory support along with multiple vasopressors to keep his BP up. His labs revealed multiorgan failure, severe metabolic acidosis and anemia requiring blood transfusion. Despite aggressive measures, he was maxed out on all pressors with BP in the 30s and a faint pulse. I discussed the overall poor prognosis with his [place] and intially family decided for a DNR which was then followed by a compassionate extubated and comfort care measures. This was carried out and medications for pain and anxiety were ordered. I was informed by the nurse the patient at 1441 on 07/05/24. Treatment Plan Discharge Condition of Discharge Good Disposition at Hospital Discharge Instructions Diet: See Comment Diet comment: Activity: Medications: Follow Up Care Discharge Statement: "Patient was advised to return to the ER or call 911 if any headaches, dizziness, shortness of breath, chest pain, abdominal pain, bleeding, fevers, or worsening of medical condition. Patient was counseled about treatment plan, medications, possible side effects, patientverbalized understanding. All questions were answered to the best of my ability. This discharge took greater then 30 minutes in planning, reviewing documentation, counseling the patient, and discussing with other team members." DIPIKA GODDARD MD Jul 05, 2024 14:57
--- NOTE | 2024-07-05 18:40 | DVHINCON2 ---
Date of service: Jul 05, 2024 Referring Physician Eloise Reason for Consultation Elevated troponin History of Present Illness This is a 34 year old male with a PMH of chronic right lower extremity lymphedema presented for further evaluation and management of several-day history of fever and malaise. The history was obtained through the patient's and patient's father were at bedside. Per chart review, the patient rec ently had surgery on the 04 of June to remove excess fluid from the RLE and was not given any post-operative antibiotics after. Patient reported RLE pain, fever and weakness. Chest x-ray showed NAD. CT RLE showed right lower extremity soft tissue edema with skin thickening. Soft tissue ulcer along the posterior right distal lower extremity with a tract extending 7.4 cm superiorly that contains fluid and foci of air. Additional soft tissue ulcer at the posterior right ankle with a tract extending 5.5 cm superiorly that also contains fluid and foci of air. His clinical course has been notable for two separate episodes of cardiac arrest. He currently is in the emergency department intubated, profoundly hypotensive. Patient receiving vasopressor for hemodynamic support. Current labs remarkable for WBC 15.8, HGB 5.1, HCT 19.3, PLT 103, EPIC INTERFACE ANALYST 3.89, Gluc 26, AST >6000, ALT >6000. Family History: Cardiovascular disease G8 MOTHER Diabetes mellitus G8 SISTER Allergies: Coded Allergies: Piperacillin (Verified Allergy, Severe, 07/05/24) Tazobactam (Verified Allergy, Severe, 07/05/24) Home Meds Active Scripts Amoxicillin & Pot Clavulanate (AUGMENTIN TABLET) 875 Mg Tb, 875 MG PO BID for 5 Days, #10 TAB 0 Refills Prov:SUNIL LYNNE NP 04/22/24 Promethazine-Dm (Promethazine Dm 6.25-15 mg/5Ml) 1 Avril Avril, 5 ML PO TIDP PRN for 10 Days, #150 ML 0 Refills Prov:SUNIL LYNNE NP 04/22/24 Benzonatate (Benzonatate) 200 Mg Cap, 1 CAP PO TID for 10 Days, #30 CAP 0 Refills Prov:SUNIL LYNNE NP 04/22/24 Clindamycin Hcl (Clindamycin Hcl) 300 Mg Cap, 300 MG PO Q6HR for 7 Days, #30 CAP Prov:THANG MCGINNIS MD 10/01/20 Levofloxacin (Levaquin) 500 Mg Tab, 500 MG PO DAILY for 7 Days, #7 TAB Prov:THANG MCGINNIS MD 10/01/20 Reported Medications Naproxen (Naproxen) 500 Mg Tab, 500 MG PO Q6HP, TAB 09/29/20 Current Medications Current Medications Medications (Trade) Dose Ordered Sig/Frandy Route PRN Reason Start Time Stop Time Status Last Admin Vancomycin HCl 200 ml @ 200 mls/hr Q12HR IV 07/04/24 22:00 UNV Piperacillin Sod/ Tazobactam Sod 100 ml @ 25 mls/hr Q8HR IV 07/04/24 14:00 07/04/24 22:48 DC 07/04/24 15:29 Vancomycin HCl 0 ml @ 0 mls/hr UD IV 07/04/24 15:30 Vancomycin HCl 250 ml @ 250 mls/hr Q1H IV 07/04/24 15:45 07/04/24 17:44 DC 07/04/24 16:45 Vasopressin 20 units/Sodium Chloride 100 ml @ 9 mls/hr Q11H7M IV 07/04/24 17:15 07/05/24 01:36 Vasopressin 20 units/Sodium Chloride 100 ml @ 9 mls/hr Q11H7M IV 07/04/24 17:15 07/04/24 17:16 DC Midazolam HCl 50 ml @ 1 mls/hr Q24H IV 07/04/24 15:55 07/04/24 22:39 Phenylephrine HCl 40 mg/Sodium Chloride 250 ml @ 15 mls/hr [id number] IV 07/04/24 18:00 07/05/24 06:00 Norepinephrine Bitartrate 16 mg/ Sodium Chloride 250 ml @ 1.875 mls/ hr Q24H IV 07/04/24 18:00 07/04/24 18:02 DC Norepinephrine Bitartrate 16 mg/ Sodium Chloride 250 ml @ 1.875 mls/ hr Q24H IV 07/04/24 18:00 07/05/24 12:00 Norepinephrine Bitartrate 250 ml @ 3.75 mls/hr Q24H IV 07/04/24 16:30 07/04/24 18:07 DC Phenylephrine HCl 250 ml @ 30 mls/hr Q8H20M IV 07/04/24 16:30 07/04/24 18:07 DC Fentanyl Citrate 250 ml @ 2.5 mls/hr Q24H IV 07/04/24 18:15 07/04/24 18:15 Aztreonam 1 gm/ Dextrose 50 ml @ 100 mls/hr Q8HR IV 07/05/24 06:00 07/05/24 07:53 Clindamycin Phosphate 50 ml @ 50 mls/hr Q8HR IV 07/05/24 06:00 07/05/24 06:53 Ondansetron HCl (Zofran) 4 mg Q4HPRN PRN IV NAUSEA / VOMITING 07/04/24 23:00 Nitroglycerin (Ntrostat Sublingual) 0.4 mg Q5MINP PRN SL FOR CHEST PAIN 07/05/24 00:30 Pantoprazole Sodium (Protonix) 40 mg DAILY IV 07/05/24 10:00 07/05/24 03:19 DC Epinephrine HCl 250 ml @ 7.5 mls/hr Q24H IV 07/05/24 03:15 07/05/24 03:22 Pantoprazole Sodium (Protonix) 40 mg BID IV 07/05/24 03:30 07/05/24 10:08 Review of Systems Unable to review as patient is critically ill, intubated Vital Signs Vital Signs Date Time Temp Pulse Resp B/P (MAP) Pulse Ox O2 Delivery O2 Flow Rate FiO2 07/05/24 13:09 93.0 79 24 0/0 93.0 07/05/24 12:03 96 50 07/05/24 07:30 Mechanical Ventilator+ 0 Physical Exam GENERAL: Intubated on ventilator. LUNGS: Decreased breath sounds. CARDIOVASCULAR: Heart sounds are good. ABDOMEN: Soft. EXT: Lymphedema of RLE. Labs/Diagnostic Data Labs Test 07/05/24 11:19 07/05/24 10:45 07/05/24 10:43 07/05/24 07:33 Range/Units POC Glucose 26 *L 70-106 mg/dl Blood Gas Specimen Type Arterial Blood Gas Sample Site Left radial Blood Gas Patient Temperature 37.0 Arterial Blood Date Drawn [id number] Arterial Blood pH 6.859 *L 7.350-7.450 Arterial Blood Partial Pressure CO2 22.8 L 35.0-48.0 mmHg Arterial Blood Partial Pressure O2 318.7 *H 83.0-108.0 mmHg Arterial Blood HCO3 4.0 L 21.0-28.0 mmol/L Arterial Blood Oxygen Saturation 99.6 H 94.0-98.0 % Arterial Blood Base Excess -26.8 L -2.0-3.0 mmol/L Arterial Blood Oxyhemoglobin 97.4 94.0-98.0 % Arterial Blood Carboxyhemoglobin 0.9 0.5-1.5 % Arterial Blood Methemoglobin 1.3 0.0-1.5 % Gustavo Test Modified Blood Gas Total Hemoglobin 5.00 *L 13.5-17.5 g/dL Blood Gas Set Respiration Rate 24.0 Blood Gas Modality Vent - ac FiO2 % 100.0 Blood Gas Tidal Volume 500.0 Blood Gas PEEP or CPAP 5.0 Blood Gas Critical Value Read Back Yes Blood Gas Notified Whom Blood Gas Notified Time [id number] Blood Gas Notified By Kelton Baker 07/05/24 05:14 07/05/24 01:54 07/04/24 21:56 07/04/24 18:55 Range/Units Differential Total Cells Counted 100.0 100 Neutrophils % (Manual) 74 37.0-80.0 Band Neutrophils % (Manual) 5 Lymphocytes % (Manual) 21 10.0-50.0 Monocytes % (Manual) 0 0-12 Eosinophils % (Manual) 0 0-7 Basophils % (Manual) 0 0.0-2.0 Metamyelocytes % (manual) 0 Myelocytes % (Manual) 0 Promyelocytes % (Manual) 0 Blast Cells % (Manual) 0 Nucleated Red Blood Cells % Reactive Lymphocytes 0 Platelet Estimate Decreased Anisocytosis (manual) Slight [place] Cells Few Ovalocytes Few Sodium Level 145 # 136-145 mmol/L Potassium Level 5.0 3.5-5.1 mmol/L Chloride Level 109 H 98-107 mmol/L Carbon Dioxide Level 11 L 20-31 mmol/L Anion Gap 25 H 5-15 Blood Urea Nitrogen 17 9-23 mg/dL Creatinine 3.89 H 0.700-1.30 mg/dL Glomerular Filtration Rate Calc 20 >90 mL/min BUN/Creatinine Ratio 4.4 L 10.0-20.0 Serum Glucose 192 #H 74-106 mg/dL Calcium Level 8.9 8.7-10.4 mg/dL Total Bilirubin 0.8 0.2-1.0 mg/dL Aspartate Amino Transferase (AST) > 6000 H 13-40 U/L Alanine Aminotransferase (ALT) > 6000 H 7-40 U/L Alkaline Phosphatase 141 H 46-116 U/L Total Protein 4.8 L 5.7-8.2 g/dL Albumin 2.6 L 3.2-4.8 g/dL Random Vancomycin Level 27.3 H 5-10 ug/mL Eosinophils (%) (Auto) 0.1 0.0-7.0 % Eosinophils # (Auto) 0 0-0.8 10 ^3/uL Basophils # (Auto) 0 0-0.2 10 ^3/uL Lactic Acid Level 6.0 *H 0.4-2.0 mmol/L Blood Gas Spontaneous Rate 25 Test 07/04/24 18:42 07/04/24 13:36 Range/Units Troponin I High Sensitivity 638 *H </=54 ng/L Hypochromasia (manual) Slight Microcytosis Slight Microbiology Date/Time Source Procedure Growth Status 07/04/24 16:40 Sputum Gram Stain Pending Resulted 07/04/24 16:40 Sputum Respiratory Culture - Preliminary Resulted Assessment Cardiopulmonary arrest. Septic shock. Multiorgan failure. Severe metabolic acidosis. Acute renal failure. DIC. Plan/Recommendation I agree with your ongoing assessment and care of plan. IV antibiotics as ordered. GI prophylactics. Vasopressors for hemodynamic support. Additional plan as per the hospital course. Critical care time of 90 minutes provided to include time spent evaluation of patient at bedside, when appropriate patient/family education for diagnosis, treatment plan, review of pertinent medical information and discussion of care with specialty providers and PCP. Mechanical ventilator parameters, treatment and adjustments have personally been reviewed by me and treatment plan by civil celebrant has also been reviewed. Plan discussed with: Other KIEL BLANCHARD MD Jul 05, 2024 13:35
--- NOTE | 2024-07-05 22:59 | DVHINCON2 ---
Family History: Cardiovascular disease G8 MOTHER Diabetes mellitus G8 SISTER Allergies: Coded Allergies: Piperacillin (Verified Allergy, Severe, 07/05/24) Tazobactam (Verified Allergy, Severe, 07/05/24) Home Meds Active Scripts Amoxicillin & Pot Clavulanate (AUGMENTIN TABLET) 875 Mg Tb, 875 MG PO BID for 5 Days, #10 TAB 0 Refills Prov:SUNIL LYNNE DOUGH MOLDER 04/22/24 Promethazine-Dm (Promethazine Dm 6.25-15 mg/5Ml) 1 Avril Avril, 5 ML PO TIDP PRN for 10 Days, #150 ML 0 Refills Prov:SUNIL LYNNE DOUGH MOLDER 04/22/24 Benzonatate (Benzonatate) 200 Mg Cap, 1 CAP PO TID for 10 Days, #30 CAP 0 Refills Prov:SUNIL LYNNE DOUGH MOLDER 04/22/24 Clindamycin Hcl (Clindamycin Hcl) 300 Mg Cap, 300 MG PO Q6HR for 7 Days, #30 CAP Prov:THANG MCGINNIS MD 10/01/20 Levofloxacin (Levaquin) 500 Mg Tab, 500 MG PO DAILY for 7 Days, #7 TAB Prov:THANG MCGINNIS MD 10/01/20 Reported Medications Naproxen (Naproxen) 500 Mg Tab, 500 MG PO Q6HP, TAB 09/29/20 Current Medications Current Medications Medications (Trade) Dose Ordered Sig/Frandy Route PRN Reason Start Time Stop Time Status Last Admin Aztreonam 1 gm/ Dextrose 50 ml @ 100 mls/hr Q8HR IV 07/05/24 06:00 07/05/24 07:53 Clindamycin Phosphate 50 ml @ 50 mls/hr Q8HR IV 07/05/24 06:00 07/05/24 06:53 Ondansetron HCl (Zofran) 4 mg Q4HPRN PRN IV NAUSEA / VOMITING 07/04/24 23:00 Nitroglycerin (Ntrostat Sublingual) 0.4 mg Q5MINP PRN SL FOR CHEST PAIN 07/05/24 00:30 Pantoprazole Sodium (Protonix) 40 mg DAILY IV 07/05/24 10:00 07/05/24 03:19 DC Epinephrine HCl 250 ml @ 7.5 mls/hr Q24H IV 07/05/24 03:15 07/05/24 03:22 Pantoprazole Sodium (Protonix) 40 mg BID IV 07/05/24 03:30 07/05/24 10:08 Lorazepam (Ativan Inj) 1 mg Q15MP PRN IV SEIZURES 07/05/24 14:15 07/05/24 14:32 DC Morphine Sulfate 4 mg Q15MP PRN IV MODERATE PAIN (4-6 PAIN SCALE) 07/05/24 14:15 07/05/24 14:33 Lorazepam (Ativan Inj) 1 mg Q15MP PRN IV ANXIETY 07/05/24 14:30 07/05/24 14:33 Vital Signs Vital Signs Date Time Temp Pulse Resp B/P (MAP) Pulse Ox O2 Delivery O2 Flow Rate FiO2 07/05/24 14:45 0.0 07/05/24 14:33 78 24 53/35 07/05/24 14:30 92.8 100 92.8 07/05/24 12:03 50 07/05/24 07:30 Mechanical Ventilator+ Labs/Diagnostic Data Labs Test 07/05/24 10:45 07/05/24 07:33 07/05/24 05:14 07/05/24 01:54 Range/Units POC Glucose 26 *L 70-106 mg/dl Blood Gas Specimen Type Arterial Blood Gas Sample Site Left radial Blood Gas Patient Temperature 37.0 Arterial Blood Date Drawn [id number] Arterial Blood pH 6.859 *L 7.350-7.450 Arterial Blood Partial Pressure CO2 22.8 L 35.0-48.0 mmHg Arterial Blood Partial Pressure O2 318.7 *H 83.0-108.0 mmHg Arterial Blood HCO3 4.0 L 21.0-28.0 mmol/L Arterial Blood Oxygen Saturation 99.6 H 94.0-98.0 % Arterial Blood Base Excess -26.8 L -2.0-3.0 mmol/L Arterial Blood Oxyhemoglobin 97.4 94.0-98.0 % Arterial Blood Carboxyhemoglobin 0.9 0.5-1.5 % Arterial Blood Methemoglobin 1.3 0.0-1.5 % Gustavo Test Modified Blood Gas Total Hemoglobin 5.00 *L 13.5-17.5 g/dL Blood Gas Set Respiration Rate 24.0 Blood Gas Modality Vent - ac FiO2 % 100.0 Blood Gas Tidal Volume 500.0 Blood Gas PEEP or CPAP 5.0 Blood Gas Critical Value Read Back Yes Blood Gas Notified Whom Blood Gas Notified Time [id number] Blood Gas Notified By Spray Foam Installer allyssa White Blood Count 15.8 H 4.4-10.8 10^3/uL Red Blood Count 2.21 L 4.5-5.90 10^6/uL Hemoglobin 5.1 #*L 13.5-17.5 g/dL Hematocrit 19.3 #L 41.0-53.0 % Mean Corpuscular Volume 87.4 80.0-100.0 fL Mean Corpuscular Hemoglobin 23.1 L 28.0-32.0 pg Mean Corpuscular Hemoglobin Concent 26.4 L 32.0-36.0 g/dL Red Cell Distribution Width 19.1 H 11.8-14.3 % Platelet Count 103 L 140-450 10^3/uL Mean Platelet Volume 7.9 6.9-10.8 fL Neutrophils (%) (Auto) 37.0-80.0 % Lymphocytes (%) (Auto) 10.0-50.0 % Monocytes (%) (Auto) 0.0-12.0 % Basophils (%) (Auto) 0.0-2.0 % Neutrophils # (Auto) 1.6-8.6 10 ^3/uL Lymphocytes # (Auto) 0.4-5.4 10 ^3/uL Monocytes # (Auto) 0-1.3 10 ^3/uL Differential Total Cells Counted 100.0 100 Neutrophils % (Manual) 74 37.0-80.0 Band Neutrophils % (Manual) 5 Lymphocytes % (Manual) 21 10.0-50.0 Monocytes % (Manual) 0 0-12 Eosinophils % (Manual) 0 0-7 Basophils % (Manual) 0 0.0-2.0 Metamyelocytes % (manual) 0 Myelocytes % (Manual) 0 Promyelocytes % (Manual) 0 Blast Cells % (Manual) 0 Nucleated Red Blood Cells % Reactive Lymphocytes 0 Platelet Estimate Decreased Anisocytosis (manual) Slight [place] Cells Few Ovalocytes Few Sodium Level 145 # 136-145 mmol/L Potassium Level 5.0 3.5-5.1 mmol/L Chloride Level 109 H 98-107 mmol/L Carbon Dioxide Level 11 L 20-31 mmol/L Anion Gap 25 H 5-15 Blood Urea Nitrogen 17 9-23 mg/dL Creatinine 3.89 H 0.700-1.30 mg/dL Glomerular Filtration Rate Calc 20 >90 mL/min BUN/Creatinine Ratio 4.4 L 10.0-20.0 Serum Glucose 192 #H 74-106 mg/dL Calcium Level 8.9 8.7-10.4 mg/dL Total Bilirubin 0.8 0.2-1.0 mg/dL Aspartate Amino Transferase (AST) > 6000 H 13-40 U/L Alanine Aminotransferase (ALT) > 6000 H 7-40 U/L Alkaline Phosphatase 141 H 46-116 U/L Total Protein 4.8 L 5.7-8.2 g/dL Albumin 2.6 L 3.2-4.8 g/dL Random Vancomycin Level 27.3 H 5-10 ug/mL Test 07/04/24 21:56 07/04/24 18:55 07/04/24 18:42 07/04/24 13:36 Range/Units Eosinophils (%) (Auto) 0.1 0.0-7.0 % Eosinophils # (Auto) 0 0-0.8 10 ^3/uL Basophils # (Auto) 0 0-0.2 10 ^3/uL Lactic Acid Level 6.0 *H 0.4-2.0 mmol/L Blood Gas Spontaneous Rate 25 Troponin I High Sensitivity 638 *H </=54 ng/L Hypochromasia (manual) Slight Microcytosis Slight Microbiology Date/Time Source Procedure Growth Status 07/04/24 16:40 Sputum Gram Stain - Final Resulted 07/04/24 16:40 Sputum Respiratory Culture - Preliminary Resulted 07/04/24 13:36 Blood Blood Culture - Preliminary NO GROWTH AFTER 24 HOURS OF INCUBATION. Resulted LUIS ALBERTO CORTES MD Jul 05, 2024 22:59
--- NOTE | 2024-07-06 07:30 | DVHHP ---
ADMIT DATE: 07/05/2024 CHIEF COMPLAINT: Coming in with right lower extremity pain, fever and chills. HISTORY OF PRESENT ILLNESS: This is a 34-year-old -[place] male with significant past medical history for right lower extremity lymphedema since age 18, who presents to Emergency Room. As stated above, the patient apparently in the last 3 to 4 days, has been having right lower extremity pain, fever and chills, recently underwent some form of lymphedema reduction surgery in [facility]. Per the family, the patient typically was given in the past prophylactic antibiotics. This time around, the patient did not have any antibiotics in the last 3 to 4 days, started having pain in his right lower extremity, fever and chills and today his symptoms got progressively worse and was brought into the Emergency Room. While presenting here, the patient apparently was tachycardic, feverish and hypotensive. The patient was given fluid resuscitation; however, went into cardiopulmonary arrest, required 10 minutes of CPR before return of circulation. The patient again had recurrent arrest hours later in the Emergency Room, requiring another 10 minutes of CPR before ROSC was brought back. Prior to his second cardiac arrest, the patient was already on 4 pressors. The patient currently on 5 pressors, currently sustaining the blood pressure in the 120s systolic. The patient does have ABG that shows that he continues to be acidotic. Family is aware of the patient's critical and unstable condition and would like everything to be completed this point in time. Most of the history was gathered from the family and the electronic medical system. PAST MEDICAL HISTORY: Lymphedema of right lower extremity, history of prior cardiopulmonary arrest and septic shock. PAST SURGICAL HISTORY: Multiple right lower extremity lymphedema surgeries, history of jaw surgery. SOCIAL HISTORY: No tobacco, no alcohol, no illicit drugs. MEDICATIONS AT HOME: Unavailable for review. MEDICATION ALLERGIES: ZOSYN. REVIEW OF SYSTEMS: Unable to obtain review of systems as the patient is currently intubated and sedated and on mechanical ventilation. PHYSICAL EXAMINATION: VITAL SIGNS: Temperature 102.6, pulse rate of 115, respiratory rate of 24, blood pressure 102/82, pulse oximetry of 100% on 100% FiO2. GENERAL: Intubated, on mechanical ventilation, currently off sedation. HEENT: Normocephalic, atraumatic. Endotracheal tube is present. Right IJ central line is also present. Mucous membranes look moist. CARDIOVASCULAR: S1, S2 positive, tachycardic rhythm. No rubs, gallops or murmurs. LUNGS: Mechanical breath sounds was appreciated. ABDOMEN: Seems to be obese, soft, nontender, nonrigid. Bowel sounds are hypoactive. EXTREMITIES: Lower extremities, the patient does have lymphedema significantly from his ankles all the way to his upper knee. The patient does have some suture sites on the posterior brown. There are no signs of any pus at the region, but there is some blood that is present. Left lower extremity seems to be without clubbing, cyanosis or edema, NEUROLOGIC: Unable to complete cranial nerve testing or motor functions. LABORATORY WORKUP: Shows a white count on presentation of 10.6, H and H of 8.7 and 27.2, platelet count of 357,000. Sodium of 132, potassium 3.6, chloride 105, carbon dioxide of 15, anion gap of 12, BUN of 14, creatinine 2.41. Serum glucose of 331, calcium 6.3. Troponin 638. Lactic acid of 6.0. Sodium of 140, potassium of 3.6, chloride of 108, carbon dioxide of 22, anion gap of 10, BUN of 10, creatinine of 1.01, serum glucose of 100. Lactic acid of 2.4. AST of 18, ALT of 23. Troponins of 638. Repeat lactic acid of 6.0. IMAGING: Chest x-ray, endotracheal tube and left central venous catheter in satisfactory position. Lungs seems to be congestion, no pleural effusions, no pneumothorax, cardiomediastinal contours are unremarkable. CT pelvis was completed. Soft tissue inflammatory changes involving the subcutaneous tissues around the right hip, likely cellulitis in the appropriate clinical setting, no organized fluid collection or soft tissue gas visualized within the field of view of the exam to suggest abscess or necrotizing fasciitis, correlate with clinical findings. CT of the lower extremity without contrast, impression, there is no evidence for acute fracture, dislocation, blastic or lytic lesion, no radiopaque foreign bodies. Marked right lower extremity soft tissue edema with skin thickening, soft tissue ulcer along the posterior right distal lower extremity with tract extending 7.4 cm superiorly with contained fluid and foci of air. Additional soft tissue ulcer at the posterior right ankle with tract extending 5.5 cm superiorly that also contains fluid and foci of air. Foci of air appears to be localized to the fluid collections/abscesses, cannot entirely exclude necrotizing fasciitis. EKG initially showed sinus tachycardia, ventricular rate of 138. Repeat EKG post ROSC circulation second time around showed sinus tachycardia with ventricular rate of 149. DIAGNOSES: * Cardiopulmonary arrest. * Septic shock. * Demand related ischemia. * Acute kidney failure. * Rectal bleeding. * Acute thrombocytopenia, likely secondary to disseminated intravascular coagulation. * Acute blood loss anemia. * Mechanical ventilation. * Right lower extremity cellulitis. PLAN: The patient will be admitted to the medical ICU for continuous cardiopulmonary monitoring. The patient's family has been informed of the patient's critical and unstable condition. The patient requiring 5 pressors at this time to maintain systolic blood pressures above 90. The patient has been initiated on broad-spectrum antibiotics in the ED and will be continued on vancomycin per pharmacy, aztreonam 1 gram IV q. 8 hours, as well as clindamycin 900 mg IV q. 8 hours. Blood cultures, urine cultures and UA have been requested. The patient additionally has received multiple boluses of IV fluids and was started on bicarb drip with D5W with 3 amps of bicarb at 125 mL an hour continuously. Strict I's and O's to be implemented. The patient seems to have developed acute renal failure likely secondary to acute tubular necrosis due to hypotensive shock. The patient has not produced any urine in the last few hours. Nephrology consultation has been requested for further assessment and evaluation. Additionally, the patient requiring 2 sets of CPRs lasting 10 minutes leading to chest trauma and likely also inducing the patient's elevated cardiac enzymes and likely has underlying demand related ischemia. Cardiology consultation with Dr. Cyndi Rick has also been requested. The patient to have an echocardiogram completed in the morning. The patient will be held off of any anticoagulation medication, given 2 episodes of rectal bleeding noted by nursing staff. The patient possibly also has underlying disseminated intravascular coagulation given his bleeding as well as reduction in his platelet counts. The patient was ordered FFP by the Emergency Room physician and has received 1 unit by the ER physician, which has been administered. The patient to have CBC q. 6 hours. Protonix has been initiated at 40 IV b.i.d. Consultation with Gastroenterology will also be requested at this point in time. The patient to have also consultation with Nephrology. As mentioned, the patient is in acute renal failure. The patient to have Pulmonology consultation given his requiring mechanical ventilation. Additionally, the patient to have Infectious Disease consultation given his septic shock and underlying likely cause of his right lower extremity infection. The patient on examination has no gag reflex despite discontinuation on fentanyl and Versed. The patient also has no pupillary light reflex with a dilated and unresponsive pupils, likely has underlying anoxic brain injury. Family has been made aware of these findings and neurology consultation has also been requested for further assessment. At this time, per the family/, the patient will remain a full code. Further recommendations will depend on the patient's hospital progression. Enrique Noriega MD LM/KENYA/REVA TID: [id number] RECEIPT: [id number]
--- NOTE | 2024-07-06 15:23 | ECG ---
[facility] Test Date: 2024-07-04 Test Time: 12:14:38 Pat Name: MOIRA PETERSEN Department: ED Room: [address] [place] [address] Gender: M Placement Manager: JONO : 1990 Requested By: MARY HULL Order Number: [id number] Reading MD: Eleazar Engle Measurements Intervals [place] Rate: 138 P: 0 MN: 0 QRS: 18 QRSD: 84 T: 34 QT: 277 QTc: 420 Interpretive Statements Junctional tachycardia Electronically Signed On 07-09-2024 21:24:02 PST by Eleazar Engle Please click the below link to view image of tracing.
--- NOTE | 2024-07-10 11:30 | ECG ---
[facility] Test Date: 2024-07-04 Test Time: 22:13:51 Pat Name: MOIRA PETERSEN Department: ER Room: [address] [place] [address] Gender: M Executive Vice President Business Development: : 1990 Requested By: MARY HULL Order Number: [id number] Reading MD: Eleazar Engle Measurements Intervals [place] Rate: 149 P: 82 NH: 130 QRS: 85 QRSD: 79 T: 37 QT: 252 QTc: 397 Interpretive Statements Sinus tachycardia ST elevation, consider inferior injury Baseline wander in lead(s) II,III,aVF,V3,V4 Electronically Signed On 07-14-2024 21:38:58 PST by Eleazar Engle Please click the below link to view image of tracing.
--- NOTE | 2024-07-12 23:32 | DVHSR ---
APPROVED REPORT EXAM: Two-dimensional and M-mode echocardiogram with Doppler and color Doppler. Blood Pressure: 89/49 mmHg INDICATION Evaluate for any wall motion abnormalities RISK FACTORS Obesity: Height: 5' 11", Weight: 220 DIMENSIONS LVDd4.8 (3.8-5.7cm)LA (2D)3.9 (1.9-4.0cm)Aortic Root3.8 (2.0-3.7cm) LVDs4.6 (2.5-4.0cm)LA (MM) (1.9-4.0cm)Aortic Cusp Exc1.9 (1.5-2.0cm) EF (%) 10.0 (55-70%)Rt. Atrium4.4 (1.9-4.0cm)Asc. Aorta cm IVSd1.2 (0.7-1.1cm)RV (D) (1.8-2.4cm) PWd1.2 (0.7-1.1cm) Mitral Valve MitralMitral Stenosis E wave0.50m/sMV Mean GR.mmHg A wave0.30m/sMV Peak GR.mmHg E/A ratio1.72D MVAcm2 Aortic Valve Aortic ValveAortic Stenosis V10.40m/Hilaria Mean GR.1mmHg V20.70m/Hilaria Peak GR.2mmHg LVOT Diameter2.6 (1.8-2.4cm)Doppler AVA3.03cm2 Pulmonic Valve V20.30m/s Conclusion MAJOR LV SYSTOLIC DYSFUNCTION LV EJECTION FRACTION IS IN RANGE OF ONLY 20% MODERATELY DILATED RV NORMAL VALVES NO EFFUSION DILATED CARDIOMYOPATHY
== END 2024-07-05 14:41 | DRG 871 ==
LOC: EDUNIT# 12:09 → ER 12:09 → EDBD 12:09 → OVERFLOW 07-05 02:51
PROVIDERS: ADMIT Student in an Organized Health Care Education/Training Program; ATTEND Student in an Organized Health Care Education/Training Program
PROC: 02HV33Z Insertion of Infusion Device into Superior Vena Cava, Percutaneous Approach (ICD-10-PCS; principal; 2024-07-04)
PROC: 0BH17EZ Insertion of Endotracheal Airway into Trachea, Via Natural or Artificial Opening (ICD-10-PCS; 2024-07-04)
PROC: 5A1935Z Respiratory Ventilation, Less than 24 Consecutive Hours (ICD-10-PCS; 2024-07-04)
PROC: 5A12012 Performance of Cardiac Output, Single, Manual (ICD-10-PCS; 2024-07-04)
PROC: 30233K1 Transfusion of Nonautologous Frozen Plasma into Peripheral Vein, Percutaneous Approach (ICD-10-PCS; 2024-07-04)
PROC: 05H933Z Insertion of Infusion Device into Right Brachial Vein, Percutaneous Approach (ICD-10-PCS; 2024-07-04)
PROC: B54MZZA Ultrasonography of Right Upper Extremity Veins, Guidance (ICD-10-PCS; 2024-07-04)
PROC: 30233N1 Transfusion of Nonautologous Red Blood Cells into Peripheral Vein, Percutaneous Approach (ICD-10-PCS; 2024-07-05)
DX: A41.9 Sepsis, unspecified organism (principal); D65 Disseminated intravascular coagulation [defibrination syndrome]; R65.21 Severe sepsis with septic shock; J96.00 Acute respiratory failure, unspecified whether with hypoxia or hypercapnia; N17.0 Acute kidney failure with tubular necrosis; E87.20 Acidosis, unspecified; D62 Acute posthemorrhagic anemia; L03.115 Cellulitis of right lower limb; K62.5 Hemorrhage of anus and rectum; G93.1 Anoxic brain damage, not elsewhere classified; C85.88 Other specified types of non-Hodgkin lymphoma, lymph nodes of multiple sites; R56.9 Unspecified convulsions; Z66 Do not resuscitate; I46.9 Cardiac arrest, cause unspecified; E11.9 Type 2 diabetes mellitus without complications; I10 Essential (primary) hypertension; I89.0 Lymphedema, not elsewhere classified; Z82.49 Family history of ischemic heart disease and other diseases of the circulatory system; Z83.3 Family history of diabetes mellitus; Z79.899 Other long term (current) drug therapy; Z88.8 Allergy status to other drugs, medicaments and biological substances
CPT/HCPCS: 31500; 36415; 36556; 36600; 71045; 72192; 73701; 80048; 80053; 80202; 82805; 82962; 83605; 84484; 85007; 85025; 85027; 86850; 86900; 86901; 86920; 87040; 87070; 87077; 87186; 87205; 92950; 93005; 93306; 94002; 94003; 96365; 96367; 96375; 99291; 99292; G0378; J0131; J0171; J2470; J2543; J3490; J7060